=== PATIENT | male | born 1935 | race Caucasian/White ===

== ENCOUNTER 2017-02-02 08:38 | Emergency (ER) | payer OTHER ==
[2017-02-02 08:49] VITALS: BP 155/57; PULSE 85; TEMP 97.7; BMI 31.9
--- NOTE | 2017-02-02 09:10 | PDOC ---
History of Present Illness - General Chief Complaint: Pain, Acute Stated Complaint: RT ARM PAIN, NUMBNESS Time Seen by Provider: 02/02/17 09:08 History Source: Patient - History of Present Illness Initial Comments: 02/02/17 09:56 Mr. Cavazos is an 81 y/o male with a PMH of, presenting to [facility] complaining of R arm pain. He states that the pain began yesterday evening before bed and was mostly in his forearm and elbow. He went to the gym yesterday (02/01/17) and did a light arm work out with repetitive motions involving his biceps. He states that now it hurts to move his arm. He states that the pain is worse when he tries to bend his elbow and when he does, the pain radiates into his bicep. He rates the pain a 10/10. Admits to joint stiffness. Denies numbness or tingling , shoulder pain, trauma, and falling. He tried taking tylenol with minimal relief. Presents today for further evaluation of his arm pain. Past History - Past Medical History Allergies/Adverse Reactions: Allergies Allergy/AdvReac Type Severity Reaction Status Date / Time No Known Allergies Allergy Verified 02/02/17 08:49 Home Medications: Ambulatory Orders Docusate Sodium [Colace -] 100 mg PO TID #30 capsule 12/30/15 Furosemide [Lasix -] 40 mg PO DAILY #30 tablet 12/30/15 Ramipril 5 mg PO DAILY #30 capsule 12/30/15 Spironolactone [Aldactone -] 25 mg PO DAILY #0 12/30/15 Acetaminophen [Tylenol .Regular Strength -] 650 mg PO Q4H PRN #0 tablet Ascorbic Acid [Vitamin C -] 500 mg PO BID tablet 04/07/16 Atorvastatin Ca [Lipitor] 10 mg PO HS tablet 04/07/16 Cyanocobalamin Vit B-12 Inj. [Vitamin B12 Injection -] 1,000 mcg IM Q7D@1000 vial 04/07/16 Ferrous Sulfate [Feosol] 325 mg PO BID ud 04/07/16 Isosorbide Mononitrate [Imdur -] 30 mg PO DAILY tab.sr.24h 04/07/16 Multivitamins [Multivit ([facility] Formulary)] 1 tab PO DAILY tab 04/07/16 Nystatin Powder [Nystop Powder -] 1 applic TP DAILY applic 04/07/16 Oxycodone HCl [Roxicodone -] 10 mg PO Q4H PRN #0 tablet MDD 60 mg 04/07/16 Polyethylene Glycol 3350 [Miralax 119 gm Btl -] 17 gm PO DAILY bottle 04/07/16 Ranitidine [Zantac -] 150 mg PO DAILY tablet 04/07/16 Anemia: No Asthma: No Cancer: Yes (PROSTATE) Cardiac Disorders: Yes (ASHD S/P [place] FOLLOWING HIP SX) CVA: No COPD: No CHF: No Dementia: No Diabetes: No GI Disorders: Yes (COLON POLYPS-) Disorders: No HTN: Yes Hypercholesterolemia: Yes Liver Disease: No Seizures: No Thyroid Disease: No - Surgical History Abdominal Surgery: No Appendectomy: No Cardiac Surgery: No Cholecystectomy: No Lung Surgery: No Neurologic Surgery: No Orthopedic Surgery: Yes (THR) - Immunization History Immunization Up to Date: Yes - Psycho/Social/Smoking Cessation Hx Anxiety: No Suicidal Ideation: No Smoking Status: Yes Smoking History: Never smoked Have you smoked in the past 12 months: No Number of Cigarettes Smoked Daily: 0 If you are a former smoker, when did you quit?: many years Cigars Per Day: 0 Hx Alcohol Use: Yes (GALSS OF WINE DAILY) Drug/Substance Use Hx: No Substance Use Type: Alcohol Hx Substance Use Treatment: No *Physical Exam - Vital Signs Last Vital Signs Temp Pulse Resp BP Pulse Ox 97.7 F 85 18 155/57 99 02/02/17 08:45 02/02/17 08:45 02/02/17 08:45 02/02/17 08:45 02/02/17 08:45 - Physical Exam Comments: 02/02/17 09:43 GENERAL: Well developed, well nourished. Awake and alert. No acute distress. MUSCULOSKELETAL Mild swelling of the R elbow. TTP of R elbow and lateral epicondyle. (+) yergasons test in R arm. Range of motion of r forearm limited; flexion to 90 degrees, full extension. Strength: R: 4/5; L: 5/5 No bony deformities. EXTREMITIES: 2+ radial and brachial pulses b/l. No cyanosis. No clubbing. No edema. SKIN: Warm and dry. Normal capillary refill. No rashes. No jaundice. NEUROLOGICAL: Alert, awake, appropriate. Cranial nerves 2-12 intact. No deficits to light touch and temperature in upper extremities and lower extremities. No motor deficits in the in upper/lower extremities. Normoreflexic in the upper and lower extremities. Insurance Verification Rep strength equal B/L. Normal speech. Toes are down-going bilaterally. Gait is normal without ataxia. 02/02/17 12:12 X-Ray: No fracture, degenerative changes. Swelling, bone projections off of the distal humerous. Medical Decision Making - Medical Decision Making 02/02/17 10:15 Pt. is an 81 y/o male with a PMH of, who presents today complaining of R elbow pain. Given his history and physical exam, potential biceps tendonitis; medial epicondylitis.. DVT of upper extremities unlikely as distal pulses are strong and regular with good peripheral perfusion. Will order x-ray to r/o fracture. Treat for pain and re-evaluate. 02/02/17 10:52 Will discharge home at this time. Sling given for comfort. Recommend rest of elbow, avoiding the gym for at least 2 weeks, ibuprofen, and alternating heat and ice for comfort. Explained this to patient and confers understanding. Instructed pt. to see PCP and Dr. El if symptoms do not resolve in two weeks *DC/Admit/Observation/Transfer Diagnosis at time of Disposition: Biceps tendinitis of right upper extremity - Discharge Dispostion Disposition: HOME Condition at time of disposition: Stable Admit: No - Referrals Referrals: Duane El MD [Staff Physician] - - Patient Instructions Printed Discharge Instructions: DI for Tendinitis Additional Instructions: You were evaluated today for tendonitis. Your x-ray shows no broken bones in your elbow. Take ibuprofen (ex motrin, or advil) for pain relief. Do not exceed 3g of ibuprofen per day. Ice the affected area for 20 minutes at time with a 20 minute period of rest. You were also given a sling for comfort. Wear the sling during the day. Take a break from the sling mid day to stretch your arm. Take the sling off at night time before bed. You may use tiger balm (over the counter pain relef ointment) on the elbow. If you still have pain in 2 weeks, follow up with your PCP and Dr. El.
[2017-02-02] MEDS ORDERED: KETOROLAC TROMETHAMINE 30 MG/1 ML VIAL IM ONE (09:31)
[2017-02-02] MEDS ORDERED: KETOROLAC TROMETHAMINE 30 MG/1 ML VIAL ONE (09:35)
== END 2017-02-02 11:36 | disposition home or self-care (01) ==
LOC: JERFT 08:38
PROC: 3E0233Z Introduction of Anti-inflammatory into Muscle, Percutaneous Approach (ICD-10-PCS; principal; 2017-02-02)
DX: M75.21 Bicipital tendinitis, right shoulder (principal); I10 Essential (primary) hypertension; Z85.46 Personal history of malignant neoplasm of prostate; I25.10 Atherosclerotic heart disease of native coronary artery without angina pectoris; E78.00 Pure hypercholesterolemia, unspecified
CPT/HCPCS: 73070-TC-RT; 96372; 99281-25

== ENCOUNTER 2017-02-24 09:32 | Day surgery (SDC) | payer OTHER ==
[2017-02-24 09:36] VITALS: BMI 32.8
[2017-02-24] MEDS ORDERED: PROPOFOL 20 ML ONE (10:03)
[2017-02-24] MEDS ORDERED: LEVOFLOXACIN 500 MG IVPB 100 ML IVPB ONE (10:32)
[2017-02-24 10:52] VITALS: TEMP 98.1
[2017-02-24 12:06] VITALS: BP 140/57; PULSE 72
[2017-02-24 12:12] LABS: BASOPHIL 0.5 % (0-2.0); EOSINOPHIL 1.3 % (0-4.5); MCH 24.1 pg (25.7-33.7); MCHC 31.3 g/dl (32.0-35.9); MEAN CELL VOLUME 77.2 fl (80-96); MEAN PLT VOLUME 8.1 fl (7.5-11.1); NEUTROPHILS 75.4 % (42.8-82.8); PLATELET COUNT 114 K/MM3 (134-434); RDW 18.5 % (11.9-15.9); WHITE BLOOD COUNT 2.8 K/mm3 (4.0-10.0)
[2017-02-24 12:31] LABS: INR 1.41 (0.82-1.09); PROTHROMBIN TIME (PATIENT) 15.6 SEC (9.98-11.88)
[2017-02-24 12:51] LABS: ALBUMIN 2.5 g/dl (3.4-5.0); ANION GAP 10 (8-16); BILIRUBIN,TOTAL 1.1 mg/dL (0.2-1.0); CALCIUM 8.5 mg/dL (8.5-10.1); CO2 27 mmol/L (21-32); COCKROFT - GAULT 153.46; CREATININE 0.5 mg/dL (0.7-1.3); GLUCOSE,RANDOM 112 mg/dL (74-106); SGOT/AST 46 U/L (15-37); SGPT/ALT 43 U/L (12-78); TOT PROT 6.5 g/dl (6.4-8.2)
[2017-02-24 12:52] LABS: ALK PHOS 172 U/L (45-117)
[2017-02-24 16:09] LABS: FERRITIN 64.935 ng/ml (16.4-293.9)
[2017-02-25 06:06] LABS: SERUM IRON 18 ug/dL (38-169); TOTAL IRON BINDING CAPACITY 267 ug/dL (250-450); UIBC 249 ug/dL (111-343)
[2017-02-26 00:07] LABS: HEP B SURFACE AB Non Reactive (.)
[2017-02-26 10:58] LABS: ALPHA 2 MACROGLOBULINS,QN 212 mg/dL (110-276); BILIRUBIN TOTAL 0.8 mg/dL (0.0-1.2); FIBROSIS SCORE- 0.69 (0.00-0.21); GGT= 142 IU/L (0-65); GLUCOSE SERUM 120 mg/dL (65-99); HAPTOGLOBIN= 210 mg/dL (34-200); HEIGHT. 66 Inches (.); STEATOSIS SCORE- 0.84 (0.00-0.30); TRIGLYCERIDES= 78 mg/dL (0-149); WEIGHT. 203 LBS (.)
== END 2017-02-24 12:44 | disposition home or self-care (01) ==
LOC: JASU-ENDO 09:32
PROVIDERS: ATTEND Internal Medicine Gastroenterology
PROC: 0DJ08ZZ Inspection of Upper Intestinal Tract, Via Natural or Artificial Opening Endoscopic (ICD-10-PCS; principal; 2017-02-24 10:30)
DX: D64.9 Anemia, unspecified (principal); K21.9 Gastro-esophageal reflux disease without esophagitis; K76.6 Portal hypertension; K31.89 Other diseases of stomach and duodenum; I86.4 Gastric varices
CPT/HCPCS: 36415; 80053; 82103; 82105; 82390; 82728; 82941; 82977; 83516; 83540; 83550; 85025; 85610; 86038; 86704; 86706; 86708; 86803; 87340

== ENCOUNTER 2018-01-24 10:12 | Inpatient (IN) | payer OTHER ==
[2018-01-24 10:22] VITALS: BMI 28.7
--- NOTE | 2018-01-24 10:52 | PDOC ---
Attending Attestation - HPI HPI: The patient is an 82 year old male with a significant past medical history of hypertension, hyperlipidemia, PA, and colon polyps who presents to the emergency department complaining of lightheadedness, nausea and vomiting for approximately one week. The patient also reports associated symptom of epigastric discomfort. The patient describes the lightheadedness and nausea and episodes of non-bloody vomiting which prompted his visit to the emergency department. Of note, at last emergency department visit, he was told he has no need for pacemaker. The patient denies chest pain, shortness of breath, headache , and dizziness. Denies fevers, chills, nausea, vomiting, diarrhea, and constipation. Denies dysuria, frequency, urgency, and hematuria. Allergies: NKA Past surgical history: LEFT HIP REPLACEMENT, LEFT KNEE ARTHROSCOPY Social history: No reported cigarette, alcohol, or drug use. GLASS OF WINE DAILY ) PCP: Dr. Luna Daniels Supervisor Adult Education: Dr. Tillman - Physicial Exam PE: Vitals: Triage Vital signs reviewed General Appearance: no acute distress, well nourished well developed, Head: Atraumatic, normocephalic Chest Wall: Nontender Cardiac: +Bradycardic. +Murmur. +Systolic ejection. Lungs: Clear to auscultation bilateral, good air movement bilaterally, Abdomen: Soft, nondistended, normal bowel sounds, nontender to palpation Rectal: Exam deferred Extremities: Full range of motion to all extremities, no cyanosis, clubbing, or edema Skin: Warm and dry, no rashes or lesions, no petechiae Psych: normal mood, normal affect - Medical Decision Making The patient is an 82 year old male with a significant past medical history of hypertension, hyperlipidemia, PA, and colon polyps who presents to the emergency department complaining of lightheadedness, nausea and vomiting. Plan: -Cbc -Cmp -Troponin -Bnp -ECG -Chest plain film Contacted Dr. Tillman at 13:[address] Daniels at 13:50 <Claudia Mckeon - Last Filed: 01/24/18 15:56> - Resident Resident Name: Avel Rodney - ED Attending Attestation I have performed the following: I have examined & evaluated the patient, The case was reviewed & discussed with the resident, I agree w/resident's findings & plan, Exceptions are as noted - Medical Decision Making Symptomatic bradycardia did not respond glucagon likely from beta debbie overdose hemodynamically stable mentating well with good blood pressure We'll admit to telemetry with cardiology consult thing for further evaluation and management. <Ananth Shultz - Last Filed: 01/24/18 16:48> Heart Score/ECG Review - ECG Impressions Comment:: 01/24/18 16:48 Bradycardic at 38 unclear if there are P waves hidden may be fine A. fib with slow ventricular response. No ST elevations normal QRS no T-wave inversions. Interpreted by me. <Ananth Shultz - Last Filed: 01/24/18 16:48> Attestations - Attestations Documentation prepared by Claudia Mckeon, acting as medical device for Ananth Shultz MD. <Claudia Mckeon - Last Filed: 01/24/18 15:56>
--- NOTE | 2018-01-24 11:00 | PDOC ---
History of Present Illness - General Chief Complaint: Vomiting/Diarrhea Stated Complaint: DIZZINESS Time Seen by Provider: 01/24/18 10:37 - History of Present Illness Initial Comments: 01/24/18 11:51 The patient is an 82 year old male with a history of HTN, HLD, AL who presents for evaluation of lightheadedness, nausea, vomiting. The patient reports a 1 week history of worsening lightheadedness with associated nausea and multiple episodes of non-bloody, non-bilious vomiting prompting his presentation to the ED for evaluation. The patient was noted to be bradycardic to 35 in triage. 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 The patient otherwise denies fevers, chills, SOB, chest pain, abdominal pain, or changes with urination. Past History - Past Medical History Allergies/Adverse Reactions: Allergies Allergy/AdvReac Type Severity Reaction Status Date / Time cephalexin Allergy Verified 01/24/18 12:47 CEFALEXIN Allergy Uncoded 01/24/18 10:16 Home Medications: Ambulatory Orders Ascorbic Acid [Vitamin C -] 500 mg PO DAILY 01/24/18 Ferrous Sulfate 325 mg PO DAILY 01/24/18 Furosemide [Lasix] 40 mg PO DAILY 01/24/18 Isosorbide Mononitrate [Imdur -] 30 mg PO DAILY 01/24/18 Pantoprazole Sodium [Protonix -] 40 mg PO DAILY 01/24/18 Ramipril 2.5 mg PO DAILY 01/24/18 Simvastatin 20 mg PO DAILY 01/24/18 Spironolactone 25 mg PO DAILY 01/24/18 Anemia: No Asthma: No Cancer: Yes (PROSTATE) Cardiac Disorders: Yes (ASHD S/P [place] FOLLOWING HIP SX) CVA: No COPD: No CHF: No Dementia: No Diabetes: No GI Disorders: Yes (COLON POLYPS-) Disorders: No HTN: Yes Hypercholesterolemia: Yes Liver Disease: No Seizures: No Thyroid Disease: No - Surgical History Abdominal Surgery: No Appendectomy: No Cardiac Surgery: No Cholecystectomy: No Lung Surgery: No Neurologic Surgery: No Orthopedic Surgery: Yes (LEFT HIP REPLACEMENT, LEFT KNEE ARTHROSCOPY) - Immunization History Immunization Up to Date: Yes - Suicide/Smoking/Psychosocial Hx Smoking Status: Yes Smoking History: Never smoked Have you smoked in the past 12 months: No Number of Cigarettes Smoked Daily: 0 If you are a former smoker, when did you quit?: many years Cigars Per Day: 0 Information on smoking cessation initiated: No Hx Alcohol Use: Yes (GLASS OF WINE DAILY) Drug/Substance Use Hx: No Substance Use Type: Alcohol Hx Substance Use Treatment: No Review of Systems - Review of Systems Comments:: 01/24/18 12:05 Constitutional: Fatigue. No fevers, chills, malaise HEENT: No Rhinorrhea, nasal congestion, visual changes Cardiovascular: Lightheadedness. No chest pain, syncope, palpitations, Respiratory: No Cough, SOB, Hemoptysis, Gastrointestinal: Nausea, Vomiting, Diarrhea. No Abdominal pain, Constipation, Melena Genitourinary: No Dysuria, Frequency, Urgency, Hesitancy, Hematuria, Flank pain Musculoskeletal: No Myalgia, arthralgia Skin: No rashes, itching, bruising, pallor Neurologic: No Headache, Numbness, Weakness, or Tingling Psychiatric: No Hallucinations. No SI or HI *Physical Exam - Vital Signs Last Vital Signs Temp Pulse Resp BP Pulse Ox 97.3 F L 39 L 18 133/56 100 01/24/18 10:18 01/24/18 10:18 01/24/18 10:18 01/24/18 10:18 01/24/18 10:18 - Physical Exam Comments: 01/24/18 12:08 General Appearance: Nourished. No Apparent Distress HEENT: EOMI, JESSIKA. No Pharyngeal Erythema, Tonsillar Exudate, Tonsillar Erythema Neck: No Cervical Lymphadenopathy Respiratory/Chest: Lungs Clear, Normal Breath Sounds. No Crackles, Rales, Rhonchi, Wheezing Cardiovascular: Regular Rhythm, Bradycardic. No Murmur, Gallops, Rubs Gastrointestinal/Abdominal: Normal Bowel Sounds, Soft. No Guarding, Rebound, Tenderness Musculoskeletal: No CVA Tenderness Extremity: Normal Capillary Refill Integumentary: Pallor. Dry, Warm Neurologic: Fully Oriented, Alert, Normal Mood/Affect, Normal Response, Heart Score/ECG Review #1 ECG reviewed & interpreted by me at: 11:49 (Bradycardic to 35. Afib with slow ventricular response) General ECG Interpretation: Normal Intervals, No acute ischemic changes ED Treatment Course - LABORATORY CBC & Chemistry Diagram: 01/24/18 10:55 01/24/18 12:20 - RADIOLOGY Radiology Studies Ordered: Category Date Time Status CHEST X-RAY PORTABLE* [RAD] Stat Radiology 01/24/18 10:45 Ordered Medical Decision Making - Medical Decision Making 01/24/18 12:15 The patient is an 82 year old male with a history of HTN, HLD, AL who presents for evaluation of lightheadedness, nausea, vomiting. Differential includes but is not limited to: Symptomatic Bradycardia, Arrhythmia, ACS, Infections, Metabolic derangement. The patient's BP is stable here in the ED despite his bradycardia. Given his history and physical exam, it is likely his symptoms are due to his bradycardia. We will obtain a cbc, cmp, troponin, bnp, ekg, chest plain film to evaluate further. We will continue to monitor and reassess in the meantime. 01/24/18 12:18 Bedside US performed with Dr. Yu demonstrated normal cardiac contractility , bradycardia, and no pericardiac fluid. 01/24/18 13:52 CBC, cmp, troponin, bnp are unremarkable. The patient continues to remain clinically stable despite ongoing bradycardia. We discussed the case with the patient's rail track maintainer who has been made aware of the case. We gave the patient 2mg of glucagon for potential beta blockade reversal with minimal improvement in the patient's HR. We discussed the case with the admitting team who accepted the patient for admission. *DC/Admit/Observation/Transfer Diagnosis at time of Disposition: Bradycardia - Discharge Dispostion Condition at time of disposition: Guarded Admit: Yes - Referrals - Patient Instructions - Post Discharge Activity
[2018-01-24 11:05] LABS: BASO % 2.7 % (0-2.0); EOS % 5.5 % (0-4.5); HEMATOCRIT 26.3 % (35.4-49); HEMOGLOBIN 8.3 GM/dL (11.7-16.9); LYMPH % 16.3 % (8-40); MCH 26.4 pg (25.7-33.7); MCHC 31.6 g/dl (32.0-35.9); MEAN CELL VOLUME 83.6 fl (80-96); MONO % 14.6 % (3.8-10.2); NEUT % 60.9 % (42.8-82.8); PLATELET COUNT 121 K/MM3 (134-434); RBC 3.15 M/mm3 (4.00-5.60); RDW 22.1 % (11.9-15.9); WHITE BLOOD COUNT 3.9 K/mm3 (4.0-10.0)
[2018-01-24 11:23] LABS: INR 1.15 (0.82-1.09)
[2018-01-24 11:26] LABS: ACTIVATED PTT 32.7 SECONDS (26.9-34.4)
[2018-01-24] MEDS ORDERED: ONDANSETRON 4 MG/2 ML VIAL IVPUSH ONE (12:42)
[2018-01-24] MEDS ORDERED: SODIUM CHLORIDE 1,000 ML IV STA (12:42)
[2018-01-24] MEDS ORDERED: GLUCAGON 1 MG KIT IVPUSH ONE (12:42)
[2018-01-24] MEDS ORDERED: ONDANSETRON 4 MG/2 ML VIAL ONE (12:50)
[2018-01-24] MEDS ORDERED: GlUCAGON HUMAN RECOMBINANT 1 MG/VIAL ONE (12:50)
[2018-01-24 12:52] LABS: ALBUMIN 3.3 g/dl (3.4-5.0); ANION GAP 10 (8-16); BLOOD UREA NITROGEN 59 mg/dL (7-18); CALCIUM 8.4 mg/dL (8.5-10.1); CHLORIDE 105 mmol/L (98-107); CO2 24 mmol/L (21-32); CREATININE 2.1 mg/dL (0.7-1.3); GLUCOSE,RANDOM 119 mg/dL (74-106); POTASSIUM 4.9 mmol/L (3.5-5.1); SGOT/AST 33 U/L (15-37); SGPT/ALT 22 U/L (12-78); SODIUM 139 mmol/L (136-145)
[2018-01-24 12:53] LABS: ALK PHOS 133 U/L (45-117); BILIRUBIN,TOTAL 0.9 mg/dL (0.2-1.0); TOT PROT 7.4 g/dl (6.4-8.2)
--- NOTE | 2018-01-24 16:32 | CON.CARD ---
Cardiology Consult (text) - Consultation Consultation Note: IMP: Symptomatic Bradycardia, possibly due to Nadolol Syncope Prior h/o 2:1 AV block, Wenkebach resolved off beta blockers CAD s/p PCI PAF, not on AC due to low platelets, cirrhosis REC: 1. D/c all AV bar agents. Patient unable to confirm if he is on Nadolol or not , but a med list he provided indicated he was on it. 2. Agree with Glucagon, given in ER 3. Echo 4. Telemetry If bradycardia does not improve, may need PPM.
--- NOTE | 2018-01-24 17:27 | HP ---
Admitting History and Physical - Primary Care Physician PCP: Luna Mera - Admission Chief Complaint: nausea, vomiting and lightheadedness, near syncope History of Present Illness: developed abdominal discomfort, , Bm was "wrong" with rectal itching, then developed nausea, vomiting, lightheadedness and near-syncope for past two-three days of note was in ER while in [place] on 12.27.17 for diarrhea, at that time CT without contrast showed chr. hepatic disease and splenomegaly, no acute bowel disease has been seeing for iv iron infusions-h/o iron def.anemia, low platelet count and leukopenia, bone marrow last year was unremarkable. 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, duodenal inflammation.EGD .: portal HTN, gastric varices, Colonoscopy :3 polyps were removed, small angiodysplastic lesion at cecum, internal hemorrhoids.) Renal/: Yes: Cancer (h/o prostate ca), Other (prostate cancer treated with RT) Heme/Onc: Yes: Cancer (About one year of hormones and RT for prostate ca in past) Musculoskeletal: Yes: Osteoarthritis - Past Surgical History Past Surgical History: Yes: Joint Replacement (L THR 2012) - Smoking History Smoking history: Never smoked Have you smoked in the past 12 months: No Aproximately how many cigarettes per day: 0 If you are a former smoker, when did you quit?: many years - Alcohol/Substance Use Hx Alcohol Use: Yes (GLASS OF WINE DAILY) - Social History ADL: Independent History of Recent Travel: No Home Medications - Allergies Allergies/Adverse Reactions: Allergies Allergy/AdvReac Type Severity Reaction Status Date / Time cephalexin Allergy Verified 01/24/18 12:47 CEFALEXIN Allergy Uncoded 01/24/18 10:16 - Home Medications Home Medications: Ambulatory Orders Ascorbic Acid [Vitamin C -] 500 mg PO DAILY 01/24/18 Ferrous Sulfate 325 mg PO DAILY 01/24/18 Furosemide [Lasix] 40 mg PO DAILY 01/24/18 Isosorbide Mononitrate [Imdur -] 30 mg PO DAILY 01/24/18 Pantoprazole Sodium [Protonix -] 40 mg PO DAILY 01/24/18 Ramipril 2.5 mg PO DAILY 01/24/18 Simvastatin 20 mg PO DAILY 01/24/18 Spironolactone 25 mg PO DAILY 01/24/18 Family Disease History - Family Disease History Family Disease History: Diabetes: Father Review of Systems - Review of Systems Constitutional: reports: Lethargy, Loss of Appetite Gastrointestinal: reports: Diarrhea, Indigestion, Vomiting Physical Examination Vital Signs: Vital Signs Temperature 97.3 F L 01/24/18 10:18 Pulse Rate 42 L 01/24/18 16:15 Respiratory Rate 16 01/24/18 16:15 Blood Pressure 119/56 01/24/18 16:15 O2 Sat by Pulse Oximetry (%) 100 01/24/18 16:15 Constitutional: Yes: Well Nourished, No Distress, Calm Eyes: Yes: Conjunctiva Clear, EOM Intact HENT: Yes: Normocephalic Neck: Yes: Trachea Midline Cardiovascular: Yes: Bradycardia Respiratory: Yes: CTA Bilaterally Gastrointestinal: Yes: Normal Bowel Sounds, Soft Musculoskeletal: Yes: WNL Extremities: Yes: WNL Labs: CBC, BMP 01/24/18 10:55 01/24/18 12:20 Imaging - Results Chest X-ray: Report Reviewed EKG: Image Reviewed Problem List - Problems (1) Anemia, iron deficiency Code(s): D50.9 - IRON DEFICIENCY ANEMIA, UNSPECIFIED Qualifiers: Iron deficiency anemia type: other iron deficiency Qualified Code(s): D50.8 - Other iron deficiency anemias (2) Bradycardia Code(s): R00.1 - BRADYCARDIA, UNSPECIFIED (3) CAD (coronary artery disease) Code(s): I25.10 - ATHSCL HEART DISEASE OF [place] CORONARY ARTERY W/O ANG PCTRS Qualifiers: Coronary Disease-Associated Artery/Lesion type: [place] artery (4) HLD (hyperlipidemia) Code(s): E78.5 - HYPERLIPIDEMIA, UNSPECIFIED Qualifiers: Hyperlipidemia type: pure hypercholesterolemia Qualified Code(s): E78.00 - Pure hypercholesterolemia, unspecified; E78.0 - Pure hypercholesterolemia (5) Hypertension Code(s): I10 - ESSENTIAL (PRIMARY) HYPERTENSION Qualifiers: Hypertension type: essential hypertension Qualified Code(s): I10 - Essential (primary) hypertension (6) Thrombocytopenia Code(s): D69.6 - THROMBOCYTOPENIA, UNSPECIFIED (7) CHERIE (acute kidney injury) Code(s): N17.9 - ACUTE KIDNEY FAILURE, UNSPECIFIED Assessment/Plan symtomatic bradycardia on 20 mg nadolol-confirmed with pharmacy will stop nadolol, moniotor on telemetry renal insuff-baseline creat <1 about 2 months ago, will hold diuretics, received iv fluids in er, will monitor CAD stable for now iron def.anemia, multiple possibilities for GI bleed, recent endoscopies noted, monitor CBC, stool guiac GI eval requested cardiology appreciated cont PPI
--- NOTE | 2018-01-24 18:25 | CONS ---
CARDIOLOGY CONSULTATION DATE OF CONSULTATION: 01/24/2018 CONSULT REQUESTED BY: Dr. Mera REASON FOR CONSULTATION: Consulted is requested for symptomatic bradycardia. HISTORY OF PRESENT ILLNESS: The patient is an 82-year-old male with coronary artery disease status post MN and PCI approximately 4 years ago, atrial fibrillation not on anticoagulation due to cirrhosis and thrombocytopenia, history of 2:1 block Wenckebach which resolved after discontinuation of beta blockers several years ago. He now presents to the ER with 1 week of nausea, intermittent dizziness, and an episode of questionable syncope yesterday. He was found to be markedly bradycardic into the lower 30s with a narrow complex QRS. The underlying rhythm appears to be slow atrial fibrillation. He denies chest pain, PND, orthopnea. He does not recall the events of yesterday but does recall feeling suddenly lightheaded with a warm sensation and then states that he nearly passed out. Medication list includes nadolol; he is unclear who started this medication and cannot confirm whether or not he has been taking it. With physical activity at the bedside his heart rate increases to the high 40s. PAST MEDICAL HISTORY: As above and also includes hyperlipidemia and hypertension. HOME MEDICATIONS: Include ? nadolol, ramipril 2.5 mg daily, simvastatin 20 daily, Lasix 40 mg daily, iron sulfate 325 daily, vitamin C 500 mg daily, Protonix 40 mg daily, Imdur 30 mg daily. ALLERGIES: KEFLEX. FAMILY HISTORY: Noncontributory. SOCIAL HISTORY: There is a significant history of alcohol use. He states he drinks 1 glass of wine daily--there is a strong suspicion of heavier use of alcohol. The patient lives alone. PHYSICAL EXAMINATION: Vital Signs: He is afebrile. Temperature 97.3. Pulse rate is currently in the low 40s. Blood pressure 119/56. Oxygen saturation 100 on room air.Neck: No bruits. Heart: S1, 2 regular. Chest: Clear with no rales or wheezing. Abdomen: Soft, nontender. Extremities: No edema. DIAGNOSTIC STUDIES: His ECG shows a regular narrow complex bradycardia at 35 beats per minute with probable underlying atrial fibrillation, poor R wave progression. Cannot rule out old anterior infarct. Labs: White count 3.9, hematocrit 26.3, platelets 121. INR 1.15. Sodium 139, potassium 4.9. BUN and creatinine are elevated at 59/2.1. First troponin is negative. BNP 1804. Chest x-ray: No acute infiltrates. IMPRESSION: 1. Symptomatic bradycardia, possibly induced by nadolol. 2. Syncope. 3. Prior history of 2:1 atrioventricular block, Wenckebach--resolved when beta blockers discontinued. 4. History of coronary artery disease status post percutaneous coronary intervention (PCI). 5. Paroxysmal atrial fibrillation. RECOMMENDATIONS: 1. Observation with discontinuation of all AV bar agents. The patient is unable to confirm if he is in fact taking nadolol or not; however, it is on his medication list. 2. Agree with glucagon. 3. Echocardiogram for assessment of LV function. 4. Telemetry. If bradycardia does not improve, may need permanent pacemaker. TEAGAN CRISTOBAL M.D. [id number]
--- NOTE | 2018-01-24 23:48 | EKG ---
Test Reason : Blood Pressure : / mmHG Vent. Rate : 035 BPM Atrial Rate : 312 BPM P-R Int : 000 ms QRS Dur : 084 ms QT Int : 530 ms P-R-T Axes : 000 -21 038 degrees QTc Int : 404 ms ATRIAL FIBRILLATION WITH SLOW VENTRICULAR RESPONSE LOW VOLTAGE QRS POSSIBLE INFERIOR INFARCT , AGE UNDETERMINED CANNOT RULE OUT ANTERIOR INFARCT (CITED ON OR BEFORE 04-FEB-2013) ABNORMAL ECG WHEN COMPARED WITH ECG OF 26-MAR-2016 04:46, ATRIAL FIBRILLATION HAS REPLACED SINUS RHYTHM VENT. RATE HAS DECREASED BY 41 BPM Confirmed by ALVARO NUNEZ MD ([id number]) on 01/24/2018 11:47:58 PM Referred By: Confirmed By:ALVARO NUNEZ MD
[2018-01-25] MEDS ORDERED: BENZOCAINE/MENTH/CETYLPYRD CL 1 EACH LOZENGE MM PRN (00:28)
[2018-01-25 08:21] LABS: BASO % 1.1 % (0-2.0); EOS % 3.6 % (0-4.5); HEMOGLOBIN 7.7 GM/dL (11.7-16.9); LYMPH % 17.3 % (8-40); MCH 27.1 pg (25.7-33.7); MCHC 32.2 g/dl (32.0-35.9); MEAN CELL VOLUME 84.1 fl (80-96); MEAN PLT VOLUME 9.1 fl (7.5-11.1); MONO % 14.6 % (3.8-10.2); NEUT % 63.4 % (42.8-82.8); PLATELET COUNT 108 K/MM3 (134-434); RBC 2.86 M/mm3 (4.00-5.60); RDW 21.2 % (11.9-15.9); WHITE BLOOD COUNT 3.4 K/mm3 (4.0-10.0)
[2018-01-25 08:39] LABS: CHLORIDE 107 mmol/L (98-107); POTASSIUM 5.2 mmol/L (3.5-5.1); SODIUM 138 mmol/L (136-145)
--- NOTE | 2018-01-25 08:46 | PN ---
Progress Note, Physician Chief Complaint: Alert, oriented Seen and examined in ER Heart rate remains bradycardic: slightly improved into low 40s, occasional high 40s History of Present Illness: H/H drifting down - Current Medication List Current Medications: Active Medications Atorvastatin Calcium (Lipitor -) 10 mg PO HS MARIAH Benzocaine/Menthol (Cepacol Lozenge -) 1 each MM PRN PRN PRN Reason: SORE THROAT Last Admin: 01/25/18 03:01 Dose: 1 each Isosorbide Mononitrate (Imdur -) 30 mg PO DAILY MARIAH Pantoprazole Sodium (Protonix -) 40 mg PO DAILY MARIAH - Objective Vital Signs: Vital Signs Temperature 97.6 F 01/24/18 18:15 Pulse Rate 44 L 01/25/18 07:07 Respiratory Rate 16 01/25/18 07:07 Blood Pressure 144/72 01/25/18 07:07 O2 Sat by Pulse Oximetry (%) 94 L 01/25/18 07:07 Constitutional: Yes: No Distress, Calm Cardiovascular: Yes: Regular Rate and Rhythm Respiratory: Yes: CTA Bilaterally Gastrointestinal: Yes: Soft (mildly distended) Edema: No Neurological: Yes: Alert, Oriented Labs: CBC, BMP 01/25/18 06:50 01/25/18 06:50 INR, PTT INR 1.15 (0.82-1.09) H 01/24/18 10:55 Laboratory Tests 01/24/18 01/24/18 01/25/18 12:20 12:20 06:50 WBC 3.4 L Hgb 7.7 L Hct 24.0 L Plt Count 108 L Sodium Potassium Chloride Creatinine 2.1 H D Troponin I 0.02 01/25/18 06:50 WBC Hgb Hct Plt Count Sodium 138 Potassium 5.2 H Chloride 107 Creatinine Pending Troponin I - ....Imaging EKG: Image Reviewed Assessment/Plan IMP: Symptomatic Bradycardia, possibly due to Nadolol Syncope Prior h/o 2:1 AV block, Wenkebach resolved off beta blockers CAD s/p PCI PAF, not on AC due to low platelets, cirrhosis REC: 1. D/c all AV bar agents and continue TELE. Repeat ECG. 2. Agree with Glucagon, given in ER 3. Echo today 4. Work up of anemia as per PMD and GI If bradycardia does not resolve, will need PPM prior to discharge.
[2018-01-25 08:56] LABS: ANION GAP 9 (8-16); BLOOD UREA NITROGEN 72 mg/dL (7-18); CALCIUM 8.1 mg/dL (8.5-10.1); CO2 22 mmol/L (21-32); GLUCOSE,RANDOM 113 mg/dL (74-106); MAGNESIUM 2.8 mg/dL (1.8-2.4)
[2018-01-25] MEDS ORDERED: PATIENT'S OWN MEDICATION (NON-FORMULARY) (Simvastatin [Simvastatin] 20 MG) PO SCH (10:00)
[2018-01-25] MEDS ORDERED: PANTOPRAZOLE 40 MG TABLET (FP) PO SCH (10:00)
[2018-01-25] MEDS ORDERED: ISOSORBIDE MONONITRATE 30 MG TAB.SR.24H (FP) PO SCH (10:00)
--- NOTE | 2018-01-25 11:55 | PN ---
Progress Note (short form) - Note Progress Note: still bradycardic c/o abdominal discomfort and pain, did not have breakfast yet CBC, BMP 01/25/18 06:50 01/25/18 06:50 Vital Signs Period Temp Pulse Resp BP Sys/Brothers Pulse Ox Last 24 Hr 97.6 F-97.6 F 21-46 14-20 105-144/45-96 94-100 S1S2 andrea lungs cta abd distended, no rebound, no guarding no edema aaox3 no focal deficit IMP Bradycardia, off of nadolol , still in 30s on monitor likely will need PPM anemia slow chronic GI loss?-portal HTN, gastric varices, colon angiodysplastic cecal lesion type+cross for tomorrow, may need PRBC check CT abd. HTN stable CAD stable serial trop. neg. echo pending results Problem List - Problems (1) Anemia, iron deficiency Code(s): D50.9 - IRON DEFICIENCY ANEMIA, UNSPECIFIED Qualifiers: Iron deficiency anemia type: other iron deficiency Qualified Code(s): D50.8 - Other iron deficiency anemias (2) Bradycardia Code(s): R00.1 - BRADYCARDIA, UNSPECIFIED (3) CAD (coronary artery disease) Code(s): I25.10 - ATHSCL HEART DISEASE OF [place] CORONARY ARTERY W/O ANG PCTRS Qualifiers: Coronary Disease-Associated Artery/Lesion type: [place] artery (4) HLD (hyperlipidemia) Code(s): E78.5 - HYPERLIPIDEMIA, UNSPECIFIED Qualifiers: Hyperlipidemia type: pure hypercholesterolemia Qualified Code(s): E78.00 - Pure hypercholesterolemia, unspecified; E78.0 - Pure hypercholesterolemia (5) Hypertension Code(s): I10 - ESSENTIAL (PRIMARY) HYPERTENSION Qualifiers: Hypertension type: essential hypertension Qualified Code(s): I10 - Essential (primary) hypertension (6) Thrombocytopenia Code(s): D69.6 - THROMBOCYTOPENIA, UNSPECIFIED (7) CHERIE (acute kidney injury) Code(s): N17.9 - ACUTE KIDNEY FAILURE, UNSPECIFIED
--- NOTE | 2018-01-25 13:34 | EKG ---
Test Reason : Blood Pressure : / mmHG Vent. Rate : 042 BPM Atrial Rate : 045 BPM P-R Int : 000 ms QRS Dur : 080 ms QT Int : 504 ms P-R-T Axes : 000 -36 012 degrees QTc Int : 420 ms ATRIAL FIBRILLATION WITH SLOW VENTRICULAR RESPONSE LEFT AXIS DEVIATION LOW VOLTAGE QRS POSSIBLE INFERIOR INFARCT (CITED ON OR BEFORE 07-APR-2004) CANNOT RULE OUT ANTEROSEPTAL INFARCT (CITED ON OR BEFORE 04-FEB-2013) ABNORMAL ECG WHEN COMPARED WITH ECG OF 24-JAN-2018 10:31, NO SIGNIFICANT CHANGE WAS FOUND Confirmed by MD Pollard Daniel ([id number]) on 01/25/2018 1:34:26 PM Referred By: Confirmed By:Avel Pollard MD
--- NOTE | 2018-01-25 20:54 | CON.GI ---
Consult Consult Specialty:: Gastroenterology Referred by:: Dr. Luna Mera Reason for Consultation:: Abdominal pain - History of Present Illness Chief Complaint: Recurring abdominal pain, vomiting and diarrhea History of Present Illness: 82M presents with N/V, diarrhea and dizziness after eating fish on 01/21/18. The diarrhea resolved but h continues to have acid reflux and a queasy stomach. He tells me that he had a similar bout with N/V and diarrhea in [place] several weeks ago which also resolved after a few days. He explains that his bowel movements have been erratic and fluctuate between loose and hard. He has gaseous bloating and bilious reflux when he belches. He denies hematemesis and melena. He reports that he completed several iron infusions with Dr Juarez. Despite this his Hb has fallen to 7.7 with hydration. Haley is known to me from several office visits. He has alcoholic cirrhosis and finally stopped alcohol intake when I told him that his EGD on 02/24/17 revealed antral varices and portal gastropathy. Nonerosive acid reflux was also seen. I started him on Nadolol to protect against a variceal hemorrhage but this had to be stopped in this visit as he has been found to be bradycardic. 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 He had adenomatous polyps removed from the rectum, ascending and transverse colon. 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) , GERD, GI Bleed (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), Other (EGD :mid-esophageal varix, angiodysplastic lesion in entire stomach, duodenal inflammation.EGD 03.03: portal HTN, gastric varices, Colonoscopy :3 polyps were removed, small angiodysplastic lesion at cecum , internal hemorrhoids.) Hepatobiliary: Yes: Cirrhosis (Alcoholic cirrhosis) Renal/: Yes: Cancer (h/o prostate ca treated with RT), Other (prostate cancer treated with RT) Heme/Onc: Yes: Anemia, Thrombocytopenia, Other (pancytopenia) Musculoskeletal: Yes: Osteoarthritis - Past Surgical History Past Surgical History: Yes: 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 (year[place] age 24 History of Recent Travel: No Home Medications - Allergies Allergies/Adverse Reactions: Allergies Allergy/AdvReac Type Severity Reaction Status Date / Time cephalexin Allergy Verified 01/24/18 12:47 CEFALEXIN Allergy Uncoded 01/24/18 10:16 - Home Medications Home Medications: Ambulatory Orders Ascorbic Acid [Vitamin C -] 500 mg PO DAILY 01/24/18 Ferrous Sulfate 325 mg PO DAILY 01/24/18 Furosemide [Lasix] 40 mg PO DAILY 01/24/18 Isosorbide Mononitrate [Imdur -] 30 mg PO DAILY 01/24/18 Pantoprazole Sodium [Protonix -] 40 mg PO DAILY 01/24/18 Ramipril 2.5 mg PO DAILY 01/24/18 Simvastatin 20 mg PO DAILY 01/24/18 Spironolactone 25 mg PO DAILY 01/24/18 Family Disease History - Family Disease History Family Disease History: Diabetes: Mother ( 98 pancreatic cancer), CA: Mother , Brother (colon cancer,prostate cancer, alcoholic cirrhosis), Respiratory: Father ( age 54 pneumonia) Other Family History: Uncle had colon cancer Review of Systems - Review of Systems Constitutional: reports: Weakness Eyes: reports: No Symptoms HENT: reports: No Symptoms Neck: reports: No Symptoms Cardiovascular: reports: No Symptoms Respiratory: reports: No Symptoms Gastrointestinal: reports: Abdominal Pain, Bloating, Constipation, Diarrhea, Indigestion, Nausea, Vomiting Genitourinary: reports: No Symptoms Musculoskeletal: reports: Joint Pain Neurological: reports: No Symptoms Physical Exam-GI Vital Signs: Vital Signs Temperature 97.7 F 01/25/18 14:48 Pulse Rate 40 L 01/25/18 14:48 Respiratory Rate 18 01/25/18 14:48 Blood Pressure 156/66 01/25/18 14:48 O2 Sat by Pulse Oximetry (%) 100 01/25/18 14:48 CBC,CMP WBC 3.4 K/mm3 (4.0-10.0) L 01/25/18 06:50 RBC 2.86 M/mm3 (4.00-5.60) L 01/25/18 06:50 Hgb 7.7 GM/dL (11.7-16.9) L 01/25/18 06:50 Hct 24.0 % (35.4-49) L 01/25/18 06:50 MCV 84.1 fl (80-96) 01/25/18 06:50 MCH 27.1 pg (25.7-33.7) 01/25/18 06:50 MCHC 32.2 g/dl (32.0-35.9) 01/25/18 06:50 RDW 21.2 % (11.9-15.9) H 01/25/18 06:50 Plt Count 108 K/MM3 (134-434) L 01/25/18 06:50 MPV 9.1 fl (7.5-11.1) 01/25/18 06:50 Neutrophils % 63.4 % (42.8-82.8) 01/25/18 06:50 Lymphocytes % 17.3 % (8-40) 01/25/18 06:50 Monocytes % 14.6 % (3.8-10.2) H 01/25/18 06:50 Eosinophils % 3.6 % (0-4.5) 01/25/18 06:50 Basophils % 1.1 % (0-2.0) 01/25/18 06:50 Sodium 138 mmol/L (136-145) 01/25/18 06:50 Potassium 5.2 mmol/L (3.5-5.1) H 01/25/18 06:50 Chloride 107 mmol/L (98-107) 01/25/18 06:50 Carbon Dioxide 22 mmol/L (21-32) 01/25/18 06:50 Anion Gap 9 (8-16) 01/25/18 06:50 BUN 72 mg/dL (7-18) H D 01/25/18 06:50 Creatinine 2.0 mg/dL (0.7-1.3) H 01/25/18 06:50 Creat Clearance w eGFR 30.46 (>60) 01/24/18 12:20 Random Glucose 113 mg/dL (74-106) H 01/25/18 06:50 Calcium 8.1 mg/dL (8.5-10.1) L 01/25/18 06:50 Magnesium 2.8 mg/dL (1.8-2.4) H D 01/25/18 06:50 Total Bilirubin 0.9 mg/dL (0.2-1.0) 01/24/18 12:20 AST 33 U/L (15-37) D 01/24/18 12:20 ALT 22 U/L (12-78) D 01/24/18 12:20 Alkaline Phosphatase 133 U/L (45-117) H D 01/24/18 12:20 Creatine Kinase 78 IU/L (39-308) 01/25/18 09:23 Troponin I 0.03 ng/ml (0.00-0.05) D 01/25/18 09:23 B-Natriuretic Peptide 1804.87 pg/ml (5-450) H 01/24/18 12:20 Total Protein 7.4 g/dl (6.4-8.2) 01/24/18 12:20 Albumin 3.3 g/dl (3.4-5.0) L D 01/24/18 12:20 TSH 4.55 uIU/ml (0.358-3.74) H D 01/25/18 06:50 Current Medications Generic Name Dose Route Start Last Admin Trade Name Freq PRN Reason Stop Dose Admin Atorvastatin Calcium 10 mg 01/25/18 22:00 Lipitor - PO HS MARIAH Benzocaine/Menthol 1 each 01/25/18 00:28 01/25/18 03:01 Cepacol Lozenge - MM 1 each PRN PRN Administration SORE THROAT Pantoprazole Sodium 40 mg 01/25/18 10:00 01/25/18 10:13 Protonix - PO 40 mg DAILY MARIAH Administration Constitutional: Yes: Anxious Eyes: Yes: Conjunctiva Clear HENT: Yes: Normocephalic Neck: Yes: Supple Cardiovascular: Yes: Regular Rate and Rhythm, Murmur (early diastolic murmur) Respiratory: Yes: CTA Bilaterally Gastrointestinal Inspection: Yes: Distention (with prominent venous pattern, nontender) ...Auscultate: Yes: Normoactive Bowel Sounds ...Palpate: Yes: Other (scarred RUQ liver edge) ...Percussion: Yes: Tympanitic ...Rectal Exam: Yes: Guaiac Negative (loose mustard colored stool is guaiac negative), Sphincter Tone Poor Genitourinary: Yes: Other (no hernias, shrunken prostate) Edema: No Peripheral Pulses WNL: Yes Neurological: Yes: Alert, Oriented Labs: CBC, BMP 01/25/18 06:50 01/25/18 06:50 INR, PTT INR 1.15 (0.82-1.09) H 01/24/18 10:55 Imaging - Results Cat Scan: Report Reviewed (Mushtaqcandido Moralesjose luis Name: HALE[facility] COSTELLO DEPARTMENT OF RADIOLOGY Phys: Luna Mera MD : [id number] Age: 82 Sex: M [facility] Acct: [id number] Loc: [address] Exam Date: 01/25/18 Status: [place] [address] Unit Number: [id number] EXAM#: TYPE/EXAM : RESULT: [id number] CT/ABDOMEN PELVIS CT W/O CONTR HISTORY PROVIDED: Anemia and abdominal pain TECHNIQUE: Sequential axial images were obtained from the domes of the diaphragm through the symphysis pubis following the administration of oral contrast material. Evaluation of the lung bases demonstrates bilateral pleural effusions and lower lobe atelectasis. The heart is enlarged. There is a small amount of ascites within the abdomen and pelvis. The liver is somewhat small in size with a lobulated contour suspicious for advanced hepatocellular disease. The spleen is enlarged measuring 14.8 cm, an additional sign of cirrhosis. No mass lesions are identified within the liver or spleen. The pancreas, adrenal glands and kidneys demonstrate no significant abnormalities. There is no evidence of intra -abdominal or retroperitoneal lymphadenopathy or fluid collections. 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 This is a normal anatomic variant. There is no evidence of pneumoperitoneum, bowel obstruction or intraductal abscess. There is no CT evidence of acute appendicitis or diverticulitis. Examination of the pelvis demonstrates no evidence of pelvic masses, fluid collections or lymphadenopathy. There is no evidence of acute bony abnormalities. The patient is S/P total left hip replacement. IMPRESSION: 1. Findings consistent with advanced hepatocellular disease including a small and lobulated liver, primarily and ascites. 2. No acute pathology within the abdomen or pelvis. Please see above discussion. Reported By: Cristian Lucio MD 01/25/18 154 Technologist: Ananth Reeder Transcribed Date/Time: 01/25/181541 Cotton Buyer: Cristian Lucio Printed Date/Time: By: Signed by: Cristian Lucio Signed on: 15:43) Problem List - Problems (1) Anemia Assessment/Plan: Haley's anemia could reflect chroic bleeding form his RT proctitis, cecal; angiodysplasia and portal gastropathy but given his lack of blood in the stool and given his recent iron loading a bone marrow problem needs to be considered. I will order a retic count and haptoglobin and LDH. 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 He had no ulcers in but if his pain persists an EGD will need to be considered as he has been using NSAIDs. 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 Gastric varices are not managed by rubber band ligation and is they bleed he will need a TIPS procedure Code(s): I86.4 - GASTRIC VARICES (5) Colon adenomas Code(s): D12.6 - BENIGN NEOPLASM OF COLON, UNSPECIFIED (6) Angiodysplasia of cecum Code(s): K55.20 - ANGIODYSPLASIA OF COLON WITHOUT HEMORRHAGE (7) Radiation proctitis Code(s): K62.7 - RADIATION PROCTITIS (8) Dyspepsia Code(s): R10.13 - EPIGASTRIC PAIN (9) Vomiting Code(s): R11.10 - VOMITING, UNSPECIFIED Qualifiers: Vomiting type: unspecified (10) CHERIE (acute kidney injury) Assessment/Plan: Suspect this may reflect his NSAID usage but he is at risk for hepatorenal syndrome. I will check urine electrolytes. Would consult nephrology Code(s): N17.9 - ACUTE KIDNEY FAILURE, UNSPECIFIED
[2018-01-25] MEDS: ATORVASTATIN CA 10 MG TABLET (FP) PO SCH (22:25)
[2018-01-25] MEDS: PANTOPRAZOLE 40 MG TABLET (FP) PO SCH (22:26)
--- NOTE | 2018-01-26 08:16 | PN ---
Progress Note, Physician Chief Complaint: alert and oriented GI consult noted: multiple possible sources of anemia, bone marrow bx suggested- - but I believe this was done 1 or 2 years ago History of Present Illness: TELE: AF, chronic. Remains bradycardic in the mid 40s. Slight improvement off Nadolol but still marked with occasional pauses up to 3.1 seconds - Current Medication List Current Medications: Active Medications Atorvastatin Calcium (Lipitor -) 10 mg PO HS [facility] Last Admin: 01/25/18 22:25 Dose: 10 mg Benzocaine/Menthol (Cepacol Lozenge -) 1 each MM PRN PRN PRN Reason: SORE THROAT Last Admin: 01/25/18 03:01 Dose: 1 each Pantoprazole Sodium (Protonix -) 40 mg PO BID [facility] Last Admin: 01/25/18 22:26 Dose: 40 mg - Objective Vital Signs: Vital Signs Temperature 97.4 F L 01/26/18 06:15 Pulse Rate 46 L 01/26/18 06:15 Respiratory Rate 18 01/26/18 06:15 Blood Pressure 166/64 01/26/18 06:15 O2 Sat by Pulse Oximetry (%) 100 01/25/18 14:48 Constitutional: Yes: No Distress, Calm Cardiovascular: Yes: Pulse Irregular Respiratory: Yes: CTA Bilaterally Gastrointestinal: Yes: Soft Edema: No Neurological: Yes: Alert ...Motor Strength: WNL Labs: CBC, BMP 01/25/18 06:50 01/25/18 06:50 INR, PTT INR 1.15 (0.82-1.09) H 01/24/18 10:55 - ....Imaging Cat Scan: Report Reviewed EKG: Image Reviewed (as above) Assessment/Plan IMP: Symptomatic Bradycardia, worsened by Nadolol, but persistent now 48 hours off medication Syncope with normal LV function Prior h/o 2:1 AV block, Wenkebach resolved off beta blockers CAD s/p PCI Moderate AR PAF, not on AC due to low platelets, cirrhosis Chronic anemia: multifactorial Acute renal failure REC: Mr. Cavazos will need a PPM prior to discharge as his marked bradycardia persists off Nadolol. He has pauses up to 3 seconds, has had syncope. Will benefit from Nadolol halfway (Varices) and this will require a PPM. Few medical issues remain: anemia and ARF-- which are being addressed. If he needs a transfusion, we can transfuse prior to PPM. If a repeat marrow bx is needed, it probably can be done as outpatient. Once GFR stabilizes, the remainder of that work up can also be done on an outpatient basis.
--- NOTE | 2018-01-26 08:42 | PN ---
Progress Note (short form) - Note Progress Note: CBC, BMP 01/25/18 06:50 01/25/18 06:50 Vital Signs Period Temp Pulse Resp BP Sys/Brothers Pulse Ox Last 24 Hr 97.4 F-97.7 F 38-46 15-18 117-166/62-75 100-100 S1S2 andrea with afib on monitor lungs cta abd distended, no rebound, no guarding no edema aaox3 no focal deficit feels better, no new complaints soft BM as per pt, no diarrhea IMP Bradycardia, off of nadolol , still in 30-40s on monitor anemia slow chronic GI loss?-portal HTN, gastric varices, colon angiodysplastic cecal lesion bone marrow 2017 unremarkable CHERIE diuretics held, NSAIDs held, no obstruction on CT type+cross CBC, CMP echo, CT abd/pelvis reviewed may need blood transfusion, otherwise no contraindication to PPM placement Problem List - Problems (1) Anemia, iron deficiency Code(s): D50.9 - IRON DEFICIENCY ANEMIA, UNSPECIFIED Qualifiers: Iron deficiency anemia type: other iron deficiency Qualified Code(s): D50.8 - Other iron deficiency anemias (2) Bradycardia Code(s): R00.1 - BRADYCARDIA, UNSPECIFIED (3) CAD (coronary artery disease) Code(s): I25.10 - ATHSCL HEART DISEASE OF [place] CORONARY ARTERY W/O ANG PCTRS Qualifiers: Coronary Disease-Associated Artery/Lesion type: [place] artery (4) HLD (hyperlipidemia) Code(s): E78.5 - HYPERLIPIDEMIA, UNSPECIFIED Qualifiers: Hyperlipidemia type: pure hypercholesterolemia Qualified Code(s): E78.00 - Pure hypercholesterolemia, unspecified; E78.0 - Pure hypercholesterolemia (5) Hypertension Code(s): I10 - ESSENTIAL (PRIMARY) HYPERTENSION Qualifiers: Hypertension type: essential hypertension Qualified Code(s): I10 - Essential (primary) hypertension (6) Thrombocytopenia Code(s): D69.6 - THROMBOCYTOPENIA, UNSPECIFIED (7) HCERIE (acute kidney injury) Code(s): N17.9 - ACUTE KIDNEY FAILURE, UNSPECIFIED
[2018-01-26] MEDS: PANTOPRAZOLE 40 MG TABLET (FP) PO SCH ×2 (09:30→22:13)
[2018-01-26 09:53] LABS: BASO % 0.9 % (0-2.0); HEMOGLOBIN 7.6 GM/dL (11.7-16.9); LYMPH % 14.1 % (8-40); MCH 26.5 pg (25.7-33.7); MCHC 31.7 g/dl (32.0-35.9); MEAN CELL VOLUME 83.6 fl (80-96); MEAN PLT VOLUME 8.7 fl (7.5-11.1); MONO % 19.2 % (3.8-10.2); NEUT % 62.8 % (42.8-82.8); PLATELET COUNT 85 K/MM3 (134-434); RBC 2.87 M/mm3 (4.00-5.60); RDW 20.8 % (11.9-15.9); WHITE BLOOD COUNT 2.6 K/mm3 (4.0-10.0)
[2018-01-26 10:21] LABS: ALK PHOS 114 U/L (45-117); AMYLASE 55 U/L (25-115); ANION GAP 9 (8-16); BILIRUBIN,TOTAL 0.7 mg/dL (0.2-1.0); BLOOD UREA NITROGEN 81 mg/dL (7-18); CHLORIDE 106 mmol/L (98-107); CO2 22 mmol/L (21-32); CREATININE 1.7 mg/dL (0.7-1.3); GLUCOSE,RANDOM 191 mg/dL (74-106); LDH 230 U/L (87-241); POTASSIUM 4.9 mmol/L (3.5-5.1); SGOT/AST 31 U/L (15-37); SGPT/ALT 19 U/L (12-78); SODIUM 137 mmol/L (136-145); TOT PROT 6.7 g/dl (6.4-8.2)
[2018-01-26 10:23] LABS: LIPASE 357 U/L (73-393)
--- NOTE | 2018-01-26 12:32 | PN ---
GI Progress Note Subjective: GI NOte: Sima's main complaint is bloating and feeling constipated. - Objective Vital Signs: Vital Signs Temperature 97.6 F 01/26/18 09:00 Pulse Rate 45 L 01/26/18 09:00 Respiratory Rate 20 01/26/18 09:00 Blood Pressure 115/54 01/26/18 09:00 O2 Sat by Pulse Oximetry (%) 100 01/25/18 14:48 Laboratory Tests 01/24/18 01/24/18 01/25/18 10:55 12:20 06:50 WBC 3.4 L Hgb 8.3 L 7.7 L Plt Count 108 L Retic Count BUN 59 H D Creatinine 2.1 H D Total Bilirubin 0.9 AST 33 D ALT 22 D Alkaline Phosphatase 133 H D Albumin 01/25/18 01/26/18 01/26/18 06:50 09:35 09:35 WBC Hgb 7.6 L Plt Count Retic Count BUN 72 H D 81 H Creatinine 2.0 H 1.7 H Total Bilirubin AST ALT Alkaline Phosphatase Albumin 3.0 L 01/26/18 09:35 WBC Hgb Plt Count Retic Count 2.83 H D BUN Creatinine Total Bilirubin AST ALT Alkaline Phosphatase Albumin Constitutional: Anxious Gastrointestinal Inspection: Yes: Distention ...Auscultate: Yes: Hypoactive Bowel Sounds ...Palpate: Yes: Soft, Other (nontender) Labs: CBC, BMP 01/26/18 09:35 01/26/18 09:35 INR, PTT INR 1.15 (0.82-1.09) H 01/24/18 10:55 Problem List - Problems (1) Anemia Code(s): D64.9 - ANEMIA, UNSPECIFIED Qualifiers: Iron deficiency anemia type: chronic blood loss (2) Diarrhea Code(s): R19.7 - DIARRHEA, UNSPECIFIED Qualifiers: Diarrhea type: presumed infectious Qualified Code(s): R19.7 - Diarrhea, unspecified (3) Cirrhosis, alcoholic Code(s): K70.30 - ALCOHOLIC CIRRHOSIS OF LIVER WITHOUT ASCITES Qualifiers: Ascites presence: with ascites Qualified Code(s): K70.31 - Alcoholic cirrhosis of liver with ascites (4) 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 Will relieve with Miralax TID Code(s): K59.00 - CONSTIPATION, UNSPECIFIED
[2018-01-26] MEDS: POLYETHYLENE GLYCOL 3350 119 GM BTL PO SCH ×2 (14:07→22:13)
--- NOTE | 2018-01-26 22:07 | CONSULT ---
Consult Consult Specialty:: Hematology-Oncology Referred by:: Dr Daniels Reason for Consultation:: anemia - History of Present Illness Chief Complaint: lightheadedness History of Present Illness: 82 y/o male with hx multiple medical problems including early stage prostate cancer ,ETOH liver cirrhosis , hx GI bleeding from multiple sources in past , hx microcytic anemia , followed by Dr Juarez. Pt had bone marrow exam done which did not reveal any dyspoeisis and iron was trace (c/w iron def anemia) ; flow /genetics nl .Pt recently received 3-4 doses Ferlecit since Nov. , Hgb improved from 7 to 9 , but fell again to 7.6 in early January. 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 He was admitted w lightheadedness and Hgb again low , mild leukopenia/thrombocytopenia. 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: No: Alzheimer's, CVA, Dementia, Migraine, Multiple Sclerosis, Peripheral Neuropathy, Parkinson's, Seizure, Syncope, TIA, Vertigo, Other Cardio/Vascular: Yes: AFIB (paroxysmal), Aortic Insufficiency, CAD (STEMI 2012 after THR, s/p card.cath.), HTN, Hyperlipdemia, OR (STEMI 2012), Other (PAFib- not on AC due to thrombocytopenia and anemia) Pulmonary: Yes: Bronchitis Gastrointestinal: Yes: Gastritis (gastric antrum varices and portal gastopathy) , GERD, GI Bleed (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), Other (EGD :mid-esophageal varix, angiodysplastic lesion in entire stomach, duodenal inflammation.EGD 03.03: portal HTN, gastric varices, Colonoscopy :3 polyps were removed, small angiodysplastic lesion at cecum , internal hemorrhoids.) Hepatobiliary: Yes: Cirrhosis (Alcoholic cirrhosis) Renal/: Yes: Cancer (h/o prostate ca treated with RT), Other (prostate cancer treated with RT) Heme/Onc: No: Anemia, B12 Deficiency, Bleeding Disorder, Cancer, Current Chemotherapy, Current Radiation Therapy, Hemochromatosis, Hypercoaguable State, Myeloproliferative Synd, Sickle Cell Disease, Sickle Cell Trait, Thrombocytopenia, Other Infectious Disease: No: AIDS, C-Diff, Herpes Zoster, HIV, MRSA, STD's, Tuberculosis, VREF, Other Psych: No: Addictions, Anxiety, Bipolar, Depression, Panic, Psychosis, Schizophrenia, Other Musculoskeletal: Yes: Osteoarthritis Rheumatology: No: Fibromyalgia, Gout, Lupus, Rheumatoid Arthritis, Sarcoidosis, Vasculitis, Other ENT: No: Allergic Rhinitis, Sinusitis, Other Endocrine: Yes: Diabetes Mellitus - Past Surgical History Past Surgical History: Yes: Amputation (accidental distal left hand 2nd digit), Arthrosocopy (left knee), Colonoscopy, Joint Replacement (L THR 2012 with subsequent removal of hardware), Upper Endoscopy - Alcohol/Substance Use Hx Alcohol Use: Yes (GLASS OF WINE DAILY) Date of Last Use: 02/24/17 - Smoking History Smoking history: Never smoked Have you smoked in the past 12 months: No Aproximately how many cigarettes per day: 0 If you are a former smoker, when did you quit?: many years - Social History Usual Living Arrangement: Alone ADL: Independent 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 History of Recent Travel: No Home Medications - Allergies Allergies/Adverse Reactions: Allergies Allergy/AdvReac Type Severity Reaction Status Date / Time cephalexin Allergy Verified 01/24/18 12:47 CEFALEXIN Allergy Uncoded 01/24/18 10:16 - Home Medications Home Medications: Ambulatory Orders Ascorbic Acid [Vitamin C -] 500 mg PO DAILY 01/24/18 Ferrous Sulfate 325 mg PO DAILY 01/24/18 Furosemide [Lasix] 40 mg PO DAILY 01/24/18 Isosorbide Mononitrate [Imdur -] 30 mg PO DAILY 01/24/18 Pantoprazole Sodium [Protonix -] 40 mg PO DAILY 01/24/18 Ramipril 2.5 mg PO DAILY 01/24/18 Simvastatin 20 mg PO DAILY 01/24/18 Spironolactone 25 mg PO DAILY 01/24/18 Family Disease History - Family Disease History Family Disease History: Diabetes: Mother ( 98 pancreatic cancer), CA: Mother , Brother (colon cancer,prostate cancer, alcoholic cirrhosis), Respiratory: Father ( age 54 pneumonia) Other Family History: Uncle had colon cancer Review of Systems - Review of Systems Constitutional: reports: Weakness. denies: No Symptoms, Chills, Diaphoresis, Fever, Lethargy, Loss of Appetite, Malaise, Night Sweats, Unintentional Wgt. Loss, Other Eyes: denies: No Symptoms, Blind Spots, Blurred Vision, Double Vision, Eye Pain , Floaters, Photophobia, Recent Change in Vision, Other HENT: denies: No Symptoms, Difficult Swallowing, Ear Discharge, Ear Pain, Epistaxis, Gingival Bleeding, Hearing Loss, Mouth Swelling, Nasal Congestion, Ocular Prosthesis, Throat Pain, Toothache, Ringing in Ears, Other Neck: reports: No Symptoms Cardiovascular: reports: Shortness of Breath Respiratory: reports: SOB on Exertion Gastrointestinal: reports: No Symptoms Genitourinary: reports: No Symptoms Breasts: reports: No Symptoms Reported Musculoskeletal: reports: No Symptoms Integumentary: reports: No Symptoms Neurological: reports: No Symptoms Endocrine: reports: No Symptoms Hematology/Lymphatic: reports: No Symptoms Psychiatric: reports: No Symptoms Physical Exam Vital Signs: Vital Signs Temperature 98.7 F 01/26/18 19:25 Pulse Rate 46 L 01/26/18 19:25 Respiratory Rate 17 01/26/18 19:25 Blood Pressure 126/50 01/26/18 19:25 O2 Sat by Pulse Oximetry (%) 96 01/26/18 09:00 Constitutional: Yes: Well Nourished, No Distress, Calm, Pallor Eyes: Yes: WNL, Conjunctiva Clear, EOM Intact HENT: Yes: WNL, Atraumatic, Normocephalic Neck: Yes: WNL, Supple, Trachea Midline Cardiovascular: Yes: WNL, Regular Rate and Rhythm, S1, S2 Respiratory: Yes: WNL, Regular, CTA Bilaterally Gastrointestinal: Yes: WNL, Normal Bowel Sounds, Soft Renal/: Yes: WNL Breast(s): Yes: WNL Musculoskeletal: Yes: WNL Extremities: Yes: Amputation Edema: No Labs: CBC, BMP 01/26/18 09:35 01/26/18 09:35 Problem List - Problems (1) Hypersplenism Code(s): D73.1 - HYPERSPLENISM (2) Chronic hemorrhagic anemia Code(s): D50.0 - IRON DEFICIENCY ANEMIA SECONDARY TO BLOOD LOSS (CHRONIC) Assessment/Plan Pt known to my associate Dr Juarez who recently gave him 3-4 iv iron infusions for chronic anemia , which may be multifactorial but iron def / occ GI bleeding are contributory ,perhaps element of hypersplenism , mild chronic renal insuff . Pt had BM exam 1 yrs ago c/w irod def; will check our records to review those results but I dont bleive pt requires another BM exam now.Suggest continue to Tx as needed , keep Hgb >8 ; bradycardia , possible pacemaker . Check LDH , haptoglobin.Retic relatively low - hypoproliferative normocytic anemia. Pt to get pacemaker and f/u w Dr Juarez in 1-2 weeks to continue iron iv and monitor CBC's.
[2018-01-26] MEDS: ATORVASTATIN CA 10 MG TABLET (FP) PO SCH (22:13)
[2018-01-27] MEDS ORDERED: ACETAMINOPHEN 325 MG TABLET (FP) PO ONE (03:00)
[2018-01-27] MEDS: POLYETHYLENE GLYCOL 3350 119 GM BTL PO SCH ×3 (05:58→13:59)
[2018-01-27 07:30] LABS: HEMATOCRIT 23.9 % (35.4-49); HEMOGLOBIN 7.7 GM/dL (11.7-16.9); MCHC 32.2 g/dl (32.0-35.9); MEAN CELL VOLUME 83.8 fl (80-96); MEAN PLT VOLUME 8.9 fl (7.5-11.1); PLATELET COUNT 77 K/MM3 (134-434); RBC 2.85 M/mm3 (4.00-5.60); RDW 20.4 % (11.9-15.9); WHITE BLOOD COUNT 2.4 K/mm3 (4.0-10.0)
--- NOTE | 2018-01-27 07:38 | PN ---
Progress Note (short form) - Note Progress Note: episode of left shoulder pain last night, resolved with one tylenol received 1 unit PRBC Vital Signs Period Temp Pulse Resp BP Sys/Brothers Pulse Ox Last 24 Hr 97.6 F-98.7 F 45-64 17-20 115-144/46-95 96-97 S1S2 andrea with afib on monitor lungs cta abd distended, no rebound, no guarding no edema aaox3 no focal deficit feels better, no new complaints soft BM as per pt, no diarrhea IMP Bradycardia, off of nadolol , still in 30-40s on monitor anemia slow chronic GI loss?-portal HTN, gastric varices, colon angiodysplastic cecal lesion bone marrow 01.06.2017 unremarkable CHEIRE diuretics held, NSAIDs held, no obstruction on CT, improving type+cross CBC, CMP echo, CT abd/pelvis reviewed last bone marrow 01.06.17 awaiting PPM placement consults greatly appreciated Problem List - Problems (1) Anemia, iron deficiency Code(s): D50.9 - IRON DEFICIENCY ANEMIA, UNSPECIFIED Qualifiers: Iron deficiency anemia type: other iron deficiency Qualified Code(s): D50.8 - Other iron deficiency anemias (2) Bradycardia Code(s): R00.1 - BRADYCARDIA, UNSPECIFIED (3) CAD (coronary artery disease) Code(s): I25.10 - ATHSCL HEART DISEASE OF [place] CORONARY ARTERY W/O ANG PCTRS Qualifiers: Coronary Disease-Associated Artery/Lesion type: [place] artery (4) HLD (hyperlipidemia) Code(s): E78.5 - HYPERLIPIDEMIA, UNSPECIFIED Qualifiers: Hyperlipidemia type: pure hypercholesterolemia Qualified Code(s): E78.00 - Pure hypercholesterolemia, unspecified; E78.0 - Pure hypercholesterolemia (5) Hypertension Code(s): I10 - ESSENTIAL (PRIMARY) HYPERTENSION Qualifiers: Hypertension type: essential hypertension Qualified Code(s): I10 - Essential (primary) hypertension (6) Thrombocytopenia Code(s): D69.6 - THROMBOCYTOPENIA, UNSPECIFIED (7) CHERIE (acute kidney injury) Code(s): N17.9 - ACUTE KIDNEY FAILURE, UNSPECIFIED
[2018-01-27 07:49] LABS: CHLORIDE 107 mmol/L (98-107); POTASSIUM 4.5 mmol/L (3.5-5.1); SODIUM 140 mmol/L (136-145)
[2018-01-27 08:07] LABS: ALBUMIN 3.1 g/dl (3.4-5.0); ALK PHOS 112 U/L (45-117); ANION GAP 11 (8-16); BILIRUBIN,TOTAL 1.5 mg/dL (0.2-1.0); BLOOD UREA NITROGEN 78 mg/dL (7-18); CO2 22 mmol/L (21-32); CREATININE 1.4 mg/dL (0.7-1.3); GLUCOSE,RANDOM 121 mg/dL (74-106); SGOT/AST 32 U/L (15-37); SGPT/ALT 18 U/L (12-78); TOT PROT 6.9 g/dl (6.4-8.2)
--- NOTE | 2018-01-27 08:20 | PN ---
Progress Note, Physician Chief Complaint: TELE: AF slow V response 30s to low 40s with multiple pauses 2-3 seconds - Current Medication List Current Medications: Active Medications Atorvastatin Calcium (Lipitor -) 10 mg PO HS [facility] Last Admin: 01/26/18 22:13 Dose: 10 mg Benzocaine/Menthol (Cepacol Lozenge -) 1 each MM PRN PRN PRN Reason: SORE THROAT Last Admin: 01/25/18 03:01 Dose: 1 each Furosemide (Lasix Injection -) 40 mg IVPUSH ONCE ONE Stop: 01/27/18 08:18 Pantoprazole Sodium (Protonix -) 40 mg PO BID [facility] Last Admin: 01/26/18 22:13 Dose: 40 mg Polyethylene Glycol (Miralax (For Daily Use) -) 17 gm PO TID [facility] Last Admin: 01/27/18 06:09 Dose: 17 gm - Objective Vital Signs: Vital Signs Temperature 97.7 F 01/27/18 06:00 Pulse Rate 45 L 01/27/18 06:00 Respiratory Rate 17 01/27/18 06:00 Blood Pressure 136/58 01/27/18 06:00 O2 Sat by Pulse Oximetry (%) 97 01/26/18 21:00 Constitutional: Yes: No Distress Cardiovascular: Yes: Regular Rate and Rhythm Respiratory: Yes: CTA Bilaterally Gastrointestinal: Yes: Soft Edema: No Labs: CBC, BMP 01/27/18 06:50 INR, PTT INR 1.15 (0.82-1.09) H 01/24/18 10:55 Laboratory Tests 01/27/18 01/27/18 06:50 06:50 WBC 2.4 L Hgb 7.7 L Plt Count 77 L BUN Pending Creatinine Pending - ....Imaging EKG: Image Reviewed Assessment/Plan IMP: Symptomatic Bradycardia, worsened by Nadolol, but persistent now 48 hours off medication Syncope with normal LV function Prior h/o 2:1 AV block, [place] resolved off beta blockers CAD s/p PCI Moderate AR PAF, not on AC due to low platelets, cirrhosis Chronic anemia: multifactorial Acute renal failure, improved REC: Mr. Cavazos will need a PPM prior to discharge as his marked bradycardia persists off Nadolol now several days. He has pauses up to 3 seconds, has had syncope. Will benefit from Nadolol water quality analyst (Varices) and this will require a PPM. Discussed with EP, he is a candidate for a leadless device to minimize the risk of infection which he is prone to with his hx of varices and chronic GI blood loss. Few medical issues remain: anemia and renal insufficiency-- which are chronic and being addressed. Will transfuse another unit PRBCs. If a repeat marrow bx is needed, it can be done as outpatient. Case d/w PMD, EP patient and family including Michelle his daughter, Nitin his brother and his son Emiliano. Patient and family are in agreement for tx to [facility] for EP evaluation and PPM as per EP recommendation: leadless vs traditional device.
[2018-01-27 09:10] VITALS: BP 140/67; PULSE 48; TEMP 97.8
[2018-01-27] MEDS ORDERED: FUROSEMIDE 40 MG/4 ML INJECTABLE VIAL IVPUSH ONE (09:30)
[2018-01-27] MEDS: PANTOPRAZOLE 40 MG TABLET (FP) PO SCH (09:33)
[2018-01-27 10:06] LABS: ANISOCYTOSIS 1+; PLATELET ESTIMATE DECREASED
--- NOTE | 2018-01-29 08:41 | DS ---
Physical Examination Vital Signs: Vital Signs Temperature 97.8 F 01/27/18 09:00 Pulse Rate 48 L 01/27/18 09:00 Respiratory Rate 17 01/27/18 09:00 Blood Pressure 140/67 01/27/18 09:00 O2 Sat by Pulse Oximetry (%) 97 01/27/18 08:30 Constitutional: Yes: No Distress, Calm Eyes: Yes: EOM Intact HENT: Yes: Normocephalic Neck: Yes: Trachea Midline Cardiovascular: Yes: Bradycardia, Pulse Irregular Respiratory: Yes: CTA Bilaterally Gastrointestinal: Yes: Normal Bowel Sounds, Soft Edema: No Peripheral Pulses WNL: Yes Labs: CBC, BMP 01/27/18 06:50 01/27/18 06:50 Discharge Summary Reason For Visit: BRADYCARDIA Hospital Course: admitted for co/o weakness and abd.discomfort, was found to be severely bradycardic,hr remained in 30s-40s despite stopping bblocker. was transferred to tertiary care for PPM placement (of note abd ct was unremarkable other than chr.liver ds. and splenomegaly. chr.iron def.anemia, guiac neg. in hospital, transfused 2 unit PRBC seen by gi and heme, needs to f/up as outpt. please see consults.) Condition: Guarded - Instructions Referrals: Luna Mera MD [Primary Care Provider] - Disposition: TRANSFER ACUTE CARE/OTHER HOSP - Home Medications Comprehensive Discharge Medication List: Ambulatory Orders Ascorbic Acid [Vitamin C -] 500 mg PO DAILY 01/24/18 Ferrous Sulfate 325 mg PO DAILY 01/24/18 Furosemide [Lasix] 40 mg PO DAILY 01/24/18 Isosorbide Mononitrate [Imdur -] 30 mg PO DAILY 01/24/18 Pantoprazole Sodium [Protonix -] 40 mg PO DAILY 01/24/18 Ramipril 2.5 mg PO DAILY 01/24/18 Simvastatin 20 mg PO DAILY 01/24/18 Spironolactone 25 mg PO DAILY 01/24/18
== END 2018-01-27 16:27 | disposition short-term general hospital (02) | DRG 309 ==
LOC: JER 10:12 → JERBED 13:52 → OBSVTOIN 17:19 → J4W 01-26 06:30
PROVIDERS: ADMIT Internal Medicine; ATTEND Internal Medicine
PROC: 30233N1 Transfusion of Nonautologous Red Blood Cells into Peripheral Vein, Percutaneous Approach (ICD-10-PCS; principal; 2018-01-27)
DX: R00.1 Bradycardia, unspecified (principal); N17.9 Acute kidney failure, unspecified; J98.11 Atelectasis; D50.9 Iron deficiency anemia, unspecified; I25.10 Atherosclerotic heart disease of native coronary artery without angina pectoris; E78.5 Hyperlipidemia, unspecified; I10 Essential (primary) hypertension; D69.6 Thrombocytopenia, unspecified; R55 Syncope and collapse; Z98.61 Coronary angioplasty status; I48.0 Paroxysmal atrial fibrillation; I35.1 Nonrheumatic aortic (valve) insufficiency; K70.31 Alcoholic cirrhosis of liver with ascites; K62.89 Other specified diseases of anus and rectum; K55.20 Angiodysplasia of colon without hemorrhage; K31.89 Other diseases of stomach and duodenum; K31.84 Gastroparesis; I86.4 Gastric varices
CPT/HCPCS: 36415; 36430; 71045-TC-FY; 74176-TC; 80048; 80053; 82105; 82150; 82272; 82436; 82550; 83010; 83540; 83615; 83690; 83735; 83880; 84133; 84300; 84443; 84484; 85025; 85044; 85610; 85730; 86618; 86850; 86900; 86901; 86922; 87045; 87046; 87186; 87205; 87324; 87449; 93005; 93010; 93306-TC; 99285-25; G0378; J7030; P9038; P9058

== ENCOUNTER 2018-03-04 15:06 | Inpatient (IN) | payer OTHER ==
[2018-03-04 15:56] VITALS: BMI 34.7
--- NOTE | 2018-03-04 16:45 | CON.CARD ---
Cardiology Consult (text) - Consultation Consultation Note: Cardiology Seen and examined in ER, sent by PCP for worsening b/l edema, scrotal edema, significant weight gain. Refractory to outpatient diuresis. 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 + B/l LE edema + severe scrotal edema No CP/Palps/syncope + worsened abdominal distension, early satiety No LABS or ECG yet. 03/04/18 15:40 Temperature 97.5 F L Pulse Rate 85 Blood Pressure 124/64 Blood Pressure 84 Mean O2 Sat by Pulse 96 Oximetry (%) Weight 215 lb Physical exam: S1, 2. Reg + JVD Chest decreased at bases + distended abdomen, NT + 3+ B/l LE edema Severe scrotal edema IMP: Total body volume overload Multifactorial -cirrhosis/low albumin -AR, diastolic CHF REC: 1. Await labs 2. Trial IV Lasix, 40mg IV daily 3. May need tian 4. Not candidate for full AC, cont ASA 81mg if can tolerate from GI standpoint. Will follow
--- NOTE | 2018-03-04 18:43 | PDOC ---
History of Present Illness - General Chief Complaint: Edema Stated Complaint: EDEMA Time Seen by Provider: 03/04/18 18:23 - History of Present Illness Initial Comments: 03/04/18 21:17 The patient is an 82 year old male with a significant PMH of CAD (s/p PCI) CHB s /p PM 1 month ago at [facility], CHF, FL, HTN, EtOH cirrhosis, anemia, hyperlipidemia, and prostate CA who presents to the emergency department with shortness of breath and intermittent leg and scrotal swelling beginning approximately 1 month ago. The patient reports he developed bilateral leg swelling about 3-4 days after his pacemaker was placed. He also reports scrotal swelling and significant weight gain which he believes is due to fluid buildup. The patient also notes chest congestion and lower abdominal distension recently. The patient states he was sent in by Dr. Mera for evaluation. As per old records, the patient had a duplex on 02/15/18 which was negative for DVT. The patient denies chest pain, shortness of breath, headache and dizziness. Denies fever, chills, nausea, vomit, diarrhea and constipation. Denies dysuria, frequency, urgency and hematuria. Allergies: Cephalexin Past surgical history: PPM, PCI. Left hip surgery. Social history: Former smoker. Former alcohol use. No reported drug use. Cardio: Dr. Tillman Past History - Past Medical History Allergies/Adverse Reactions: Allergies Allergy/AdvReac Type Severity Reaction Status Date / Time cephalexin Allergy Verified 03/04/18 15:58 Home Medications: Ambulatory Orders Furosemide 20 mg PO DAILY 03/04/18 Isosorbide Mononitrate [Isosorbide Mononitrate ER] 30 mg PO DAILY 03/04/18 Nadolol 20 mg PO DAILY 03/04/18 Ramipril 2.5 mg PO DAILY 03/04/18 Simvastatin 20 mg PO DAILY 03/04/18 Spironolactone 25 mg PO DAILY 03/04/18 Anemia: No Asthma: No Cancer: Yes (PROSTATE) Cardiac Disorders: Yes (ASHD S/P FL FOLLOWING HIP SX) CVA: No COPD: No CHF: No Dementia: No Diabetes: No GI Disorders: Yes (COLON POLYPS-) Disorders: No HTN: Yes Hypercholesterolemia: Yes Liver Disease: No Seizures: No Thyroid Disease: No - Surgical History Abdominal Surgery: No Appendectomy: No Cardiac Surgery: No Cholecystectomy: No Lung Surgery: No Neurologic Surgery: No Orthopedic Surgery: Yes (LEFT HIP REPLACEMENT, LEFT KNEE ARTHROSCOPY) - Immunization History Immunization Up to Date: Yes - Suicide/Smoking/Psychosocial Hx Smoking Status: Yes Smoking History: Unknown if ever smoked Have you smoked in the past 12 months: No Number of Cigarettes Smoked Daily: 0 If you are a former smoker, when did you quit?: many years Cigars Per Day: 0 Hx Alcohol Use: Yes (GLASS OF WINE DAILY) Drug/Substance Use Hx: No Substance Use Type: None Hx Substance Use Treatment: No Review of Systems - Review of Systems Comments:: 03/04/18 21:17 GENERAL/CONSTITUTIONAL: No fever or chills. No weakness. HEAD, EYES, EARS, NOSE AND THROAT: No change in vision. No ear pain or discharge. No sore throat. GASTROINTESTINAL: (+) Abdominal distension. No nausea, vomiting, diarrhea or constipation. GENITOURINARY: No dysuria, frequency, or change in urination. CARDIOVASCULAR: (+) Chest congestion. No chest pain. RESPIRATORY: (+) Shortness of breath. No cough, wheezing, or hemoptysis. MUSCULOSKELETAL: (+) Bilateral leg swelling. (+) Scrotal swelling. No joint pain. No neck or back pain. SKIN: No rash NEUROLOGIC: No headache, vertigo, loss of consciousness, or change in strength/ sensation. ENDOCRINE: No increased thirst. No abnormal weight change. HEMATOLOGIC/LYMPHATIC: No anemia, easy bleeding, or history of blood clots. ALLERGIC/IMMUNOLOGIC: No hives or skin allergy. *Physical Exam - Vital Signs Last Vital Signs Temp Pulse Resp BP Pulse Ox 97.5 F L 85 19 124/64 96 03/04/18 15:40 03/04/18 15:40 03/04/18 15:40 03/04/18 15:40 03/04/18 15:40 - Physical Exam Comments: 03/04/18 21:19 GENERAL: Awake, alert, and fully oriented, in no acute distress HEAD: No signs of trauma EYES: PERRLA, EOMI, sclera anicteric, conjunctiva clear ENT: Moist mucosa LUNGS: Breath sounds equal, clear to auscultation bilaterally. No wheezes, and no crackles HEART: Regular rate and rhythm, normal S1 and S2, no murmurs, rubs or gallops ABDOMEN: Soft, nontender, normoactive bowel sounds. No guarding, no rebound. No masses : 2+ pitting scrotal edema and mild ttp. EXTREMITIES: Normal range of motion, No clubbing or cyanosis. No cords, erythema. 3+ pitting edema from feet to lower abdomen consistent with anasarca NEUROLOGICAL: Normal speech, cranial nerves intact, 5/5 strength in all 4 extremities, normal sensation to light touch in all 4 extremities, normal cerebellar exam, SKIN: Warm, Dry, normal turgor, no rashes or lesions noted. Heart Score/ECG Review #1 03/04/18 21:24 My EKG read - V-paced rhythm, rate 82 ED Treatment Course - LABORATORY CBC & Chemistry Diagram: 03/04/18 19:00 03/04/18 19:00 - RADIOLOGY Radiology Studies Ordered: Category Date Time Status CHEST X-RAY PORTABLE* [RAD] Stat Radiology 03/04/18 18:26 Ordered Medical Decision Making - Medical Decision Making 03/04/18 21:25 82yo M with MMP included CAH, CHB s/p PPM, etoh cirrhosis presents with anasara and scrotal edema. Vitals wnl. EKG v-paced. DDx includes progressive liver failure vs CHF vs DVT. Plan: -labs -CXR -likely admit *DC/Admit/Observation/Transfer Diagnosis at time of Disposition: Shortness of breath, Peripheral edema, Scrotal edema, Dyspnea - Referrals - Patient Instructions - Post Discharge Activity
[2018-03-04 18:59] LABS: URINE APPEARANCE SLCLOUDY; URINE BILIRUBIN NEGATIVE (<2.0 mg/dL); URINE COLOR YELLOW; URINE GLUCOSE (UA) NEGATIVE (NEGATIVE); URINE KETONE NEGATIVE (NEGATIVE); URINE LEUK ESTERASE NEGATIVE (NEGATIVE); URINE NITRITE NEGATIVE (NEGATIVE); URINE UROBILINOGEN NEGATIVE mg/dL (0.2-1.0)
[2018-03-04 19:07] LABS: BASO % 1.1 % (0-2.0); EOS % 5.6 % (0-4.5); HEMATOCRIT 26.6 % (35.4-49); HEMOGLOBIN 8.6 GM/dL (11.7-16.9); LYMPH % 17.5 % (8-40); MCH 28.5 pg (25.7-33.7); MCHC 32.3 g/dl (32.0-35.9); MEAN CELL VOLUME 88.2 fl (80-96); MEAN PLT VOLUME 9.2 fl (7.5-11.1); MONO % 14.1 % (3.8-10.2); NEUT % 61.7 % (42.8-82.8); PLATELET COUNT 60 K/MM3 (134-434); RBC 3.02 M/mm3 (4.00-5.60); RDW 18.6 % (11.9-15.9); WHITE BLOOD COUNT 2.3 K/mm3 (4.0-10.0)
[2018-03-04 19:08] LABS: URINE PROTEIN 1+ (NEGATIVE)
[2018-03-04 19:30] LABS: ALBUMIN 3.2 g/dl (3.4-5.0); ANION GAP 3 (8-16); BLOOD UREA NITROGEN 39 mg/dL (7-18); CALCIUM 8.1 mg/dL (8.5-10.1); CHLORIDE 108 mmol/L (98-107); CO2 30 mmol/L (21-32); GLUCOSE,RANDOM 95 mg/dL (74-106); POTASSIUM 4.4 mmol/L (3.5-5.1); SGOT/AST 38 U/L (15-37); SGPT/ALT 24 U/L (12-78); SODIUM 141 mmol/L (136-145)
[2018-03-04 19:32] LABS: EPI CELLS RARE /HPF (FEW); URINE BACTERIA RARE /hpf (NONE SEEN); URINE HYALINE CAST 4 /lpf; URINE MUCUS RARE
[2018-03-04 19:45] LABS: ALK PHOS 115 U/L (45-117); BILIRUBIN,TOTAL 1.1 mg/dL (0.2-1.0); TOT PROT 7.2 g/dl (6.4-8.2)
--- NOTE | 2018-03-04 20:15 | PDOC ---
*Physical Exam - Vital Signs Last Vital Signs Temp Pulse Resp BP Pulse Ox 97.5 F L 85 19 124/64 96 03/04/18 15:40 03/04/18 15:40 03/04/18 15:40 03/04/18 15:40 03/04/18 15:40 ED Treatment Course - LABORATORY CBC & Chemistry Diagram: 03/04/18 19:00 03/04/18 19:00 - ADDITIONAL ORDERS Additional order review: Laboratory Results 03/04/18 03/04/18 03/04/18 19:00 19:00 18:25 Sodium 141 Potassium 4.4 Chloride 108 H Carbon Dioxide 30 D Anion Gap 3 L BUN 39 H D Creatinine 1.0 D Creat Clearance w eGFR > 60 Random Glucose 95 D Calcium 8.1 L Total Bilirubin 1.1 H D AST 38 H ALT 24 D Alkaline Phosphatase 115 Troponin I < 0.02 B-Natriuretic Peptide 1880.21 H Total Protein 7.2 Albumin 3.2 L Urine Color Yellow Urine Appearance Slcloudy Urine pH 5.0 Ur Specific [place] 1.017 Urine Protein 1+ H Urine Glucose (UA) Negative Urine Ketones Negative Urine Blood Negative Urine Nitrite Negative Urine Bilirubin Negative Urine Urobilinogen Negative Ur Leukocyte Esterase Negative Urine WBC (Auto) 1 Urine RBC (Auto) None Ur Epithelial Cells Rare Urine Bacteria Rare Hyaline Casts 4 Urine Mucus Rare 03/04/18 19:00 RBC 3.02 L MCV 88.2 MCHC 32.3 RDW 18.6 H MPV 9.2 Neutrophils % 61.7 Lymphocytes % 17.5 D Monocytes % 14.1 H Eosinophils % 5.6 H D Basophils % 1.1 Medical Decision Making - Medical Decision Making 03/04/18 20:13 I received patient on signout; pt was sent here wor refractory edema of lower extremities and scrotum. His albumin is low, and he is chronically anemic. Hb is stable at 8. Pt will be admitted to his PMD Dr. Mera 03/04/18 20:14 03/04/18 20:15 *DC/Admit/Observation/Transfer Diagnosis at time of Disposition: Shortness of breath, Peripheral edema, Scrotal edema, Dyspnea - Discharge Dispostion Condition at time of disposition: Guarded Decision to Admit order: Yes - Referrals - Patient Instructions - Post Discharge Activity
--- NOTE | 2018-03-04 21:23 | HP ---
Admitting History and Physical - Primary Care Physician PCP: Luna Mera - Admission Chief Complaint: edema History of Present Illness: patient came to see me in office for progressively worsening edema, carrillo had generalized fluid overload with diffuse edema, ems was called to transport pt to hospital for evaluation and iv diuresis. approx 1 month ago recieved PPM, since then he has gained over 20 pounds. 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) , GERD, GI Bleed (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), Other (EGD :mid-esophageal varix, angiodysplastic lesion in entire stomach, duodenal inflammation.EGD 03.03: portal HTN, gastric varices, Colonoscopy :3 polyps were removed, small angiodysplastic lesion at cecum , internal hemorrhoids.) Hepatobiliary: Yes: Cirrhosis (Alcoholic cirrhosis) Renal/: Yes: Cancer (h/o prostate ca treated with RT), Other (prostate cancer treated with RT) Heme/Onc: No: Anemia, B12 Deficiency, Bleeding Disorder, Cancer, Current Chemotherapy, Current Radiation Therapy, Hemochromatosis, Hypercoaguable State, Myeloproliferative Synd, Sickle Cell Disease, Sickle Cell Trait, Thrombocytopenia, Other Musculoskeletal: Yes: Osteoarthritis Endocrine: Yes: Diabetes Mellitus - Past Surgical History Past Surgical History: Yes: Amputation (accidental distal left hand 2nd digit), Arthrosocopy (left knee), Colonoscopy, Joint Replacement (L THR 2012 with subsequent removal of hardware), Permanent Pacemaker (leadless placed in ) , Upper Endoscopy - Smoking History Smoking history: Unknown if ever smoked Have you smoked in the past 12 months: No Aproximately how many cigarettes per day: 0 If you are a former smoker, when did you quit?: many years - Alcohol/Substance Use Hx Alcohol Use: Yes (GLASS OF WINE DAILY) Date of Last Use: 02/24/17 - Social History Usual Living Arrangement: Yes: Alone ADL: Independent 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 History of Recent Travel: No Home Medications - Allergies Allergies/Adverse Reactions: Allergies Allergy/AdvReac Type Severity Reaction Status Date / Time cephalexin Allergy Verified 03/04/18 15:58 - Home Medications Home Medications: Ambulatory Orders Furosemide 20 mg PO DAILY 03/04/18 Isosorbide Mononitrate [Isosorbide Mononitrate ER] 30 mg PO DAILY 03/04/18 Nadolol 20 mg PO DAILY 03/04/18 Ramipril 2.5 mg PO DAILY 03/04/18 Simvastatin 20 mg PO DAILY 03/04/18 Spironolactone 25 mg PO DAILY 03/04/18 Family Disease History - Family Disease History Family Disease History: Diabetes: Mother ( 98 pancreatic cancer), CA: Mother , Brother (colon cancer,prostate cancer, alcoholic cirrhosis), Respiratory: Father ( age 54 pneumonia) Review of Systems - Review of Systems Constitutional: reports: No Symptoms Eyes: reports: No Symptoms HENT: reports: No Symptoms Neck: reports: No Symptoms Cardiovascular: reports: No Symptoms Respiratory: reports: SOB (on mild exertion and upon eating) Gastrointestinal: reports: Bloating, Other (distended abdomen) Genitourinary: reports: Other (feels like he has decreased urine output in past days) Musculoskeletal: reports: Joint Pain, Joint Swelling Integumentary: reports: No Symptoms Neurological: reports: No Symptoms Endocrine: reports: No Symptoms Physical Examination Vital Signs: Vital Signs Temperature 97.5 F L 03/04/18 15:40 Pulse Rate 85 03/04/18 15:40 Respiratory Rate 19 03/04/18 15:40 Blood Pressure 124/64 03/04/18 15:40 O2 Sat by Pulse Oximetry (%) 96 03/04/18 15:40 Constitutional: Yes: Calm Eyes: Yes: EOM Intact HENT: Yes: Normocephalic Neck: Yes: Trachea Midline Cardiovascular: Yes: Pulse Irregular, JVD, Murmur Respiratory: Yes: CTA Bilaterally Gastrointestinal: Yes: Normal Bowel Sounds, Ascites. No: Tenderness (bulging umbilical hernia) Renal/: Yes: Other (significant penile and scrotal edema) Musculoskeletal: Yes: Joint Stiffness, Joint Swelling (bilateral knee, chronic) Edema: Yes Edema: LLE: 2+, RLE: 2+ Peripheral Pulses WNL: Yes Integumentary: Yes: WNL Neurological: Yes: WNL ...Motor Strength: WNL Psychiatric: Yes: WNL Labs: CBC, BMP 03/04/18 19:00 03/04/18 19:00 Imaging - Results Chest X-ray: Report Reviewed Problem List - Problems (1) Anasarca Code(s): R60.1 - GENERALIZED EDEMA (2) Shortness of breath Code(s): R06.02 - SHORTNESS OF BREATH (3) CAD (coronary artery disease) Code(s): I25.10 - ATHSCL HEART DISEASE OF [place] CORONARY ARTERY W/O ANG PCTRS Qualifiers: Coronary Disease-Associated Artery/Lesion type: [place] artery (4) Thrombocytopenia Code(s): D69.6 - THROMBOCYTOPENIA, UNSPECIFIED (5) Pancytopenia Code(s): D61.818 - OTHER PANCYTOPENIA (6) Anemia, iron deficiency Code(s): D50.9 - IRON DEFICIENCY ANEMIA, UNSPECIFIED Qualifiers: Iron deficiency anemia type: other iron deficiency Qualified Code(s): D50.8 - Other iron deficiency anemias (7) Cirrhosis, alcoholic Code(s): K70.30 - ALCOHOLIC CIRRHOSIS OF LIVER WITHOUT ASCITES Qualifiers: Ascites presence: with ascites Qualified Code(s): K70.31 - Alcoholic cirrhosis of liver with ascites (8) 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 Assessment/Plan admit to regular floor for iv diuresis cont other cardiac medications monitor electrolytes daily weight obtain abd us (may need paracentesis)
[2018-03-04] MEDS: ATORVASTATIN CA 10 MG TABLET (FP) PO SCH (23:30)
[2018-03-05] MEDS: FUROSEMIDE 40 MG/4 ML INJECTABLE VIAL IVPUSH SCH ×2 (06:44→13:02)
[2018-03-05 08:36] LABS: CHLORIDE 108 mmol/L (98-107); POTASSIUM 4.4 mmol/L (3.5-5.1); SODIUM 140 mmol/L (136-145)
[2018-03-05 09:03] LABS: ALBUMIN 3.2 g/dl (3.4-5.0); ALK PHOS 106 U/L (45-117); ANION GAP 5 (8-16); BILIRUBIN,TOTAL 0.9 mg/dL (0.2-1.0); BLOOD UREA NITROGEN 41 mg/dL (7-18); CALCIUM 8.3 mg/dL (8.5-10.1); CO2 27 mmol/L (21-32); GLUCOSE,RANDOM 95 mg/dL (74-106); SGOT/AST 38 U/L (15-37); SGPT/ALT 22 U/L (12-78)
[2018-03-05] MEDS ORDERED: PT OWN MED DRAWER 7, Y5N ONE (09:30)
[2018-03-05] MEDS: ISOSORBIDE MONONITRATE 30 MG TAB.SR.24H (FP) PO SCH (09:31)
[2018-03-05] MEDS: SPIRONOLACTONE 25 MG TABLET (FP) PO SCH (09:31)
[2018-03-05] MEDS: RAMIPRIL 2.5 MG CAPSULE (FP) PO SCH (09:31)
[2018-03-05 09:49] LABS: BASO % 1.1 % (0-2.0); EOS % 6.8 % (0-4.5); HEMATOCRIT 25.4 % (35.4-49); HEMOGLOBIN 8.4 GM/dL (11.7-16.9); LYMPH % 19.6 % (8-40); MCHC 33.1 g/dl (32.0-35.9); MEAN CELL VOLUME 87.6 fl (80-96); MEAN PLT VOLUME 9.4 fl (7.5-11.1); MONO % 14.4 % (3.8-10.2); NEUT % 58.1 % (42.8-82.8); PLATELET COUNT 58 K/MM3 (134-434); RDW 18.7 % (11.9-15.9); WHITE BLOOD COUNT 2.5 K/mm3 (4.0-10.0)
[2018-03-05] MEDS: NADOLOL 20 MG TABLET (FP) PO SCH (10:22)
--- NOTE | 2018-03-05 17:46 | PN ---
Progress Note, Physician Chief Complaint: Pt alert; c/o scrotal swelling; denies chest pain; +abdominal discomfort, with shortness of breath when changes position or eats. History of Present Illness: The patient is an 82 year old white male with a significant PMH of CAD (s/p PCI ) CHB s/p PM 1 month ago at [facility], diastolic CHF, [place], HTN, EtOH cirrhosis, anemia, hyperlipidemia, and prostate CA who presents to the emergency department with shortness of breath and intermittent leg and scrotal swelling beginning approximately 1 month ago. The patient reports he developed bilateral leg swelling about 3-4 days after his pacemaker was placed. He also reports scrotal swelling and significant weight gain which he believes is due to fluid buildup. The patient also notes chest congestion and lower abdominal distension recently. The patient states he was sent in by Dr. Mera for evaluation. As per old records, the patient had a duplex on 02/15/18 which was negative for DVT. - Current Medication List Current Medications: Active Medications Atorvastatin Calcium (Lipitor -) 10 mg PO HS [facility] Last Admin: 03/04/18 23:30 Dose: 10 mg Furosemide (Lasix Injection -) 40 mg IVPUSH BIDLASIX [facility] Last Admin: 03/05/18 13:02 Dose: 40 mg Isosorbide Mononitrate (Imdur -) 30 mg PO DAILY [facility] Last Admin: 03/05/18 09:31 Dose: 30 mg Nadolol (Corgard -) 20 mg PO DAILY [facility] Last Admin: 03/05/18 10:22 Dose: 20 mg Ramipril (Altace -) 2.5 mg PO DAILY [facility] Last Admin: 03/05/18 09:31 Dose: 2.5 mg Spironolactone (Aldactone -) 25 mg PO DAILY [facility] Last Admin: 03/05/18 09:31 Dose: 25 mg - Objective Vital Signs: Vital Signs Temperature 98.0 F 03/05/18 14:00 Pulse Rate 53 L 03/05/18 14:00 Respiratory Rate 17 03/05/18 14:00 Blood Pressure 133/59 03/05/18 14:00 O2 Sat by Pulse Oximetry (%) 97 03/05/18 09:00 Constitutional: Yes: Anxious Eyes: Yes: WNL HENT: Yes: WNL Neck: Yes: WNL Cardiovascular: Yes: Pulse Irregular, S1 (varies in intensity), S2 Respiratory: Yes: Diminished Gastrointestinal: Yes: Soft, Distention ...Rectal Exam: Yes: Deferred Genitourinary: Yes: Anuria Musculoskeletal: Yes: Muscle Weakness Extremities: Yes: Cool Edema: Yes Edema: LLE: 1+, RLE: 1+ Peripheral Pulses WNL: Yes Integumentary: Yes: Venous Stasis Changes Neurological: Yes: Alert, Oriented, Weakness Psychiatric: Yes: Alert, Oriented Labs: CBC, BMP 03/05/18 09:25 03/05/18 07:00 Problem List - Problems (1) Anasarca Code(s): R60.1 - GENERALIZED EDEMA (2) Scrotal edema Assessment/Plan: improving; on diuretics. Code(s): N50.89 - OTHER SPECIFIED DISORDERS OF THE MALE GENITAL ORGANS (3) Shortness of breath Code(s): R06.02 - SHORTNESS OF BREATH (4) CAD (coronary artery disease) Assessment/Plan: s/p PCI ?2015 Code(s): I25.10 - ATHSCL HEART DISEASE OF [place] CORONARY ARTERY W/O ANG PCTRS Qualifiers: Coronary Disease-Associated Artery/Lesion type: [place] artery (5) Cirrhosis, alcoholic Code(s): K70.30 - ALCOHOLIC CIRRHOSIS OF LIVER WITHOUT ASCITES Qualifiers: Ascites presence: with ascites Qualified Code(s): K70.31 - Alcoholic cirrhosis of liver with ascites (6) HLD (hyperlipidemia) Assessment/Plan: on statin Code(s): E78.5 - HYPERLIPIDEMIA, UNSPECIFIED Qualifiers: Hyperlipidemia type: pure hypercholesterolemia Qualified Code(s): E78.00 - Pure hypercholesterolemia, unspecified; E78.0 - Pure hypercholesterolemia (7) Hypertension Assessment/Plan: on nadolol, ACEI, furosemide, sprionolactone. Code(s): I10 - ESSENTIAL (PRIMARY) HYPERTENSION Qualifiers: Hypertension type: essential hypertension Qualified Code(s): I10 - Essential (primary) hypertension (8) Pancytopenia Assessment/Plan: f/u with hematology Code(s): D61.818 - OTHER PANCYTOPENIA (9) Acute on chronic diastolic (congestive) heart failure Code(s): I50.33 - ACUTE ON CHRONIC DIASTOLIC (CONGESTIVE) HEART FAILURE
--- NOTE | 2018-03-05 21:50 | PN ---
Progress Note, Physician Chief Complaint: c/o acid reflux - Current Medication List Current Medications: Active Medications Atorvastatin Calcium (Lipitor -) 10 mg PO HS [facility] Last Admin: 03/04/18 23:30 Dose: 10 mg Furosemide (Lasix Injection -) 40 mg IVPUSH BIDLASIX [facility] Last Admin: 03/05/18 13:02 Dose: 40 mg Isosorbide Mononitrate (Imdur -) 30 mg PO DAILY [facility] Last Admin: 03/05/18 09:31 Dose: 30 mg Nadolol (Corgard -) 20 mg PO DAILY [facility] Last Admin: 03/05/18 10:22 Dose: 20 mg Ramipril (Altace -) 2.5 mg PO DAILY [facility] Last Admin: 03/05/18 09:31 Dose: 2.5 mg Spironolactone (Aldactone -) 25 mg PO DAILY [facility] Last Admin: 03/05/18 09:31 Dose: 25 mg - Objective Vital Signs: Vital Signs Temperature 98.0 F 03/05/18 14:00 Pulse Rate 53 L 03/05/18 14:00 Respiratory Rate 17 03/05/18 14:00 Blood Pressure 133/59 03/05/18 14:00 O2 Sat by Pulse Oximetry (%) 97 03/05/18 09:00 Constitutional: Yes: No Distress Neck: Yes: Supple Cardiovascular: Yes: Regular Rate and Rhythm, S1, S2 Respiratory: Yes: CTA Bilaterally Gastrointestinal: Yes: Normal Bowel Sounds, Soft. No: Tenderness Edema: Yes Neurological: Yes: Alert, Oriented. No: Loss of Sensation ...Motor Strength: WNL Labs: CBC, BMP 03/05/18 09:25 03/05/18 07:00 Problem List - Problems (1) Anasarca Assessment/Plan: Diuresis Code(s): R60.1 - GENERALIZED EDEMA (2) GERD (gastroesophageal reflux disease) Assessment/Plan: Protonix added Code(s): K21.9 - GASTRO-ESOPHAGEAL REFLUX DISEASE WITHOUT ESOPHAGITIS
[2018-03-05] MEDS: ATORVASTATIN CA 10 MG TABLET (FP) PO SCH (22:25)
[2018-03-05] MEDS: PANTOPRAZOLE 40 MG TABLET (FP) PO SCH (22:25)
[2018-03-06] MEDS: FUROSEMIDE 40 MG/4 ML INJECTABLE VIAL IVPUSH SCH ×2 (05:39→15:05)
[2018-03-06] MEDS ORDERED: PT OWN MED DRAWER 7, Y5N ONE (08:59)
[2018-03-06] MEDS: ISOSORBIDE MONONITRATE 30 MG TAB.SR.24H (FP) PO SCH (09:29)
[2018-03-06] MEDS: PANTOPRAZOLE 40 MG TABLET (FP) PO SCH (09:29)
[2018-03-06] MEDS: RAMIPRIL 2.5 MG CAPSULE (FP) PO SCH (09:29)
[2018-03-06] MEDS: NADOLOL 20 MG TABLET (FP) PO SCH (09:29)
[2018-03-06] MEDS: SPIRONOLACTONE 25 MG TABLET (FP) PO SCH (09:29)
--- NOTE | 2018-03-06 19:38 | PN ---
Progress Note, Physician History of Present Illness: No new complaints - Current Medication List Current Medications: Active Medications Atorvastatin Calcium (Lipitor -) 10 mg PO HS [facility] Last Admin: 03/05/18 22:25 Dose: 10 mg Furosemide (Lasix Injection -) 40 mg IVPUSH BIDLASIX [facility] Last Admin: 03/06/18 15:05 Dose: 40 mg Isosorbide Mononitrate (Imdur -) 30 mg PO DAILY [facility] Last Admin: 03/06/18 09:29 Dose: 30 mg Nadolol (Corgard -) 20 mg PO DAILY [facility] Last Admin: 03/06/18 09:29 Dose: 20 mg Pantoprazole Sodium (Protonix -) 40 mg PO DAILY [facility] Last Admin: 03/06/18 09:29 Dose: 40 mg Ramipril (Altace -) 2.5 mg PO DAILY [facility] Last Admin: 03/06/18 09:29 Dose: 2.5 mg Spironolactone (Aldactone -) 25 mg PO DAILY [facility] Last Admin: 03/06/18 09:29 Dose: 25 mg - Objective Vital Signs: Vital Signs Temperature 98.5 F 03/06/18 14:00 Pulse Rate 50 L 03/06/18 14:00 Respiratory Rate 17 03/06/18 14:00 Blood Pressure 118/62 03/06/18 14:00 O2 Sat by Pulse Oximetry (%) 96 03/06/18 09:27 Constitutional: Yes: No Distress Neck: Yes: Supple Cardiovascular: Yes: Regular Rate and Rhythm, S1, S2 Respiratory: Yes: CTA Bilaterally Gastrointestinal: Yes: Normal Bowel Sounds, Soft Edema: Yes Neurological: Yes: Alert, Oriented ...Motor Strength: WNL Labs: CBC, BMP 03/05/18 09:25 03/05/18 07:00 Problem List - Problems (1) Anasarca Assessment/Plan: Diuresis Code(s): R60.1 - GENERALIZED EDEMA (2) GERD (gastroesophageal reflux disease) Assessment/Plan: Protonix added Code(s): K21.9 - GASTRO-ESOPHAGEAL REFLUX DISEASE WITHOUT ESOPHAGITIS
[2018-03-06] MEDS: ATORVASTATIN CA 10 MG TABLET (FP) PO SCH (21:28)
[2018-03-07] MEDS: FUROSEMIDE 40 MG/4 ML INJECTABLE VIAL IVPUSH SCH ×2 (05:43→15:02)
--- NOTE | 2018-03-07 07:22 | PN ---
Progress Note, Physician Chief Complaint: Pt, with daughter at bedside, still has dyspnea on mild exertion; no chest pain. History of Present Illness: The patient is an 82 year old white male with a significant PMH of CAD (s/p PCI ) CHB s/p PM 1 month ago at [facility], diastolic CHF, [place], HTN, EtOH cirrhosis, anemia, hyperlipidemia, and prostate CA who presents to the emergency department with shortness of breath and intermittent leg and scrotal swelling beginning approximately 1 month ago. The patient reports he developed bilateral leg swelling about 3-4 days after his pacemaker was placed. He also reports scrotal swelling and significant weight gain which he believes is due to fluid buildup. The patient also notes chest congestion and lower abdominal distension recently. The patient states he was sent in by Dr. Mera for evaluation. As per old records, the patient had a duplex on 02/15/18 which was negative for DVT. - Current Medication List Current Medications: Active Medications Atorvastatin Calcium (Lipitor -) 10 mg PO HS [facility] Last Admin: 03/06/18 21:28 Dose: 10 mg Furosemide (Lasix Injection -) 40 mg IVPUSH BIDLASIX [facility] Last Admin: 03/07/18 05:43 Dose: 40 mg Isosorbide Mononitrate (Imdur -) 30 mg PO DAILY [facility] Last Admin: 03/06/18 09:29 Dose: 30 mg Nadolol (Corgard -) 20 mg PO DAILY [facility] Last Admin: 03/06/18 09:29 Dose: 20 mg Pantoprazole Sodium (Protonix -) 40 mg PO DAILY [facility] Last Admin: 03/06/18 09:29 Dose: 40 mg Ramipril (Altace -) 2.5 mg PO DAILY [facility] Last Admin: 03/06/18 09:29 Dose: 2.5 mg Spironolactone (Aldactone -) 25 mg PO DAILY [facility] Last Admin: 03/06/18 09:29 Dose: 25 mg - Objective Vital Signs: Vital Signs Temperature 98.7 F 03/07/18 06:00 Pulse Rate 54 L 03/07/18 06:00 Respiratory Rate 20 03/07/18 06:00 Blood Pressure 135/66 03/07/18 06:00 O2 Sat by Pulse Oximetry (%) 96 03/06/18 20:52 Constitutional: Yes: Anxious Eyes: Yes: WNL HENT: Yes: WNL Neck: Yes: WNL Cardiovascular: Yes: Pulse Irregular, S1, S2 Respiratory: Yes: Regular, Diminished, Other (clear to auscultation) Gastrointestinal: Yes: Ascites, Distention ...Rectal Exam: Yes: Deferred Genitourinary: Yes: Anuria Musculoskeletal: Yes: Muscle Weakness Extremities: Yes: Cool Edema: Yes Neurological: Yes: Alert, Weakness Psychiatric: Yes: Alert Labs: CBC, BMP 03/05/18 09:25 03/05/18 07:00 Problem List - Problems (1) Anasarca Code(s): R60.1 - GENERALIZED EDEMA (2) Scrotal edema Assessment/Plan: islowly improving; on diuretics. Code(s): N50.89 - OTHER SPECIFIED DISORDERS OF THE MALE GENITAL ORGANS (3) Shortness of breath Code(s): R06.02 - SHORTNESS OF BREATH (4) CAD (coronary artery disease) Assessment/Plan: s/p PCI ?2015 Code(s): I25.10 - ATHSCL HEART DISEASE OF [place] CORONARY ARTERY W/O ANG PCTRS Qualifiers: Coronary Disease-Associated Artery/Lesion type: [place] artery (5) Cirrhosis, alcoholic Code(s): K70.30 - ALCOHOLIC CIRRHOSIS OF LIVER WITHOUT ASCITES Qualifiers: Ascites presence: with ascites Qualified Code(s): K70.31 - Alcoholic cirrhosis of liver with ascites (6) HLD (hyperlipidemia) Assessment/Plan: on statin Code(s): E78.5 - HYPERLIPIDEMIA, UNSPECIFIED Qualifiers: Hyperlipidemia type: pure hypercholesterolemia Qualified Code(s): E78.00 - Pure hypercholesterolemia, unspecified; E78.0 - Pure hypercholesterolemia (7) Hypertension Assessment/Plan: on nadolol, ACEI, furosemide, sprionolactone. Code(s): I10 - ESSENTIAL (PRIMARY) HYPERTENSION Qualifiers: Hypertension type: essential hypertension Qualified Code(s): I10 - Essential (primary) hypertension (8) Pancytopenia Assessment/Plan: f/u with hematology Code(s): D61.818 - OTHER PANCYTOPENIA (9) Acute on chronic diastolic (congestive) heart failure Code(s): I50.33 - ACUTE ON CHRONIC DIASTOLIC (CONGESTIVE) HEART FAILURE (10) Atrial fibrillation Assessment/Plan: on nadalol for cirrhosis, HR control. anticoagulation precluded by pancytopenia. Code(s): I48.91 - UNSPECIFIED ATRIAL FIBRILLATION
--- NOTE | 2018-03-07 08:07 | PN ---
Progress Note (short form) - Note Progress Note: feeling little better lost 7 pounds so far Vital Signs Period Temp Pulse Resp BP Sys/Brothers Pulse Ox Last 24 Hr 98.1 F-98.7 F 50-97 17-20 118-144/62-88 96-96 S1S2 RRR lungs cta +JVD abd soft, +BS, non tender, pitting lower abd wall edema scrotal/penile edema resolved voiding light clear urine +++pedal edema IMP Anasarca Chr.Afib CAD HTN recent PPM placement alcoholic cirrhosis pancytopenia iron def. anemia Plan check lytes today daily weights cont iv diuresis low O2sat on ra-prn O2, will reevaluate prior to dc PT eval Problem List - Problems (1) Anasarca Code(s): R60.1 - GENERALIZED EDEMA (2) Shortness of breath Code(s): R06.02 - SHORTNESS OF BREATH (3) CAD (coronary artery disease) Code(s): I25.10 - ATHSCL HEART DISEASE OF [place] CORONARY ARTERY W/O ANG PCTRS Qualifiers: Coronary Disease-Associated Artery/Lesion type: [place] artery (4) Thrombocytopenia Code(s): D69.6 - THROMBOCYTOPENIA, UNSPECIFIED (5) Pancytopenia Code(s): D61.818 - OTHER PANCYTOPENIA (6) Anemia, iron deficiency Code(s): D50.9 - IRON DEFICIENCY ANEMIA, UNSPECIFIED Qualifiers: Iron deficiency anemia type: other iron deficiency Qualified Code(s): D50.8 - Other iron deficiency anemias (7) Cirrhosis, alcoholic Code(s): K70.30 - ALCOHOLIC CIRRHOSIS OF LIVER WITHOUT ASCITES Qualifiers: Ascites presence: with ascites Qualified Code(s): K70.31 - Alcoholic cirrhosis of liver with ascites (8) 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
[2018-03-07 09:21] LABS: EOS % 5.6 % (0-4.5); HEMATOCRIT 28.1 % (35.4-49); HEMOGLOBIN 9.1 GM/dL (11.7-16.9); LYMPH % 16.5 % (8-40); MCH 28.3 pg (25.7-33.7); MCHC 32.2 g/dl (32.0-35.9); MEAN CELL VOLUME 87.9 fl (80-96); MEAN PLT VOLUME 9.2 fl (7.5-11.1); MONO % 14.5 % (3.8-10.2); NEUT % 62.4 % (42.8-82.8); PLATELET COUNT 64 K/MM3 (134-434); RDW 18.6 % (11.9-15.9); WHITE BLOOD COUNT 2.9 K/mm3 (4.0-10.0)
[2018-03-07 09:43] LABS: ALBUMIN 3.5 g/dl (3.4-5.0); ANION GAP 4 (8-16); BILIRUBIN,TOTAL 1.3 mg/dL (0.2-1.0); BLOOD UREA NITROGEN 43 mg/dL (7-18); CALCIUM 8.5 mg/dL (8.5-10.1); CHLORIDE 105 mmol/L (98-107); CO2 29 mmol/L (21-32); CREATININE 1.4 mg/dL (0.7-1.3); GLUCOSE,RANDOM 120 mg/dL (74-106); POTASSIUM 4.1 mmol/L (3.5-5.1); SGOT/AST 38 U/L (15-37); SGPT/ALT 23 U/L (12-78); SODIUM 138 mmol/L (136-145); TOT PROT 7.6 g/dl (6.4-8.2)
[2018-03-07 09:44] LABS: ALK PHOS 112 U/L (45-117)
[2018-03-07] MEDS ORDERED: PT OWN MED DRAWER 7, Y5N ONE ×2 (10:10→21:17)
[2018-03-07] MEDS: SPIRONOLACTONE 25 MG TABLET (FP) PO SCH (10:17)
[2018-03-07] MEDS: PANTOPRAZOLE 40 MG TABLET (FP) PO SCH (10:17)
[2018-03-07] MEDS: ISOSORBIDE MONONITRATE 30 MG TAB.SR.24H (FP) PO SCH (10:17)
[2018-03-07] MEDS: NADOLOL 20 MG TABLET (FP) PO SCH (10:17)
[2018-03-07] MEDS: RAMIPRIL 2.5 MG CAPSULE (FP) PO SCH (10:17)
[2018-03-07] MEDS: ATORVASTATIN CA 10 MG TABLET (FP) PO SCH (21:21)
--- NOTE | 2018-03-08 00:40 | EKG ---
Test Reason : Blood Pressure : / mmHG Vent. Rate : 082 BPM Atrial Rate : 082 BPM P-R Int : 000 ms QRS Dur : 172 ms QT Int : 446 ms P-R-T Axes : 000 -79 088 degrees QTc Int : 521 ms Ventricular-paced rhythm ABNORMAL ECG WHEN COMPARED WITH ECG OF 25-JAN-2018 09:02, ELECTRONIC VENTRICULAR PACEMAKER HAS REPLACED ATRIAL FIBRILLATION VENT. RATE HAS INCREASED BY 40 BPM Confirmed by ALVARO NUNEZ MD ([id number]) on 03/08/2018 12:40:02 AM Referred By: Confirmed By:ALVARO NUNEZ MD
[2018-03-08] MEDS: FUROSEMIDE 40 MG/4 ML INJECTABLE VIAL IVPUSH SCH ×2 (05:24→14:09)
--- NOTE | 2018-03-08 08:18 | PN ---
Progress Note (short form) - Note Progress Note: CBC, BMP 03/07/18 08:50 03/07/18 08:50 Vital Signs Period Temp Pulse Resp BP Sys/Brothers Pulse Ox Last 24 Hr 97.7 F-98.2 F 50-80 18-21 129-143/56-68 98 S1S2 RRR lungs cta +JVD abd soft, +BS, non tender, pitting lower abd wall edema scrotal/penile edema resolved voiding light clear urine +++pedal edema IMP Anasarca Chr.Afib CAD HTN recent PPM placement alcoholic cirrhosis pancytopenia iron def. anemia Plan check lytes tomorrow daily weights cont iv diuresis low O2sat on ra-prn O2, will reevaluate prior to dc PT eval Problem List - Problems (1) Anasarca Code(s): R60.1 - GENERALIZED EDEMA (2) Shortness of breath Code(s): R06.02 - SHORTNESS OF BREATH (3) CAD (coronary artery disease) Code(s): I25.10 - ATHSCL HEART DISEASE OF [place] CORONARY ARTERY W/O ANG PCTRS Qualifiers: Coronary Disease-Associated Artery/Lesion type: [place] artery (4) Thrombocytopenia Code(s): D69.6 - THROMBOCYTOPENIA, UNSPECIFIED (5) Pancytopenia Code(s): D61.818 - OTHER PANCYTOPENIA (6) Anemia, iron deficiency Code(s): D50.9 - IRON DEFICIENCY ANEMIA, UNSPECIFIED Qualifiers: Iron deficiency anemia type: other iron deficiency Qualified Code(s): D50.8 - Other iron deficiency anemias (7) Cirrhosis, alcoholic Code(s): K70.30 - ALCOHOLIC CIRRHOSIS OF LIVER WITHOUT ASCITES Qualifiers: Ascites presence: with ascites Qualified Code(s): K70.31 - Alcoholic cirrhosis of liver with ascites (8) 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
--- NOTE | 2018-03-08 09:04 | PN ---
Progress Note, Physician Chief Complaint: Feels better - Current Medication List Current Medications: Active Medications Atorvastatin Calcium (Lipitor -) 10 mg PO HS [facility] Last Admin: 03/07/18 21:21 Dose: 10 mg Furosemide (Lasix Injection -) 40 mg IVPUSH BIDLASIX [facility] Last Admin: 03/08/18 05:24 Dose: 40 mg Isosorbide Mononitrate (Imdur -) 30 mg PO DAILY [facility] Last Admin: 03/07/18 10:17 Dose: 30 mg Nadolol (Corgard -) 20 mg PO DAILY [facility] Last Admin: 03/07/18 10:17 Dose: 20 mg Pantoprazole Sodium (Protonix -) 40 mg PO DAILY [facility] Last Admin: 03/07/18 10:17 Dose: 40 mg Ramipril (Altace -) 2.5 mg PO DAILY [facility] Last Admin: 03/07/18 10:17 Dose: 2.5 mg Spironolactone (Aldactone -) 25 mg PO DAILY [facility] Last Admin: 03/07/18 10:17 Dose: 25 mg - Objective Vital Signs: Vital Signs Temperature 98.2 F 03/08/18 06:00 Pulse Rate 52 L 03/08/18 06:00 Respiratory Rate 18 03/08/18 06:00 Blood Pressure 129/62 03/08/18 06:00 O2 Sat by Pulse Oximetry (%) 98 03/07/18 21:00 Constitutional: Yes: No Distress Cardiovascular: Yes: Regular Rate and Rhythm Respiratory: Yes: CTA Bilaterally Gastrointestinal: Yes: Other (mildly distended) Edema: Yes Edema: LLE: 1+, RLE: 1+ Neurological: Yes: Alert, Oriented Labs: CBC, BMP 03/07/18 08:50 03/07/18 08:50 Laboratory Tests 03/07/18 03/07/18 08:50 08:50 WBC 2.9 L Hgb 9.1 L Plt Count 64 L Sodium 138 Potassium 4.1 BUN 43 H Creatinine 1.4 H D - ....Imaging Ultrasound: Report Reviewed Assessment/Plan IMP: Cirrhosis Moderate AR AF s/p PPM (leadless) Acute on chronic diastolic/valvular CHF REC: Continue IV Lasix one more day, then decrease to daily. PO . Slight bump in BUN/creat, will follow. We may need to tolerate some elevation in creatinine to achieve euvolemic state.
[2018-03-08] MEDS: SPIRONOLACTONE 25 MG TABLET (FP) PO SCH (11:16)
[2018-03-08] MEDS: ISOSORBIDE MONONITRATE 30 MG TAB.SR.24H (FP) PO SCH (11:16)
[2018-03-08] MEDS: NADOLOL 20 MG TABLET (FP) PO SCH (11:16)
[2018-03-08] MEDS: RAMIPRIL 2.5 MG CAPSULE (FP) PO SCH (11:16)
[2018-03-08] MEDS: PANTOPRAZOLE 40 MG TABLET (FP) PO SCH (11:16)
[2018-03-08 11:25] LABS: URINE APPEARANCE CLEAR; URINE BILIRUBIN NEGATIVE (<2.0 mg/dL); URINE COLOR STRAW; URINE GLUCOSE (UA) NEGATIVE (NEGATIVE); URINE KETONE NEGATIVE (NEGATIVE); URINE LEUK ESTERASE NEGATIVE (NEGATIVE); URINE NITRITE NEGATIVE (NEGATIVE); URINE PROTEIN NEGATIVE (NEGATIVE); URINE UROBILINOGEN NEGATIVE mg/dL (0.2-1.0)
[2018-03-08 11:32] LABS: EPI CELLS RARE /HPF (FEW); URINE HYALINE CAST 1 /lpf; URINE MUCUS RARE
[2018-03-08 12:26] LABS: URINE CREATININE 19.7 mg/dL (20-370)
[2018-03-08] MEDS: BACITRACIN 15 GM TUBE TOPICAL OINTMENT TP SCH ×3 (17:50→21:27)
[2018-03-08] MEDS: ATORVASTATIN CA 10 MG TABLET (FP) PO SCH (21:25)
[2018-03-08] MEDS ORDERED: ACETAMINOPHEN 325 MG TABLET (FP) PO PRN (22:08)
[2018-03-09] MEDS: FUROSEMIDE 40 MG/4 ML INJECTABLE VIAL IVPUSH SCH ×2 (06:37→14:02)
[2018-03-09 07:57] LABS: BASO % 1.1 % (0-2.0); EOS % 5.5 % (0-4.5); HEMATOCRIT 25.8 % (35.4-49); HEMOGLOBIN 8.3 GM/dL (11.7-16.9); LYMPH % 20.8 % (8-40); MCH 27.9 pg (25.7-33.7); MCHC 32.1 g/dl (32.0-35.9); MEAN PLT VOLUME 9.8 fl (7.5-11.1); MONO % 19.6 % (3.8-10.2); PLATELET COUNT 74 K/MM3 (134-434); RBC 2.97 M/mm3 (4.00-5.60); RDW 17.9 % (11.9-15.9); WHITE BLOOD COUNT 2.3 K/mm3 (4.0-10.0)
[2018-03-09 08:21] LABS: CHLORIDE 105 mmol/L (98-107); POTASSIUM 3.7 mmol/L (3.5-5.1); SODIUM 141 mmol/L (136-145)
[2018-03-09 08:49] LABS: ALK PHOS 103 U/L (45-117); ANION GAP 8 (8-16); BLOOD UREA NITROGEN 38 mg/dL (7-18); CO2 28 mmol/L (21-32); CREATININE 1.1 mg/dL (0.7-1.3); GLUCOSE,RANDOM 127 mg/dL (74-106); SGOT/AST 30 U/L (15-37); SGPT/ALT 19 U/L (12-78); TOT PROT 6.9 g/dl (6.4-8.2)
[2018-03-09] MEDS: NADOLOL 20 MG TABLET (FP) PO SCH (09:13)
[2018-03-09] MEDS: ISOSORBIDE MONONITRATE 30 MG TAB.SR.24H (FP) PO SCH (09:13)
[2018-03-09] MEDS: RAMIPRIL 2.5 MG CAPSULE (FP) PO SCH (09:13)
[2018-03-09] MEDS: SPIRONOLACTONE 25 MG TABLET (FP) PO SCH (09:13)
[2018-03-09] MEDS: BACITRACIN 15 GM TUBE TOPICAL OINTMENT TP SCH ×2 (09:13→21:07)
[2018-03-09] MEDS: PANTOPRAZOLE 40 MG TABLET (FP) PO SCH (09:13)
--- NOTE | 2018-03-09 10:59 | PN ---
Progress Note (short form) - Note Progress Note: CBC, BMP 03/09/18 07:25 03/09/18 07:25 Vital Signs Period Temp Pulse Resp BP Sys/Brothers Pulse Ox Last 24 Hr 98.3 F-98.7 F 51-63 20-20 121-128/52-65 96 S1S2 RRR lungs cta less JVD abd soft, +BS, non tender, pitting lower abd wall edema scrotal/penile edema resolved voiding light clear urine +++pedal edema IMP Anasarca Chr.Afib CAD HTN recent PPM placement alcoholic cirrhosis pancytopenia iron def. anemia Plan lost 15 pounds already daily weights cont iv diuresis PT eval Problem List - Problems (1) Anasarca Code(s): R60.1 - GENERALIZED EDEMA (2) Shortness of breath Code(s): R06.02 - SHORTNESS OF BREATH (3) CAD (coronary artery disease) Code(s): I25.10 - ATHSCL HEART DISEASE OF [place] CORONARY ARTERY W/O ANG PCTRS Qualifiers: Coronary Disease-Associated Artery/Lesion type: [place] artery (4) Thrombocytopenia Code(s): D69.6 - THROMBOCYTOPENIA, UNSPECIFIED (5) Pancytopenia Code(s): D61.818 - OTHER PANCYTOPENIA (6) Anemia, iron deficiency Code(s): D50.9 - IRON DEFICIENCY ANEMIA, UNSPECIFIED Qualifiers: Iron deficiency anemia type: other iron deficiency Qualified Code(s): D50.8 - Other iron deficiency anemias (7) Cirrhosis, alcoholic Code(s): K70.30 - ALCOHOLIC CIRRHOSIS OF LIVER WITHOUT ASCITES Qualifiers: Ascites presence: with ascites Qualified Code(s): K70.31 - Alcoholic cirrhosis of liver with ascites (8) 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
[2018-03-09] MEDS: ATORVASTATIN CA 10 MG TABLET (FP) PO SCH (21:07)
[2018-03-10] MEDS: FUROSEMIDE 40 MG/4 ML INJECTABLE VIAL IVPUSH SCH (05:48)
--- NOTE | 2018-03-10 08:43 | PN ---
Progress Note (short form) - Note Progress Note: CBC, BMP 03/09/18 07:25 03/09/18 07:25 Vital Signs Period Temp Pulse Resp BP Sys/Brothers Pulse Ox Last 24 Hr 98 F-98.6 F 51-58 18-20 126-136/60-67 95-96 200lbs plateaued S1S2 RRR lungs cta less JVD abd soft, +BS, non tender, pitting lower abd wall edema scrotal/penile edema resolved voiding light clear urine +++pedal edema IMP Anasarca Chr.Afib CAD HTN recent PPM placement alcoholic cirrhosis pancytopenia iron def. anemia Plan lost 15 pounds stable to switch to oral diuretics and f/up as outpt in office Problem List - Problems (1) Anasarca Code(s): R60.1 - GENERALIZED EDEMA (2) Shortness of breath Code(s): R06.02 - SHORTNESS OF BREATH (3) CAD (coronary artery disease) Code(s): I25.10 - ATHSCL HEART DISEASE OF [place] CORONARY ARTERY W/O ANG PCTRS Qualifiers: Coronary Disease-Associated Artery/Lesion type: [place] artery (4) Thrombocytopenia Code(s): D69.6 - THROMBOCYTOPENIA, UNSPECIFIED (5) Pancytopenia Code(s): D61.818 - OTHER PANCYTOPENIA (6) Anemia, iron deficiency Code(s): D50.9 - IRON DEFICIENCY ANEMIA, UNSPECIFIED Qualifiers: Iron deficiency anemia type: other iron deficiency Qualified Code(s): D50.8 - Other iron deficiency anemias (7) Cirrhosis, alcoholic Code(s): K70.30 - ALCOHOLIC CIRRHOSIS OF LIVER WITHOUT ASCITES Qualifiers: Ascites presence: with ascites Qualified Code(s): K70.31 - Alcoholic cirrhosis of liver with ascites (8) 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
--- NOTE | 2018-03-10 09:32 | PN ---
Progress Note, Physician Chief Complaint: wants to go home - Current Medication List Current Medications: Active Medications Acetaminophen (Tylenol -) 650 mg PO Q6H PRN PRN Reason: PAIN LEVEL 5-10 Last Admin: 03/09/18 04:00 Dose: 650 mg Atorvastatin Calcium (Lipitor -) 10 mg PO HS [facility] Last Admin: 03/09/18 21:07 Dose: 10 mg Bacitracin (Bacitracin -) 1 applic TP BID [facility] Last Admin: 03/09/18 21:07 Dose: 1 applic Furosemide (Lasix Injection -) 40 mg IVPUSH BIDLASIX [facility] Last Admin: 03/10/18 05:48 Dose: 40 mg Isosorbide Mononitrate (Imdur -) 30 mg PO DAILY [facility] Last Admin: 03/09/18 09:13 Dose: 30 mg Nadolol (Corgard -) 20 mg PO DAILY [facility] Last Admin: 03/09/18 09:13 Dose: 20 mg Pantoprazole Sodium (Protonix -) 40 mg PO DAILY [facility] Last Admin: 03/09/18 09:13 Dose: 40 mg Ramipril (Altace -) 2.5 mg PO DAILY [facility] Last Admin: 03/09/18 09:13 Dose: 2.5 mg Spironolactone (Aldactone -) 25 mg PO DAILY [facility] Last Admin: 03/09/18 09:13 Dose: 25 mg - Objective Vital Signs: Vital Signs Temperature 98.4 F 03/10/18 06:00 Pulse Rate 52 L 03/10/18 06:00 Respiratory Rate 20 03/10/18 06:00 Blood Pressure 128/61 03/10/18 06:00 O2 Sat by Pulse Oximetry (%) 96 03/09/18 21:00 Constitutional: Yes: No Distress Cardiovascular: Yes: Regular Rate and Rhythm Respiratory: Yes: CTA Bilaterally Gastrointestinal: Yes: Soft, Abdomen, Obese Edema: Yes Edema: LLE: 2+, RLE: 2+ Labs: CBC, BMP 03/09/18 07:25 03/09/18 07:25 Assessment/Plan IMP: Cirrhosis Moderate AR AF s/p PPM (leadless) 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 Outpatient f/u in 1 week.
[2018-03-10] MEDS ORDERED: PT OWN MED DRAWER 7, Y5N ONE (10:49)
[2018-03-10] MEDS: NADOLOL 20 MG TABLET (FP) PO SCH (10:51)
[2018-03-10] MEDS: SPIRONOLACTONE 25 MG TABLET (FP) PO SCH (10:51)
[2018-03-10] MEDS: RAMIPRIL 2.5 MG CAPSULE (FP) PO SCH (10:52)
[2018-03-10] MEDS: ISOSORBIDE MONONITRATE 30 MG TAB.SR.24H (FP) PO SCH (10:52)
[2018-03-10] MEDS: PANTOPRAZOLE 40 MG TABLET (FP) PO SCH (10:52)
[2018-03-10 12:02] VITALS: BP 147/54; PULSE 56; TEMP 99.1
--- NOTE | 2018-03-11 08:19 | DS ---
Physical Examination Vital Signs: Vital Signs Temperature 99.1 F 03/10/18 09:00 Pulse Rate 56 L 03/10/18 09:00 Respiratory Rate 20 03/10/18 09:00 Blood Pressure 147/54 03/10/18 09:00 O2 Sat by Pulse Oximetry (%) 96 03/09/18 21:00 Constitutional: Yes: No Distress, Calm Eyes: Yes: EOM Intact Neck: Yes: Trachea Midline Cardiovascular: Yes: Regular Rate and Rhythm Respiratory: Yes: CTA Bilaterally Gastrointestinal: Yes: Normal Bowel Sounds, Soft Musculoskeletal: Yes: WNL Extremities: Yes: WNL Edema: Yes Edema: LLE: 2+, RLE: 2+ Labs: CBC, BMP 03/09/18 07:25 03/09/18 07:25 Discharge Summary Reason For Visit: SHORTNES OF BREATH,SCROTAL EDEMA,PERIPHERAL EDEMA Hospital Course: admitted for anasarca and fluid overload. lost 215 pounds with iv diuresis in hospital with improvement in his edema. bnp was unremarkable and ab us did not show large ascites. medially stable to ar home on oral diuretics and close outpt follow up. Condition: Fair - Instructions Diet, Activity, Other Instructions: low salt diet f/up on wednesday at 1pm Disposition: VNS/HOME HEALTH CARE - Home Medications Comprehensive Discharge Medication List: Ambulatory Orders Isosorbide Mononitrate [Isosorbide Mononitrate ER] 30 mg PO DAILY 03/04/18 Nadolol 20 mg PO DAILY 03/04/18 Ramipril 2.5 mg PO DAILY 03/04/18 Simvastatin 20 mg PO DAILY 03/04/18 Spironolactone 25 mg PO DAILY 03/04/18 Bacitracin - [Bacitracin Topical Ointment -] 1 applic TP BID #30 grams 03/10/18 Furosemide [Lasix] 40 mg PO DAILY #30 tablet 03/10/18
== END 2018-03-10 13:53 | disposition home health service (06) | DRG 292 ==
LOC: JER 15:06 → JERBED 21:04 → J6S 03-05 00:38
PROVIDERS: ADMIT Internal Medicine; ATTEND Internal Medicine
DX: I11.0 Hypertensive heart disease with heart failure (principal); D61.818 Other pancytopenia; I50.33 Acute on chronic diastolic (congestive) heart failure; I86.4 Gastric varices; K70.31 Alcoholic cirrhosis of liver with ascites; I25.10 Atherosclerotic heart disease of native coronary artery without angina pectoris; D50.9 Iron deficiency anemia, unspecified; I25.2 Old myocardial infarction; I35.1 Nonrheumatic aortic (valve) insufficiency; D69.6 Thrombocytopenia, unspecified; I48.0 Paroxysmal atrial fibrillation; E78.5 Hyperlipidemia, unspecified; Z85.46 Personal history of malignant neoplasm of prostate; Z95.0 Presence of cardiac pacemaker; Z87.891 Personal history of nicotine dependence; Z96.642 Presence of left artificial hip joint; E66.9 Obesity, unspecified; Z68.32 Body mass index [BMI] 32.0-32.9, adult; E87.70 Fluid overload, unspecified
CPT/HCPCS: 36415; 71045-TC-FY; 76700-TC; 80053; 81003; 81015; 82570; 83880; 84156; 84484; 85025; 87086; 87186; 93005; 93010; 93970-TC; 97116-GP; 97161-GP; 99285-25

== ENCOUNTER 2018-04-20 21:42 | Observation (INO) | payer OTHER ==
--- NOTE | 2018-04-20 21:52 | PDOC ---
History of Present Illness - General Chief Complaint: Pain Stated Complaint: Leg/Foot swelling/pain History Source: Patient - History of Present Illness Initial Comments: 04/20/18 23:49 82 year old male with Complaining of left hip pain and left knee pain for the past several days. Patient reports occasional shortness of breath and epigastric "dryness" for 2 days. Patient reports that the hip and knee pain has been more severe over the last day.Denies chest pain, diaphoresis, nausea, vomiting, abdominal pain, urinary symptoms Orthopedic Dr. El PMD Dr. castaneda Past History - Past Medical History Allergies/Adverse Reactions: Allergies Allergy/AdvReac Type Severity Reaction Status Date / Time cephalexin Allergy Verified 04/20/18 21:53 Home Medications: Ambulatory Orders Isosorbide Mononitrate [Isosorbide Mononitrate ER] 30 mg PO DAILY 03/04/18 Nadolol 20 mg PO DAILY 03/04/18 Ramipril 2.5 mg PO DAILY 03/04/18 Simvastatin 20 mg PO DAILY 03/04/18 Spironolactone 25 mg PO DAILY 03/04/18 Bacitracin - [Bacitracin Topical Ointment -] 1 applic TP BID #30 grams 03/10/18 Furosemide [Lasix] 40 mg PO DAILY #30 tablet 03/10/18 Anemia: No Asthma: No Cancer: Yes (PROSTATE) Cardiac Disorders: Yes (ASHD S/P [place] FOLLOWING HIP SX) CVA: No COPD: No CHF: No Dementia: No Diabetes: No GI Disorders: Yes (COLON POLYPS-) Disorders: No HTN: Yes Hypercholesterolemia: Yes Liver Disease: No Seizures: No Thyroid Disease: No - Surgical History Abdominal Surgery: No Appendectomy: No Cardiac Surgery: No Cholecystectomy: No Lung Surgery: No Neurologic Surgery: No Orthopedic Surgery: Yes (LEFT HIP REPLACEMENT, LEFT KNEE ARTHROSCOPY) - Immunization History Immunization Up to Date: Yes - Suicide/Smoking/Psychosocial Hx Smoking Status: Yes Smoking History: Unknown if ever smoked Have you smoked in the past 12 months: No Number of Cigarettes Smoked Daily: 0 If you are a former smoker, when did you quit?: many years Cigars Per Day: 0 Hx Alcohol Use: Yes (GLASS OF WINE DAILY) Drug/Substance Use Hx: No Substance Use Type: None Hx Substance Use Treatment: No Review of Systems - Review of Systems Able to Perform ROS?: Yes Is the patient limited Hungarian proficient: No Endocrine: Yes: Unexplained Weight Gain Heart Score/ECG Review - History History: Slightly suspicious - Electrocardiogram EKG: Normal (juan you) - Age Age: >/= 65 - Risk Factors Risk Factors Heart Score: Yes Hx Hypercholesterolemia, Yes Hx Hypertension, Yes Hx Obesity Based on the list above the patient has:: 1-2 risk factors - Troponin Troponin: 1-3x normal limit (.) - Score Heart Score - Total: 4 - ECG Intrepretation Rhythm: Regular Rhythm Comment:: 04/20/18 23:51 Vent rate : 61 bpm ventricular - paced rhythm ED Treatment Course - LABORATORY CBC & Chemistry Diagram: 04/20/18 22:30 04/20/18 22:30 Medical Decision Making - Medical Decision Making 04/20/18 23:55 A: peripheral edema; hip pain P: cbc cmp bnp US: negative for DVT + bakers cyst Hip Xray 04/20/18 23:57 Patient signed out to Dr. Minaya. Patient to be admitted *DC/Admit/Observation/Transfer Diagnosis at time of Disposition: CHERIE (acute kidney injury), Acute on chronic diastolic (congestive) heart failure, Hip pain, left Dyspnea Qualifiers: Dyspnea type: dyspnea on exertion Qualified Code(s): R06.09 - Other forms of dyspnea - Discharge Dispostion Condition at time of disposition: Fair Decision to Admit order: Yes - Referrals Referrals: Luna Mera MD [Primary Care Provider] - - Patient Instructions - Post Discharge Activity
[2018-04-20 21:56] VITALS: BMI 32.1
[2018-04-20] MEDS ORDERED: ACETAMINOPHEN 325 MG TABLET (FP) PO ONE (22:22)
[2018-04-20] MEDS ORDERED: KETOROLAC TROMETHAMINE 15 MG/ML VIAL IM ONE (22:22)
[2018-04-20] MEDS ORDERED: KETOROLAC TROMETHAMINE 15 MG/ML VIAL ONE (22:28)
[2018-04-20] MEDS ORDERED: ACETAMINOPHEN 325 MG TABLET (FP) ONE (22:28)
[2018-04-20 22:45] LABS: BASO % 0.1 % (0-2.0); HEMATOCRIT 25.5 % (35.4-49); HEMOGLOBIN 8.1 GM/dL (11.7-16.9); LYMPH % 3.1 % (8-40); MCH 27.4 pg (25.7-33.7); MCHC 31.9 g/dl (32.0-35.9); MEAN PLT VOLUME 8.9 fl (7.5-11.1); MONO % 9.1 % (3.8-10.2); NEUT % 87.7 % (42.8-82.8); PLATELET COUNT 89 K/MM3 (134-434); RBC 2.97 M/mm3 (4.00-5.60); RDW 17.4 % (11.9-15.9); WHITE BLOOD COUNT 8.5 K/mm3 (4.0-10.0)
[2018-04-20 22:57] LABS: INR 1.49 (0.82-1.09); PROTHROMBIN TIME (PATIENT) 16.8 SEC (9.7-13.0)
[2018-04-20 23:01] LABS: ALBUMIN 2.9 g/dl (3.4-5.0); ANION GAP 9 (8-16); BILIRUBIN,TOTAL 0.8 mg/dL (0.2-1.0); BLOOD UREA NITROGEN 77 mg/dL (7-18); CALCIUM 8.2 mg/dL (8.5-10.1); CHLORIDE 110 mmol/L (98-107); CO2 22 mmol/L (21-32); CREATININE 2.3 mg/dL (0.7-1.3); GLUCOSE,RANDOM 157 mg/dL (74-106); MAGNESIUM 2.9 mg/dL (1.8-2.4); SGOT/AST 35 U/L (15-37); SGPT/ALT 34 U/L (12-78); SODIUM 141 mmol/L (136-145); TOT PROT 6.6 g/dl (6.4-8.2)
[2018-04-20 23:03] LABS: ALK PHOS 130 U/L (45-117)
[2018-04-20] MEDS ORDERED: FUROSEMIDE 40 MG/4 ML INJECTABLE VIAL IVPUSH ONE (23:41)
[2018-04-21] MEDS ORDERED: FUROSEMIDE 40 MG/4 ML INJECTABLE VIAL ONE (03:23)
[2018-04-21] MEDS: FUROSEMIDE 40 MG/4 ML INJECTABLE VIAL IVPUSH SCH ×2 (06:34→13:31)
[2018-04-21 07:06] LABS: EOS % 0.2 % (0-4.5); HEMATOCRIT 24.9 % (35.4-49); HEMOGLOBIN 8.1 GM/dL (11.7-16.9); LYMPH % 2.2 % (8-40); MCH 27.8 pg (25.7-33.7); MCHC 32.4 g/dl (32.0-35.9); MEAN CELL VOLUME 85.8 fl (80-96); MEAN PLT VOLUME 8.9 fl (7.5-11.1); MONO % 8.8 % (3.8-10.2); NEUT % 88.8 % (42.8-82.8); PLATELET COUNT 75 K/MM3 (134-434); RDW 16.8 % (11.9-15.9); WHITE BLOOD COUNT 8.3 K/mm3 (4.0-10.0)
[2018-04-21 07:41] LABS: ALBUMIN 2.8 g/dl (3.4-5.0); ANION GAP 9 (8-16); BILIRUBIN,TOTAL 0.9 mg/dL (0.2-1.0); BLOOD UREA NITROGEN 80 mg/dL (7-18); CALCIUM 8.3 mg/dL (8.5-10.1); CHLORIDE 108 mmol/L (98-107); CO2 23 mmol/L (21-32); CREATININE 2.2 mg/dL (0.7-1.3); GLUCOSE,RANDOM 128 mg/dL (74-106); POTASSIUM 4.8 mmol/L (3.5-5.1); SGOT/AST 33 U/L (15-37); SGPT/ALT 35 U/L (12-78); SODIUM 140 mmol/L (136-145); TOT PROT 6.7 g/dl (6.4-8.2)
[2018-04-21 07:44] LABS: ALK PHOS 114 U/L (45-117)
--- NOTE | 2018-04-21 07:59 | HP ---
Admitting History and Physical - Primary Care Physician PCP: Luna Mera - Admission Chief Complaint: left hip pain, edema History of Present Illness: came to er due top severe left hip and knee pains, saw ortho for joint pains 4 days ago, received steroid injection to knee and supposed to f/up next week also was treated as outpt for edema, mild chf, renal function has been fluctuating form 1.5 to 2.6 as outpt depending on diuretic dose-most recently has been on spironolactone 25 qd and torsemide 10 mg qd. has been getting iv iron as outpt for chr iron def.anemia. 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), Other (EGD :mid-esophageal varix, angiodysplastic lesion in entire stomach, duodenal inflammation.EGD 03.03: portal HTN, gastric varices, Colonoscopy :3 polyps were removed, small angiodysplastic lesion at cecum , internal hemorrhoids.) Hepatobiliary: Yes: Cirrhosis (Alcoholic cirrhosis) Renal/: Yes: Cancer (h/o prostate ca treated with RT), Other (prostate cancer treated with RT) Heme/Onc: No: Anemia, B12 Deficiency, Bleeding Disorder, Cancer, Current Chemotherapy, Current Radiation Therapy, Hemochromatosis, Hypercoaguable State, Myeloproliferative Synd, Sickle Cell Disease, Sickle Cell Trait, Thrombocytopenia, Other Musculoskeletal: Yes: Osteoarthritis Endocrine: Yes: Diabetes Mellitus - Past Surgical History Past Surgical History: Yes: Amputation (accidental distal left hand 2nd digit), Arthrosocopy (left knee), Colonoscopy, Joint Replacement (L THR 2012 with subsequent removal of hardware), Permanent Pacemaker (leadless placed in ) , Upper Endoscopy - Smoking History Smoking history: Never smoked Have you smoked in the past 12 months: No Aproximately how many cigarettes per day: 0 If you are a former smoker, when did you quit?: many years - Alcohol/Substance Use Hx Alcohol Use: No Date of Last Use: 02/24/17 - Social History Usual Living Arrangement: Yes: Alone ADL: Independent 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 History of Recent Travel: No Home Medications - Allergies Allergies/Adverse Reactions: Allergies Allergy/AdvReac Type Severity Reaction Status Date / Time cephalexin Allergy Verified 04/20/18 21:53 - Home Medications Home Medications: Ambulatory Orders Isosorbide Mononitrate [Isosorbide Mononitrate ER] 30 mg PO DAILY 03/04/18 Nadolol 20 mg PO DAILY 03/04/18 Simvastatin 20 mg PO DAILY 03/04/18 Spironolactone 25 mg PO DAILY 03/04/18 Torsemide [Demadex] 20 mg PO BID 04/21/18 Family Disease History - Family Disease History Family Disease History: Diabetes: Mother ( 98 pancreatic cancer), CA: Mother , Brother (colon cancer,prostate cancer, alcoholic cirrhosis), Respiratory: Father ( age 54 pneumonia) Review of Systems - Review of Systems Constitutional: reports: Weakness Eyes: reports: No Symptoms HENT: reports: No Symptoms Respiratory: reports: Exercise Intolerance, SOB on Exertion. denies: Cough, Hemoptysis, Snoring, Wheezing Gastrointestinal: reports: Bloating, Constipation. denies: Melena, Nausea, Rectal Bleeding Musculoskeletal: reports: Joint Pain, Joint Swelling Neurological: reports: No Symptoms Physical Examination Vital Signs: Vital Signs Temperature 97.3 F L 04/21/18 06:00 Pulse Rate 50 L 04/21/18 06:00 Respiratory Rate 18 04/21/18 06:00 Blood Pressure 117/49 04/21/18 06:00 O2 Sat by Pulse Oximetry (%) 98 04/21/18 03:50 Constitutional: Yes: No Distress, Calm Eyes: Yes: Other (pale conjuntivae) Neck: Yes: Supple, Trachea Midline Cardiovascular: Yes: Regular Rate and Rhythm (paced), JVD, Murmur Gastrointestinal: Yes: Normal Bowel Sounds, Soft, Abdomen, Obese. No: Tenderness Musculoskeletal: Yes: Joint Swelling (bilateral knees) Edema: Yes Edema: LLE: 1+ (pedal and ankle up to midshins), RLE: 1+ (pedal and ankle up to midshins) Peripheral Pulses WNL: Yes Integumentary: Yes: WNL Neurological: Yes: WNL Labs: CBC, BMP 04/21/18 06:30 Abnormal Lab Results 04/20/18 04/20/18 04/20/18 22:30 22:30 22:30 RBC 2.97 L Hgb 8.1 L Hct 25.5 L MCHC 31.9 L RDW 17.4 H Plt Count 89 L D Neutrophils % 87.7 H D Lymphocytes % 3.1 L D PT with INR 16.80 H INR 1.49 H Chloride 110 H BUN 77 H Creatinine 2.3 H Random Glucose 157 H D Calcium 8.2 L Magnesium 2.9 H Alkaline Phosphatase 130 H Troponin I 0.12 H D B-Natriuretic Peptide Albumin 2.9 L 04/20/18 04/21/18 04/21/18 22:30 06:30 06:30 RBC 2.90 L Hgb 8.1 L Hct 24.9 L MCHC RDW 16.8 H Plt Count 75 L Neutrophils % 88.8 H Lymphocytes % 2.2 L D PT with INR INR Chloride 108 H BUN 80 H Creatinine 2.2 H Random Glucose 128 H Calcium 8.3 L Magnesium Alkaline Phosphatase Troponin I 0.08 H D B-Natriuretic Peptide 79726.53 H Albumin 2.8 L Imaging - Results X-ray: Pending (hip and knees) Ultrasound: Report Reviewed (no dvt in lower extr.) Problem List - Problems (1) CHERIE (acute kidney injury) Code(s): N17.9 - ACUTE KIDNEY FAILURE, UNSPECIFIED (2) Acute on chronic diastolic (congestive) heart failure Code(s): I50.33 - ACUTE ON CHRONIC DIASTOLIC (CONGESTIVE) HEART FAILURE (3) Hip pain, left Code(s): M25.552 - PAIN IN LEFT HIP (4) Anemia Code(s): D64.9 - ANEMIA, UNSPECIFIED Qualifiers: Iron deficiency anemia type: chronic blood loss (5) Anemia, iron deficiency Code(s): D50.9 - IRON DEFICIENCY ANEMIA, UNSPECIFIED Qualifiers: Iron deficiency anemia type: other iron deficiency Qualified Code(s): D50.8 - Other iron deficiency anemias (6) Atrial fibrillation Code(s): I48.91 - UNSPECIFIED ATRIAL FIBRILLATION Qualifiers: Atrial fibrillation type: chronic Qualified Code(s): I48.2 - Chronic atrial fibrillation (7) CAD (coronary artery disease) Code(s): I25.10 - ATHSCL HEART DISEASE OF [place] CORONARY ARTERY W/O ANG PCTRS Qualifiers: Coronary Disease-Associated Artery/Lesion type: [place] artery (8) Cirrhosis, alcoholic Code(s): K70.30 - ALCOHOLIC CIRRHOSIS OF LIVER WITHOUT ASCITES Qualifiers: Ascites presence: without ascites Qualified Code(s): K70.30 - Alcoholic cirrhosis of liver without ascites (9) 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
--- NOTE | 2018-04-21 08:16 | PN ---
Progress Note, Physician Chief Complaint: Well known to me from office and prior admissions. Recently admitted for CHF, underwent recent PPM placement. Now readmitted with hip pain, chronic. Mild volume overload and acute on chronic CKD. Denies CP, SOB, PND. No syncope. No fever or chills. + Left hip pain, recently saw ortho and had steroid injection. States pain continues. LE edema is chronic, has been better on Torsemide but waxes and wanes. Creatinine has also fluctuated recently with change of diuretic dose. - Current Medication List Current Medications: Active Medications Aspirin (Ecotrin -) 81 mg PO DAILY [facility] Atorvastatin Calcium (Lipitor -) 10 mg PO HS [facility] Furosemide (Lasix Injection -) 40 mg IVPUSH BID@0600,1400 [facility] Last Admin: 04/21/18 06:34 Dose: 40 mg Isosorbide Mononitrate (Imdur -) 30 mg PO DAILY [facility] Nadolol (Corgard -) 20 mg PO DAILY [facility] Ranitidine HCl (Zantac -) 150 mg PO DAILY [facility] Spironolactone (Aldactone -) 25 mg PO DAILY [facility] - Objective Vital Signs: Vital Signs Temperature 97.3 F L 04/21/18 06:00 Pulse Rate 50 L 04/21/18 06:00 Respiratory Rate 18 04/21/18 06:00 Blood Pressure 117/49 04/21/18 06:00 O2 Sat by Pulse Oximetry (%) 98 04/21/18 03:50 Constitutional: Yes: No Distress Eyes: Yes: Conjunctiva Clear Cardiovascular: Yes: Regular Rate and Rhythm (PACED rhythm) Respiratory: Yes: CTA Bilaterally (no rales, no wheezing) Gastrointestinal: Yes: Soft Edema: Yes Edema: LLE: 2+ (to ankle), RLE: 2+ (to ankle) Neurological: Yes: Alert Labs: CBC, BMP 04/21/18 06:30 04/21/18 06:30 INR, PTT INR 1.49 (0.82-1.09) H 04/20/18 22:30 - ....Imaging X-ray: Report Reviewed EKG: Image Reviewed (Paced rhythm, no sig arrhythmias) Assessment/Plan IMP: Cirrhosis Moderate AR AF s/p PPM (leadless) Acute on chronic diastolic/valvular CHF--mild decompensation Left hip pain, chronic. REC: Agree with IV Lasix for 1-2 days depending on clinical response. Continue tele x 24 hours while on IV diuretics. Expect relatively rapid improvement. Further Rx chronic hip pain as per PMD. Will follow.
[2018-04-21] MEDS: ASPIRIN COATED 81 MG TABLET.EC PO SCH (10:00)
[2018-04-21] MEDS: LIDOCAINE 5% TOPICAL PATCH TP SCH (10:00)
[2018-04-21] MEDS: RANITIDINE HCL 150 MG TABLET (FP) PO SCH (10:00)
[2018-04-21] MEDS: ISOSORBIDE MONONITRATE 30 MG TAB.SR.24H (FP) PO SCH (10:00)
[2018-04-21] MEDS: NADOLOL 20 MG TABLET (FP) PO SCH (10:00)
[2018-04-21] MEDS: SPIRONOLACTONE 25 MG TABLET (FP) PO SCH (10:00)
--- NOTE | 2018-04-21 11:26 | EKG ---
Test Reason : Blood Pressure : / mmHG Vent. Rate : 060 BPM Atrial Rate : 058 BPM P-R Int : 000 ms QRS Dur : 174 ms QT Int : 504 ms P-R-T Axes : 000 264 078 degrees QTc Int : 504 ms Ventricular-paced rhythm ABNORMAL ECG WHEN COMPARED WITH ECG OF 04-MAR-2018 19:04, VENT. RATE HAS DECREASED BY 22 BPM Confirmed by CHRISTIAN WYNN MD ([id number]) on 04/21/2018 11:25:54 AM Referred By: Confirmed By:CHRISTIAN WYNN MD
[2018-04-21] MEDS ORDERED: methylPREDNISolone ACET (DEPO) 80 MG/1 ML VIAL IAR ONE (17:15)
--- NOTE | 2018-04-21 17:17 | PN ---
Progress Note (short form) - Note Progress Note: Pt seen and examined. He c/o pain in the posterolateral aspect of the left hip. No pain in the LS spine area, or thigh. PE Xrays Show right hip OA, left hip s/p long stem revision THR with greater trochanter cage. Prosthesis looks to be in good position, no signs of loosening. Pelvis on left otherwise looks nl, no evidence of fracture. PE Able to ambulate, FWB. He walks with a waddling gait, favoring the left hip. LLE is NVI, good ROM. ITB nontender LS paraspinal muscles not tender to palpation, no evidence of muscle spasm. He is very tender directly over the left hip greater trochanter, reproducing the pain he has typically. Imp Left hip greater trochanteric bursitis. Rec Cortisone injection, medication ordered to floor Ice Activities as tolerated
[2018-04-21] MEDS ORDERED: ATORVASTATIN CA 10 MG TABLET (FP) PO SCH (22:00)
[2018-04-21] MEDS ORDERED: LIDOCAINE PATCH REMOVAL MC SCH (22:00)
[2018-04-22] MEDS: FUROSEMIDE 40 MG/4 ML INJECTABLE VIAL IVPUSH SCH (05:51)
[2018-04-22 06:53] LABS: BASO % 0.1 % (0-2.0); EOS % 0.5 % (0-4.5); HEMATOCRIT 25.7 % (35.4-49); HEMOGLOBIN 8.3 GM/dL (11.7-16.9); LYMPH % 4.2 % (8-40); MCH 27.6 pg (25.7-33.7); MCHC 32.3 g/dl (32.0-35.9); MEAN CELL VOLUME 85.4 fl (80-96); MEAN PLT VOLUME 9.2 fl (7.5-11.1); MONO % 9.3 % (3.8-10.2); NEUT % 85.9 % (42.8-82.8); PLATELET COUNT 82 K/MM3 (134-434); RBC 3.01 M/mm3 (4.00-5.60); RDW 17.2 % (11.9-15.9)
[2018-04-22 07:20] LABS: CHLORIDE 104 mmol/L (98-107); POTASSIUM 4.9 mmol/L (3.5-5.1); SODIUM 137 mmol/L (136-145)
[2018-04-22 07:30] LABS: ALK PHOS 123 U/L (45-117); ANION GAP 11 (8-16); BILIRUBIN,TOTAL 1.1 mg/dL (0.2-1.0); BLOOD UREA NITROGEN 88 mg/dL (7-18); CALCIUM 8.4 mg/dL (8.5-10.1); CO2 22 mmol/L (21-32); CREATININE 2.1 mg/dL (0.7-1.3); GLUCOSE,RANDOM 127 mg/dL (74-106); SGOT/AST 29 U/L (15-37); SGPT/ALT 34 U/L (12-78)
--- NOTE | 2018-04-22 08:20 | DS ---
Physical Examination Vital Signs: Vital Signs Temperature 98.3 F 04/22/18 02:00 Pulse Rate 51 L 04/22/18 05:50 Respiratory Rate 20 04/22/18 05:50 Blood Pressure 133/62 04/22/18 05:50 O2 Sat by Pulse Oximetry (%) 97 04/21/18 21:42 Constitutional: Yes: No Distress, Calm Eyes: Yes: EOM Intact HENT: Yes: Normocephalic Neck: Yes: Trachea Midline Cardiovascular: Yes: Regular Rate and Rhythm, Murmur Respiratory: Yes: CTA Bilaterally Gastrointestinal: Yes: Normal Bowel Sounds, Soft Edema: LLE: 2+ (ankle), RLE: 2+ (ankle) Peripheral Pulses WNL: Yes Psychiatric: Yes: WNL Labs: CBC, BMP 04/22/18 05:30 04/22/18 05:30 Discharge Summary Reason For Visit: ACUTE KIDNEY INJURY,SHORTNESS OF BREATH,ACUTE ON Current Active Problems CHERIE (acute kidney injury) (Acute) Acute on chronic diastolic (congestive) heart failure (Acute) Dyspnea (Acute) Hip pain, left (Acute) Presence of permanent cardiac pacemaker (Acute) Hospital Course: admitted for mild chf, renal insuff on diuretics, severe hip pain renal fnct, weight stable, cardiopulmonary status stable. will receive steroid injection to left hip prior to discharge ambulates independently with walker. stable to dc home with oupt f/up Condition: Fair - Instructions Referrals: Luna Mera MD [Primary Care Provider] - Disposition: VNS/HOME HEALTH CARE - Home Medications Comprehensive Discharge Medication List: Ambulatory Orders Isosorbide Mononitrate [Isosorbide Mononitrate ER] 30 mg PO DAILY 03/04/18 Nadolol 20 mg PO DAILY 03/04/18 Simvastatin 20 mg PO DAILY 03/04/18 Spironolactone 25 mg PO DAILY 03/04/18 Torsemide [Demadex -] 10 mg PO DAILY #30 tablet 04/22/18 Tramadol HCl 50 mg PO TID PRN 5 Days #15 tablet MDD 3 04/22/18
--- NOTE | 2018-04-22 08:32 | PN ---
Progress Note, Physician Chief Complaint: no acute distress TELE: paced. - Current Medication List Current Medications: Active Medications Aspirin (Ecotrin -) 81 mg PO DAILY [facility] Last Admin: 04/21/18 10:00 Dose: 81 mg Atorvastatin Calcium (Lipitor -) 10 mg PO HS [facility] Last Admin: 04/21/18 21:14 Dose: 10 mg Isosorbide Mononitrate (Imdur -) 30 mg PO DAILY [facility] Last Admin: 04/21/18 10:00 Dose: 30 mg Lidocaine (Lidoderm Patch -) 1 patch TP DAILY [facility] Last Admin: 04/21/18 10:00 Dose: 1 patch Miscellaneous (Lidoderm Patch Removal) 1 each MC DAILY@2200 [facility] Last Admin: 04/21/18 21:14 Dose: Not Given Nadolol (Corgard -) 20 mg PO DAILY [facility] Last Admin: 04/21/18 10:00 Dose: 20 mg Ranitidine HCl (Zantac -) 150 mg PO DAILY [facility] Last Admin: 04/21/18 10:00 Dose: 150 mg Spironolactone (Aldactone -) 25 mg PO DAILY [facility] Last Admin: 04/21/18 10:00 Dose: 25 mg - Objective Vital Signs: Vital Signs Temperature 98.3 F 04/22/18 02:00 Pulse Rate 51 L 04/22/18 05:50 Respiratory Rate 20 04/22/18 05:50 Blood Pressure 133/62 04/22/18 05:50 O2 Sat by Pulse Oximetry (%) 97 04/21/18 21:42 Constitutional: Yes: No Distress, Calm Cardiovascular: Yes: Regular Rate and Rhythm Respiratory: Yes: CTA Bilaterally Gastrointestinal: Yes: Soft Edema: Yes Edema: LLE: 2+ (ankle level), RLE: 2+ (ankled level) ...Motor Strength: WNL Labs: CBC, BMP 04/22/18 05:30 04/22/18 05:30 INR, PTT INR 1.49 (0.82-1.09) H 04/20/18 22:30 Laboratory Tests 04/20/18 04/20/18 04/21/18 22:30 22:30 06:30 WBC 8.3 Hgb 8.1 L Plt Count 75 L Sodium Potassium BUN Creatinine Creatine Kinase 51 Troponin I 0.12 H D B-Natriuretic Peptide 81479.53 H 04/21/18 04/22/18 04/22/18 06:30 05:30 05:30 WBC 8.0 Hgb 8.3 L Plt Count 82 L Sodium 140 137 Potassium 4.8 4.9 BUN 80 H 88 H Creatinine 2.2 H 2.1 H Creatine Kinase 45 Troponin I 0.08 H D B-Natriuretic Peptide - ....Imaging Ultrasound: Report Reviewed EKG: Image Reviewed Assessment/Plan IMP: Cirrhosis Moderate AR AF s/p PPM (leadless) Acute on chronic diastolic/valvular CHF--mild decompensation Left hip pain, chronic REC: Can d/c tele. Ok for discharge on home dose Torsemide; leg elevation; consider compression stockings. Outpt f/u of renal fxn. F/u w/ me in 1-2 weeks to assess volume status.
[2018-04-22] MEDS: RANITIDINE HCL 150 MG TABLET (FP) PO SCH (11:36)
[2018-04-22] MEDS: SPIRONOLACTONE 25 MG TABLET (FP) PO SCH (11:36)
[2018-04-22] MEDS: NADOLOL 20 MG TABLET (FP) PO SCH (11:36)
[2018-04-22] MEDS: ISOSORBIDE MONONITRATE 30 MG TAB.SR.24H (FP) PO SCH (11:36)
[2018-04-22] MEDS: LIDOCAINE 5% TOPICAL PATCH TP SCH (11:37)
[2018-04-22] MEDS: ASPIRIN COATED 81 MG TABLET.EC PO SCH (11:37)
[2018-04-22 14:39] VITALS: BP 133/60; PULSE 51; TEMP 97.5
[2018-04-22] MEDS ORDERED: LIDOCAINE HCL 1%, 10 MG/ML (20ML VIAL) ONE (14:45)
--- NOTE | 2018-04-22 14:56 | PN ---
Progress Note (short form) - Note Progress Note: UNDER STERILE CONDITIONS i GAVE HIM A LEFT GREATER TROCHANTERIC BURSAL INJECTION OF CORTISONE AND DEPOMEDROL. HE CAN BE DCed AND F/U IN THE OFFICE X 10 DAYS
== END 2018-04-22 16:05 | disposition home health service (06) ==
LOC: JER 21:42 → SUPCPDRO 21:42 → JERBED 04-21 00:02 → UNDOADMOB 04-21 00:02 → INTOOBSV 04-21 00:02 → J4W 04-21 03:49 → JERBED 04-21 03:49 → J4W 04-21 06:01
PROVIDERS: ADMIT Internal Medicine; ATTEND Internal Medicine
PROC: 3E0U3BZ Introduction of Anesthetic Agent into Joints, Percutaneous Approach (ICD-10-PCS; principal; 2018-04-21)
PROC: 3E0333Z Introduction of Anti-inflammatory into Peripheral Vein, Percutaneous Approach (ICD-10-PCS; 2018-04-21)
DX: N17.9 Acute kidney failure, unspecified (principal); R06.09 Other forms of dyspnea; I50.33 Acute on chronic diastolic (congestive) heart failure; D50.9 Iron deficiency anemia, unspecified; I48.91 Unspecified atrial fibrillation; I25.10 Atherosclerotic heart disease of native coronary artery without angina pectoris; I86.4 Gastric varices; K70.30 Alcoholic cirrhosis of liver without ascites; R60.9 Edema, unspecified; R06.02 Shortness of breath; M71.552 Other bursitis, not elsewhere classified, left hip; Z95.0 Presence of cardiac pacemaker; Z88.1 Allergy status to other antibiotic agents; Z85.46 Personal history of malignant neoplasm of prostate
CPT/HCPCS: 36415; 73523-TC-FY; 73562-TC-LT-FY; 80053; 82550; 83735; 83880; 84484; 85025; 85610; 93005; 93010; 93970-TC; 96374; 96376; 97116-GP; 97161-GP; 99284-25; G0378

== ENCOUNTER 2018-06-09 14:15 | Inpatient (IN) | payer OTHER ==
--- NOTE | 2018-06-09 14:39 | PDOC ---
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 Patient and family at bedside state that he has had worsening bilateral lower extremity pitting edema, increased abdominal protuberance, and worsening SOB for the past few weeks. He feels that it is tough to take in a complete breath because of his abdominal fullness. He has also had a wound in his left hip that has been constantly draining sero-sanguineous fluid. Dr. Vasquez has been managing his issues and sent him to a wound care clinic today who examined the wound. After relaying their results to tia Vasquez, she felt that he needed to be brought into the hospital for IV dieresis and possibly an albumin challenge. Patient denies fevers, chills, nausea, vomiting, diarrhea, constipation, headache, or other symptoms. Past History - Past Medical History Allergies/Adverse Reactions: Allergies Allergy/AdvReac Type Severity Reaction Status Date / Time cephalexin Allergy Verified 06/09/18 14:22 Home Medications: Ambulatory Orders Isosorbide Mononitrate [Isosorbide Mononitrate ER] 30 mg PO DAILY 03/04/18 Nadolol 20 mg PO DAILY 03/04/18 Simvastatin 20 mg PO DAILY 03/04/18 Spironolactone 25 mg PO DAILY 03/04/18 Acetaminophen [Tylenol .Regular Strength -] 650 mg PO Q6H PRN tablet 05/09/18 Amoxicillin - [Amoxicillin 875mg Tablet -] 875 mg PO BID #60 tab 05/09/18 Pantoprazole Sodium [Protonix -] 40 mg PO DAILY tablet.ec 05/09/18 Torsemide [Demadex -] 10 mg PO DAILY tablet 05/09/18 Zolpidem Tartrate [Ambien] 5 mg PO HS 06/09/18 Anemia: No Asthma: Yes Cancer: Yes (PROSTATE) Cardiac Disorders: Yes (ASHD S/P DC FOLLOWING HIP SX) CVA: No COPD: No CHF: Yes DVT: No Dementia: No Diabetes: No GI Disorders: Yes (COLON POLYPS-) Disorders: Yes HTN: Yes Hypercholesterolemia: Yes Liver Disease: No Seizures: No Thyroid Disease: No - Surgical History Abdominal Surgery: No Appendectomy: No Cardiac Surgery: Yes (pacemaker) Cholecystectomy: No Lung Surgery: No Neurologic Surgery: No Orthopedic Surgery: Yes (LEFT HIP REPLACEMENT, LEFT KNEE ARTHROSCOPY) - Immunization History Immunization Up to Date: Yes - Suicide/Smoking/Psychosocial Hx Smoking Status: Yes Smoking History: Former smoker Have you smoked in the past 12 months: No Number of Cigarettes Smoked Daily: 0 If you are a former smoker, when did you quit?: many years Cigars Per Day: 0 Information on smoking cessation initiated: No Hx Alcohol Use: No Drug/Substance Use Hx: No Substance Use Type: None Hx Substance Use Treatment: No Review of Systems - Review of Systems Constitutional: No: Chills, Diaphoresis, Fever HEENTM: No: Blurred Vision, Tearing Respiratory: Yes: Shortness of Breath, SOB with Exertion. No: Cough, Orthopnea Cardiac (ROS): No: Chest Pain, Irregular Heart Rate, Chest Tightness ABD/GI: No: Diarrhea, Nausea, Vomiting : No: Burning, Dysuria, Discharge Musculoskeletal: Yes: Joint Pain Integumentary: Yes: Lesions. No: Bruising, Erythema, Flushing Neurological: No: Headache, Numbness, Paresthesia Psychiatric: No: Anxiety, Depression Endocrine: No: Intolerance to Heat, Increased Hunger Hematologic/Lymphatic: No: Anemia, Blood Clots, Easy Bleeding *Physical Exam - Vital Signs Last Vital Signs Temp Pulse Resp BP Pulse Ox 98.2 F 61 18 139/49 100 06/09/18 14:23 06/09/18 14:23 06/09/18 14:23 06/09/18 14:23 06/09/18 14:23 - Physical Exam General Appearance: Yes: Nourished, Appropriately Dressed. No: Apparent Distress HEENT: positive: EOMI, JESSIKA, Normal ENT Inspection, Normal Voice Neck: positive: Trachea midline, Normal Thyroid, Supple. negative: Tender, Rigid Respiratory/Chest: positive: Lungs Clear, Normal Breath Sounds. negative: Chest Tender, Respiratory Distress, Accessory Muscle Use Cardiovascular: positive: Regular Rhythm, Regular Rate Gastrointestinal/Abdominal: positive: Normal Bowel Sounds, Soft, Protuberent, Distended. negative: Tender, Flat Lymphatic: negative: Adenopathy, Tenderness Musculoskeletal: positive: Other (Lef thip has 5mm well cirbuscribed lesion that is actively draining serous fluid. No sign of obvious infection. ). negative: Normal Inspection (3+ pitting edema bilaterally in LEs up to hips), CVA Tenderness Extremity: positive: Normal Capillary Refill, Normal Range of Motion, Pedal Edema, Swelling. negative: Normal Inspection, Tender Integumentary: positive: Normal Color, Dry, Warm Neurologic: positive: Fully Oriented, Alert, Normal Mood/Affect, Normal Response , Motor Strength 02/19 ED Treatment Course - LABORATORY CBC & Chemistry Diagram: 06/10/18 10:05 06/10/18 06:15 Medical Decision Making - Medical Decision Making 83 year old sent in by Dr. Vasquez for admission with possible need for albumin challenge given high levels of fluid retention and drainage from hip wound. Patient appear stable overall but is clearly very volume overloaded. Discussed with Nesha and admitted. *DC/Admit/Observation/Transfer Diagnosis at time of Disposition: Shortness of breath, Anasarca, Peripheral edema Cirrhosis, alcoholic Qualifiers: Ascites presence: with ascites Qualified Code(s): K70.31 - Alcoholic cirrhosis of liver with ascites - Discharge Dispostion Condition at time of disposition: Stable Decision to Admit order: Yes - Referrals - Patient Instructions - Post Discharge Activity
--- NOTE | 2018-06-09 15:19 | PDOC ---
Attending Attestation - Resident Resident Name: YosiLibradodiontemanny - ED Attending Attestation I have performed the following: I have examined & evaluated the patient, The case was reviewed & discussed with the resident, I agree w/resident's findings & plan, Exceptions are as noted - HPI HPI: 06/09/18 16:57 The patient is an 83 year old male with PMHx of alcohol cirrhosis, afib, obesity , prostate ca, colon polyps, hypertension, hypercholesterolemia, left hip replacement, left knee arthroscopy, CAD,CHF, CHB, FL, and anemia , who presents with left hip wound w/ drainage, worsening LE edema, and sob. Patient has chief complaint of left hip wound w/ drainage over the past 4-[address] Luna Stern sent her here because of fluid overload to be admitted. Allergies: Cephalexin Social History: Former EtOH and cigarette use. No drug use. Surgical History: Left hip replacement. Left knee arthroscopy. Pacemaker. PCP: Dr. Gay - Physicial Exam PE: 06/09/18 18:54 abd: distended abdomen, no focal tenderness, periumbilical hernia that is reducible and nontender ext: L hip: .5cm wound no active discharge, no erythema, no induration, bl pitting edma in the lower extremities - Medical Decision Making 06/09/18 16:13 will admit pt for further managemnt of wound per dr. alexandre Heart Score/ECG Review - ECG Impressions Comment:: 06/09/18 18:51 Twelve-lead EKG was performed and reviewed by me. ventricular paced rhthm rate of 66
[2018-06-09 15:58] LABS: BASO % 1.2 % (0-2.0); EOS % 4.9 % (0-4.5); HEMATOCRIT 26.2 % (35.4-49); HEMOGLOBIN 8.4 GM/dL (11.7-16.9); LYMPH % 16.9 % (8-40); MCH 27.9 pg (25.7-33.7); MCHC 32.2 g/dl (32.0-35.9); MEAN CELL VOLUME 86.8 fl (80-96); MEAN PLT VOLUME 8.4 fl (7.5-11.1); MONO % 14.6 % (3.8-10.2); NEUT % 62.4 % (42.8-82.8); PLATELET COUNT 112 K/MM3 (134-434); RBC 3.01 M/mm3 (4.00-5.60); RDW 18.6 % (11.9-15.9); WHITE BLOOD COUNT 2.7 K/mm3 (4.0-10.0)
[2018-06-09 16:01] LABS: URINE APPEARANCE CLEAR; URINE BILIRUBIN NEGATIVE (<2.0 mg/dL); URINE COLOR LTYELLOW; URINE GLUCOSE (UA) NEGATIVE (NEGATIVE); URINE KETONE NEGATIVE (NEGATIVE); URINE LEUK ESTERASE NEGATIVE (NEGATIVE); URINE NITRITE NEGATIVE (NEGATIVE); URINE PROTEIN NEGATIVE (NEGATIVE); URINE UROBILINOGEN NEGATIVE mg/dL (0.2-1.0)
[2018-06-09 16:18] LABS: ALBUMIN 2.3 g/dl (3.4-5.0); ALK PHOS 138 U/L (45-117); ANION GAP 5 MMOL/L (8-16); BILIRUBIN,TOTAL 0.6 mg/dL (0.2-1.0); BLOOD UREA NITROGEN 25 mg/dL (7-18); CALCIUM 7.9 mg/dL (8.5-10.1); CHLORIDE 105 mmol/L (98-107); CO2 32 mmol/L (21-32); GLUCOSE,RANDOM 149 mg/dL (74-106); POTASSIUM 3.8 mmol/L (3.5-5.1); SGOT/AST 36 U/L (15-37); SGPT/ALT 25 U/L (12-78); SODIUM 142 mmol/L (136-145); TOT PROT 6.1 g/dl (6.4-8.2)
[2018-06-09 16:26] LABS: INR 1.18 (0.83-1.09); PROTHROMBIN TIME (PATIENT) 13.3 SEC (9.7-13.0)
[2018-06-09] MEDS ORDERED: FUROSEMIDE 40 MG/4 ML INJECTABLE VIAL IVPUSH ONE (17:12)
[2018-06-09] MEDS ORDERED: FUROSEMIDE 40 MG/4 ML INJECTABLE VIAL ONE (17:59)
--- NOTE | 2018-06-09 18:25 | HP ---
Admitting History and Physical - Primary Care Physician PCP: Luna Mera - Admission Chief Complaint: weakness, anasarca, hip fistula with copious amount of serosanguinous discharge History of Present Illness: finished iv abx for presumed septic arthritis of left hip on 06.04.18,he has had persistent serosanguinous discharge from left hip fistula, however discharge has increased in last two days, more blood, drenching clothes through dressing several times daily. he feals weaker, with occasional dizzyness. lives home alone, VNS saw pt this am, was concerned about the amount of blood hat was in the dressing and around pt he was seen at wound care later today,likely persistent anasarca and low albumin level is contributing to his large amount of persistent hip drainage after lengthy discussion pt was sent back to er for iv diuresis and icv albumin infusion to try to decrease his ansarca and consequently his hip drainage History Source: Patient Limitations to Obtaining History: No Limitations - Past Medical History Cardiovascular: Yes: AFIB (paroxysmal), Aortic Insufficiency, CAD (STEMI 2012 after THR, s/p card.cath.), HTN, Hyperlipdemia, CT (STEMI 2012), Other (PAFib- not on AC due to thrombocytopenia and anemia) Pulmonary: Yes: Bronchitis Gastrointestinal: Yes: Gastritis (gastric antrum varices and portal gastopathy) , GERD, GI Bleed (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), Other (EGD :mid-esophageal varix, angiodysplastic lesion in entire stomach, duodenal inflammation.EGD 03.03: portal HTN, gastric varices, Colonoscopy :3 polyps were removed, small angiodysplastic lesion at cecum , internal hemorrhoids.) Hepatobiliary: Yes: Cirrhosis (Alcoholic cirrhosis) Renal/: Yes: Cancer (h/o prostate ca treated with RT), Other (prostate cancer treated with RT) Heme/Onc: No: Anemia, B12 Deficiency, Bleeding Disorder, Cancer, Current Chemotherapy, Current Radiation Therapy, Hemochromatosis, Hypercoaguable State, Myeloproliferative Synd, Sickle Cell Disease, Sickle Cell Trait, Thrombocytopenia, Other Infectious Disease: Yes: Other (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) Musculoskeletal: Yes: Osteoarthritis Endocrine: Yes: Diabetes Mellitus - Past Surgical History Past Surgical History: Yes: Amputation (accidental distal left hand 2nd digit), Arthrosocopy (left knee), Colonoscopy, Joint Replacement (L THR 2012 with subsequent removal of hardware), Permanent Pacemaker (leadless placed in ) , Upper Endoscopy - Smoking History Smoking history: Former smoker Have you smoked in the past 12 months: No Aproximately how many cigarettes per day: 0 If you are a former smoker, when did you quit?: many years - Alcohol/Substance Use Hx Alcohol Use: No Date of Last Use: 02/24/17 - Social History ADL: Independent 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 History of Recent Travel: No Home Medications - Allergies Allergies/Adverse Reactions: Allergies Allergy/AdvReac Type Severity Reaction Status Date / Time cephalexin Allergy Verified 06/09/18 14:22 - Home Medications Home Medications: Ambulatory Orders Isosorbide Mononitrate [Isosorbide Mononitrate ER] 30 mg PO DAILY 03/04/18 Nadolol 20 mg PO DAILY 03/04/18 Simvastatin 20 mg PO DAILY 03/04/18 Spironolactone 25 mg PO DAILY 03/04/18 Acetaminophen [Tylenol .Regular Strength -] 650 mg PO Q6H PRN tablet 05/09/18 Amoxicillin - [Amoxicillin 875mg Tablet -] 875 mg PO BID #60 tab 05/09/18 Pantoprazole Sodium [Protonix -] 40 mg PO DAILY tablet.ec 05/09/18 Torsemide [Demadex -] 10 mg PO DAILY tablet 05/09/18 Zolpidem Tartrate [Ambien] 5 mg PO HS 06/09/18 Family Disease History - Family Disease History Family Disease History: Diabetes: Mother ( 98 pancreatic cancer), CA: Mother , Brother (colon cancer,prostate cancer, alcoholic cirrhosis), Respiratory: Father ( age 54 pneumonia) Review of Systems - Review of Systems Constitutional: reports: Lethargy, Loss of Appetite, Weakness Eyes: reports: No Symptoms HENT: reports: No Symptoms Neck: reports: No Symptoms Cardiovascular: reports: No Symptoms Respiratory: reports: No Symptoms Gastrointestinal: reports: Bloating, Constipation, Indigestion Musculoskeletal: reports: Joint Pain (left hip pain has improved since april) Integumentary: reports: Other (left hip fistula with large amount of constant discharge) Endocrine: reports: No Symptoms Physical Examination Vital Signs: Vital Signs Temperature 98.2 F 06/09/18 14:23 Pulse Rate 61 06/09/18 18:06 Respiratory Rate 22 06/09/18 18:06 Blood Pressure 128/54 06/09/18 18:06 O2 Sat by Pulse Oximetry (%) 98 06/09/18 18:06 Constitutional: Yes: Calm, Pallor, Thin Eyes: Yes: Conjunctiva Clear, EOM Intact HENT: Yes: Atraumatic, Normocephalic Neck: Yes: Supple, Trachea Midline Cardiovascular: Yes: Regular Rate and Rhythm Respiratory: Yes: Regular, CTA Bilaterally Gastrointestinal: Yes: Normal Bowel Sounds, Abdomen, Obese, Distention Edema: Yes Edema: LLE: 4+, RLE: 4+ Peripheral Pulses WNL: Yes Integumentary: Yes: Other (3-4 mm opening over left hip draining copious amount of serosanquinous discharge) Neurological: Yes: WNL, Alert, Oriented Psychiatric: Yes: WNL Labs: CBC, BMP 06/09/18 15:15 06/09/18 15:21 Problem List - Problems (1) Fistula of left hip Code(s): M25.152 - FISTULA, LEFT HIP (2) Acute on chronic diastolic (congestive) heart failure Code(s): I50.33 - ACUTE ON CHRONIC DIASTOLIC (CONGESTIVE) HEART FAILURE (3) Anasarca Code(s): R60.1 - GENERALIZED EDEMA (4) Anemia Code(s): D64.9 - ANEMIA, UNSPECIFIED Qualifiers: Anemia type: iron deficiency Iron deficiency anemia type: other iron deficiency Qualified Code(s): D50.8 - Other iron deficiency anemias (5) Atrial fibrillation Code(s): I48.91 - UNSPECIFIED ATRIAL FIBRILLATION Qualifiers: Atrial fibrillation type: chronic Qualified Code(s): I48.2 - Chronic atrial fibrillation (6) CAD (coronary artery disease) Code(s): I25.10 - ATHSCL HEART DISEASE OF [place] CORONARY ARTERY W/O ANG PCTRS Qualifiers: Coronary Disease-Associated Artery/Lesion type: [place] artery [place] vs. transplanted heart: [place] heart Associated angina: without angina Qualified Code(s): I25.10 - Atherosclerotic heart disease of [place] coronary artery without angina pectoris (7) Cirrhosis, alcoholic Code(s): K70.30 - ALCOHOLIC CIRRHOSIS OF LIVER WITHOUT ASCITES Qualifiers: Ascites presence: with ascites Qualified Code(s): K70.31 - Alcoholic cirrhosis of liver with ascites (8) 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 (9) Hypersplenism Code(s): D73.1 - HYPERSPLENISM (10) Hypertension Code(s): I10 - ESSENTIAL (PRIMARY) HYPERTENSION Qualifiers: Hypertension type: essential hypertension Qualified Code(s): I10 - Essential (primary) hypertension (11) Pancytopenia Code(s): D61.818 - OTHER PANCYTOPENIA (12) Presence of permanent cardiac pacemaker Code(s): Z95.0 - PRESENCE OF CARDIAC PACEMAKER (13) Septic arthritis Code(s): M00.9 - PYOGENIC ARTHRITIS, UNSPECIFIED Qualifiers: Septic arthritis location: hip Laterality: left Assessment/Plan will admit hip for iv diuresis with iv albumin to alleviate his third spacing and reduce hip discharge. discharge may never cease completely, however at this point given frailty, multiple medical problems including CAD, pancytopenia and cirrhosis at this level is unacceptable and detrimental. [facility] monitor weight and lytes closely.
[2018-06-09] MEDS: ALBUMIN HUMAN 25% 12.5 GM/50 ML VIAL IVPB SCH (18:55)
[2018-06-09] MEDS ORDERED: AMOXICILLIN PO SCH (22:00)
[2018-06-09] MEDS ORDERED: FUROSEMIDE 40 MG/4 ML INJECTABLE VIAL IVPUSH SCH (22:00)
[2018-06-09] MEDS: ZOLPIDEM TARTRATE 5 MG TABLET PO PRN (22:05)
[2018-06-09] MEDS: ACETAMINOPHEN 325 MG TABLET (FP) PO PRN (22:05)
[2018-06-09] MEDS: AMOXICILLIN 500 MG CAPSULE (FP) PO SCH (22:06)
--- NOTE | 2018-06-09 22:39 | CON.GI ---
Consult Consult Specialty:: Gastroenterology Referred by:: Dr Caren eMra Reason for Consultation:: Cirrhosis,Ascites, Anasarca - History of Present Illness Chief Complaint: left hip drainage History of Present Illness: 83M is admitted for management of a persistently draining left hip fistula from presumed septic arthritis. He had a Left THR in 2012 many years ago which apparently had to be revised vs hardware removed but which had been stable for years. He has alcoholic cirrhosis with a 05/04 CT revealing increased ascites since an earlier study this year. He stopped drinking alcohol in 03/03. EGD revealed gastric and duodenal varices and portal gastropathy. His last colonoscopy on 10/25/15 led to candy removal of distal transverse colon adenoma and revealed cecal and rectal angiodysplasias. The rectal ectasia reflect RT proctitis. He has been moving his bowels normally and denies bleeding. He denies abdominal pain. 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), Other (EGD 03/03 gastric and duodenal varices, portal gastropathy, Colonoscopy 2016: rignt an tx colon adenomas were removed, small angiodysplastic lesion at cecum, internal hemorrhoids.) Hepatobiliary: Yes: Cirrhosis (Alcoholic cirrhosis) Renal/: Yes: Cancer (h/o prostate ca treated with RT), Other (prostate cancer treated with RT) Heme/Onc: Yes: Anemia (pancytopenia) Infectious Disease: Yes: Other (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) Musculoskeletal: Yes: Osteoarthritis Endocrine: Yes: Diabetes Mellitus - Past Surgical History Past Surgical History: Yes: Amputation (accidental distal left hand 2nd digit), Arthrosocopy (left knee), Colonoscopy, Joint Replacement (L THR 2012 with subsequent removal of hardware), Permanent Pacemaker (leadless placed in ) , Upper Endoscopy - Alcohol/Substance Use Hx Alcohol Use: Yes (quit 03/03) History of Substance Use: reports: None Date of Last Use: 02/24/17 - Smoking History Smoking history: Former smoker Have you smoked in the past 12 months: No Aproximately how many cigarettes per day: 0 If you are a former smoker, when did you quit?: many years - Social History Usual Living Arrangement: Alone ADL: Independent 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 (year): age 24 History of Recent Travel: No Home Medications - Allergies Allergies/Adverse Reactions: Allergies Allergy/AdvReac Type Severity Reaction Status Date / Time cephalexin Allergy Verified 06/09/18 14:22 - Home Medications Home Medications: Ambulatory Orders Isosorbide Mononitrate [Isosorbide Mononitrate ER] 30 mg PO DAILY 03/04/18 Nadolol 20 mg PO DAILY 03/04/18 Simvastatin 20 mg PO DAILY 03/04/18 Spironolactone 25 mg PO DAILY 03/04/18 Acetaminophen [Tylenol .Regular Strength -] 650 mg PO Q6H PRN tablet 05/09/18 Amoxicillin - [Amoxicillin 875mg Tablet -] 875 mg PO BID #60 tab 05/09/18 Pantoprazole Sodium [Protonix -] 40 mg PO DAILY tablet.ec 05/09/18 Torsemide [Demadex -] 10 mg PO DAILY tablet 05/09/18 Zolpidem Tartrate [Ambien] 5 mg PO HS 06/09/18 Family Disease History - Family Disease History Family Disease History: Diabetes: Mother ( 98 pancreatic cancer), CA: Mother , Brother (colon cancer,prostate cancer, alcoholic cirrhosis), Respiratory: Father ( age 54 pneumonia) Review of Systems - Review of Systems Constitutional: reports: Chills, Fever, Weakness Eyes: reports: No Symptoms HENT: reports: No Symptoms Neck: reports: No Symptoms Cardiovascular: reports: No Symptoms Respiratory: reports: Exercise Intolerance Gastrointestinal: reports: No Symptoms Integumentary: reports: Wound (constant left hip drainage) Physical Exam-GI Vital Signs: Vital Signs Temperature 98.2 F 06/09/18 14:23 Pulse Rate 61 06/09/18 18:06 Respiratory Rate 22 06/09/18 18:06 Blood Pressure 128/54 06/09/18 18:06 O2 Sat by Pulse Oximetry (%) 98 06/09/18 18:06 CBC,CMP WBC 2.7 K/mm3 (4.0-10.0) L 06/09/18 15:15 RBC 3.01 M/mm3 (4.00-5.60) L 06/09/18 15:15 Hgb 8.4 GM/dL (11.7-16.9) L 06/09/18 15:15 Hct 26.2 % (35.4-49) L 06/09/18 15:15 MCV 86.8 fl (80-96) 06/09/18 15:15 MCH 27.9 pg (25.7-33.7) 06/09/18 15:15 MCHC 32.2 g/dl (32.0-35.9) 06/09/18 15:15 RDW 18.6 % (11.9-15.9) H 06/09/18 15:15 Plt Count 112 K/MM3 (134-434) L 06/09/18 15:15 MPV 8.4 fl (7.5-11.1) 06/09/18 15:15 Absolute Neuts (auto) 1.7 K/mm3 (1.5-8.0) 06/09/18 15:15 Neutrophils % 62.4 % (42.8-82.8) 06/09/18 15:15 Lymphocytes % 16.9 % (8-40) 06/09/18 15:15 Monocytes % 14.6 % (3.8-10.2) H 06/09/18 15:15 Eosinophils % 4.9 % (0-4.5) H 06/09/18 15:15 Basophils % 1.2 % (0-2.0) 06/09/18 15:15 Nucleated RBC % 0 % (0-0) 06/09/18 15:15 Sodium 142 mmol/L (136-145) 06/09/18 15:21 Potassium 3.8 mmol/L (3.5-5.1) 06/09/18 15:21 Chloride 105 mmol/L (98-107) 06/09/18 15:21 Carbon Dioxide 32 mmol/L (21-32) 06/09/18 15:21 Anion Gap 5 MMOL/L (8-16) L 06/09/18 15:21 BUN 25 mg/dL (7-18) H 06/09/18 15:21 Creatinine 1.0 mg/dL (0.7-1.3) 06/09/18 15:21 Creat Clearance w eGFR > 60 (>60) 06/09/18 15:21 Random Glucose 149 mg/dL (74-106) H 06/09/18 15:21 Calcium 7.9 mg/dL (8.5-10.1) L 06/09/18 15:21 Total Bilirubin 0.6 mg/dL (0.2-1.0) 06/09/18 15:21 AST 36 U/L (15-37) 06/09/18 15:21 ALT 25 U/L (12-78) 06/09/18 15:21 Alkaline Phosphatase 138 U/L (45-117) H D 06/09/18 15:21 Total Protein 6.1 g/dl (6.4-8.2) L 06/09/18 15:21 Albumin 2.3 g/dl (3.4-5.0) L 06/09/18 15:21 Current Medications Generic Name Dose Route Start Last Admin Trade Name Freq PRN Reason Stop Dose Admin Acetaminophen 650 mg 06/09/18 18:06 06/09/18 22:05 Tylenol - PO 650 mg Q6H PRN Administration FEVER Albumin Human 12.5 gm 06/09/18 18:30 06/09/18 18:55 Albumin Human 25% IVPB 06/11/18 06:31 12.5 gm Q12H MARIAH Administration Amoxicillin 500 mg 06/09/18 22:00 06/09/18 22:06 Amoxicillin - PO 500 mg TID MARIAH Administration Atorvastatin Calcium 10 mg 06/10/18 22:00 Lipitor - PO HS MARIAH Furosemide 40 mg 06/10/18 02:00 Lasix Injection - IVPUSH Q8H-IV MARIAH Isosorbide Mononitrate 30 mg 06/10/18 10:00 Imdur - PO DAILY MARIAH Nadolol 20 mg 06/10/18 10:00 Corgard - PO DAILY MARIAH Pantoprazole Sodium 40 mg 06/10/18 10:00 Protonix - PO DAILY MARIAH Spironolactone 25 mg 06/10/18 10:00 Aldactone - PO DAILY MARIAH Zolpidem Tartrate 5 mg 06/09/18 18:06 06/09/18 22:05 Ambien - PO 5 mg HS PRN Administration INSOMNIA Constitutional: Yes: Calm Eyes: Yes: Conjunctiva Clear HENT: Yes: Atraumatic Neck: Yes: Supple Cardiovascular: Yes: Regular Rate and Rhythm Respiratory: Yes: CTA Bilaterally Gastrointestinal Inspection: Yes: Hernia (nontender umbilical hernia) ...Auscultate: Yes: Normoactive Bowel Sounds ...Palpate: Yes: Soft, Other (nontender) ...Rectal Exam: Yes: Guaiac Negative, Hemorrhoids/External (no masses, shrunken prostate), Sphincter Tone Normal Edema: LUE: 4+, RUE: 4+ Neurological: Yes: Alert, Oriented Labs: CBC, BMP 06/09/18 15:15 06/09/18 15:21 INR, PTT INR 1.18 (0.83-1.09) H 06/09/18 15:15 Problem List - Problems (1) Alcoholic cirrhosis of liver with ascites Assessment/Plan: Will obtain sonogram to gauge amount of ascites. There is no clinical evidence of SBP, hepatic encephalopathy or GI bleeding fortunately. Trial of salt poor albumin and diuretics has already been started. He does have major lower extremity edema likely reflecting a component of cor pulmonale and his tricuspid insufficiency. Code(s): K70.31 - ALCOHOLIC CIRRHOSIS OF LIVER WITH ASCITES (2) 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 (3) Left hip postoperative wound infection Code(s): T81.4XXA - INFECTION FOLLOWING A PROCEDURE, INITIAL ENCOUNTER; B99.9 - UNSPECIFIED INFECTIOUS DISEASE Qualifiers: Encounter type: sequela Qualified Code(s): T81.4XXS - Infection following a procedure, sequela; B99.9 - Unspecified infectious disease (4) Peripheral edema Code(s): R60.9 - EDEMA, UNSPECIFIED (5) Radiation proctitis Code(s): K62.7 - RADIATION PROCTITIS (6) Systolic and diastolic CHF w/reduced LV function, NYHA class 4 Code(s): I50.40 - UNSP COMBINED SYSTOLIC AND DIASTOLIC (CONGESTIVE) HRT FAIL (7) Family history of malignant neoplasm of colon in first degree relative diagnosed when younger than 60 years of age Code(s): Z80.0 - FAMILY HISTORY OF MALIGNANT NEOPLASM OF DIGESTIVE ORGANS (8) Colon adenomas Code(s): D12.6 - BENIGN NEOPLASM OF COLON, UNSPECIFIED
[2018-06-10 01:27] VITALS: BMI 31.0
[2018-06-10] MEDS: FUROSEMIDE 40 MG/4 ML INJECTABLE VIAL IVPUSH SCH ×3 (02:25→17:35)
[2018-06-10] MEDS: ACETAMINOPHEN 325 MG TABLET (FP) PO PRN ×2 (04:01→21:42)
[2018-06-10] MEDS: AMOXICILLIN 500 MG CAPSULE (FP) PO SCH ×3 (06:06→21:42)
[2018-06-10] MEDS: ALBUMIN HUMAN 25% 12.5 GM/50 ML VIAL IVPB SCH ×2 (06:08→17:44)
[2018-06-10 07:23] LABS: BASO % 1.1 % (0-2.0); EOS % 7.1 % (0-4.5); HEMATOCRIT 22.3 % (35.4-49); HEMOGLOBIN 7.1 GM/dL (11.7-16.9); MCH 27.5 pg (25.7-33.7); MCHC 31.8 g/dl (32.0-35.9); MEAN CELL VOLUME 86.4 fl (80-96); MEAN PLT VOLUME 8.2 fl (7.5-11.1); NEUT % 50.8 % (42.8-82.8); PLATELET COUNT 79 K/MM3 (134-434); RBC 2.58 M/mm3 (4.00-5.60); RDW 18.4 % (11.9-15.9)
[2018-06-10 07:48] LABS: WHITE BLOOD COUNT 1.8 K/mm3 (4.0-10.0)
[2018-06-10 08:05] LABS: ALBUMIN 2.4 g/dl (3.4-5.0); ALK PHOS 103 U/L (45-117); ANION GAP 5 MMOL/L (8-16); BILIRUBIN,TOTAL 0.8 mg/dL (0.2-1.0); BLOOD UREA NITROGEN 23 mg/dL (7-18); CALCIUM 7.7 mg/dL (8.5-10.1); CHLORIDE 104 mmol/L (98-107); CO2 32 mmol/L (21-32); CREATININE 0.9 mg/dL (0.7-1.3); GLUCOSE,RANDOM 111 mg/dL (74-106); POTASSIUM 3.7 mmol/L (3.5-5.1); SGOT/AST 29 U/L (15-37); SGPT/ALT 21 U/L (12-78); SODIUM 141 mmol/L (136-145); TOT PROT 5.7 g/dl (6.4-8.2)
--- NOTE | 2018-06-10 08:30 | PN ---
Progress Note (short form) - Note Progress Note: admitted for increased serosanguinous hip drainage and lightheadedness, concern of blood loss severe edema/anasarca lower ext. contributing to third spacing and drainage too started albumin, iv lasix drainage has decreased overnight however this am labs show worsening pancytopenia CBC, BMP 06/10/18 06:15 06/10/18 06:15 Vital Signs Period Temp Pulse Resp BP Sys/Brothers Pulse Ox Last 24 Hr 97.7 F-98.2 F 59-94 18-22 109-143/49-73 98-100 s1s2 rrr lungs cta abd soft +bs +++lower ext edema aaox3 hip drainage edema, peripheral with cirrhosis aortic insuff cad/chr syst chf afib persistent iron def. anemia pancytopenia cont albumin cont iv diuresis double check cbc type and cross for 2 u prbc consults appreciated will also request heme f/up BM was done last year with dr lawrence Problem List - Problems (1) Fistula of left hip Code(s): M25.152 - FISTULA, LEFT HIP (2) Acute on chronic diastolic (congestive) heart failure Code(s): I50.33 - ACUTE ON CHRONIC DIASTOLIC (CONGESTIVE) HEART FAILURE (3) Anasarca Code(s): R60.1 - GENERALIZED EDEMA (4) Anemia Code(s): D64.9 - ANEMIA, UNSPECIFIED Qualifiers: Anemia type: iron deficiency Iron deficiency anemia type: other iron deficiency Qualified Code(s): D50.8 - Other iron deficiency anemias (5) Atrial fibrillation Code(s): I48.91 - UNSPECIFIED ATRIAL FIBRILLATION Qualifiers: Atrial fibrillation type: chronic Qualified Code(s): I48.2 - Chronic atrial fibrillation (6) CAD (coronary artery disease) Code(s): I25.10 - ATHSCL HEART DISEASE OF [place] CORONARY ARTERY W/O ANG PCTRS Qualifiers: Coronary Disease-Associated Artery/Lesion type: [place] artery [place] vs. transplanted heart: [place] heart Associated angina: without angina Qualified Code(s): I25.10 - Atherosclerotic heart disease of [place] coronary artery without angina pectoris (7) Cirrhosis, alcoholic Code(s): K70.30 - ALCOHOLIC CIRRHOSIS OF LIVER WITHOUT ASCITES Qualifiers: Ascites presence: with ascites Qualified Code(s): K70.31 - Alcoholic cirrhosis of liver with ascites (8) 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 (9) Hypersplenism Code(s): D73.1 - HYPERSPLENISM (10) Hypertension Code(s): I10 - ESSENTIAL (PRIMARY) HYPERTENSION Qualifiers: Hypertension type: essential hypertension Qualified Code(s): I10 - Essential (primary) hypertension (11) Pancytopenia Code(s): D61.818 - OTHER PANCYTOPENIA (12) Presence of permanent cardiac pacemaker Code(s): Z95.0 - PRESENCE OF CARDIAC PACEMAKER (13) Septic arthritis Code(s): M00.9 - PYOGENIC ARTHRITIS, UNSPECIFIED Qualifiers: Septic arthritis location: hip Laterality: left
[2018-06-10] MEDS ORDERED: PT OWN MED DRAWER 7, Y5N ONE ×3 (09:45→20:24)
[2018-06-10] MEDS: PANTOPRAZOLE 40 MG TABLET (FP) PO SCH (10:01)
[2018-06-10] MEDS: SPIRONOLACTONE 25 MG TABLET (FP) PO SCH (10:01)
[2018-06-10] MEDS: ISOSORBIDE MONONITRATE 30 MG TAB.SR.24H (FP) PO SCH (10:01)
[2018-06-10 10:32] LABS: BASO % 1.1 % (0-2.0); EOS % 5.7 % (0-4.5); HEMATOCRIT 25.3 % (35.4-49); LYMPH % 18.3 % (8-40); MCH 27.4 pg (25.7-33.7); MCHC 31.4 g/dl (32.0-35.9); MEAN PLT VOLUME 8.2 fl (7.5-11.1); MONO % 14.9 % (3.8-10.2); PLATELET COUNT 81 K/MM3 (134-434); RBC 2.91 M/mm3 (4.00-5.60); RDW 18.9 % (11.9-15.9); WHITE BLOOD COUNT 2.1 K/mm3 (4.0-10.0)
[2018-06-10] MEDS: NADOLOL 20 MG TABLET (FP) PO SCH (10:45)
[2018-06-10 11:07] LABS: ANISOCYTOSIS 1+; MACROCYTOSIS 1+; PLATELET ESTIMATE DECREASED
--- NOTE | 2018-06-10 11:45 | CON.CARD ---
Consult Consult Specialty:: Cardiology for Dr. Tillman Referred by:: Dr. Yao Reason for Consultation:: Anasarca - History of Present Illness Chief Complaint: Increased wound drainage, anasarca History of Present Illness: 82 year old male with a significant PMH of etoh cirrhosis, afib, obesity, prostate ca, colon polyps, hypertension, hypercholesterolemia, left hip replacement, left knee arthroscopy, CAD,CHF, CHB s/p PPM, MT, and anemia referred by VNS for increased serosanguinous discharge from left hip fistula post abx course for presumed septic arthritis of left hip, he feals weaker, with occasional dizzyness, reports persistent anasarca and low albumin level is contributing to his large amount of persistent hip drainage. pt was referred to er for iv diuresis and icv albumin infusion to try to decrease his ansarca and consequently his hip drainage. He reports dyspnea, orthopnea, abd distension and LE edema, denies chest pain, palpitations, near or true syncope. - Past Medical History Cardio/Vascular: Yes: AFIB (paroxysmal), Aortic Insufficiency, CAD (STEMI 2012 after THR, s/p card.cath.), HTN, Hyperlipdemia, MT (STEMI 2012), Other (PPM, PAFib-not on AC due to thrombocytopenia and anemia) Pulmonary: Yes: Bronchitis Gastrointestinal: Yes: Gastritis (gastric antrum varices and portal gastopathy) , GERD, GI Bleed (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), Other (EGD 03/03 gastric and duodenal varices, portal gastropathy, Colonoscopy 2016: rignt an tx colon adenomas were removed, small angiodysplastic lesion at cecum, internal hemorrhoids.) Hepatobiliary: Yes: Cirrhosis (Alcoholic cirrhosis) Renal/: Yes: Cancer (h/o prostate ca treated with RT), Other (prostate cancer treated with RT) Infectious Disease: Yes: Other (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) Musculoskeletal: Yes: Osteoarthritis Endocrine: Yes: Diabetes Mellitus - Past Surgical History Past Surgical History: Yes: Amputation (accidental distal left hand 2nd digit), Arthrosocopy (left knee), Colonoscopy, Joint Replacement (L THR 2012 with subsequent removal of hardware), Permanent Pacemaker (leadless placed in ) , Upper Endoscopy - Alcohol/Substance Use Hx Alcohol Use: Yes (quit 03/03) History of Substance Use: reports: None Date of Last Use: 02/24/17 - Smoking History Smoking history: Former smoker Have you smoked in the past 12 months: No Aproximately how many cigarettes per day: 0 If you are a former smoker, when did you quit?: many years - Social History Usual Living Arrangement: Alone ADL: Independent 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 History of Recent Travel: No Home Medications - Allergies Allergies/Adverse Reactions: Allergies Allergy/AdvReac Type Severity Reaction Status Date / Time cephalexin Allergy Verified 06/09/18 14:22 - Home Medications Home Medications: Ambulatory Orders Isosorbide Mononitrate [Isosorbide Mononitrate ER] 30 mg PO DAILY 03/04/18 Nadolol 20 mg PO DAILY 03/04/18 Simvastatin 20 mg PO DAILY 03/04/18 Spironolactone 25 mg PO DAILY 03/04/18 Acetaminophen [Tylenol .Regular Strength -] 650 mg PO Q6H PRN tablet 05/09/18 Amoxicillin - [Amoxicillin 875mg Tablet -] 875 mg PO BID #60 tab 05/09/18 Pantoprazole Sodium [Protonix -] 40 mg PO DAILY tablet.ec 05/09/18 Torsemide [Demadex -] 10 mg PO DAILY tablet 05/09/18 Zolpidem Tartrate [Ambien] 5 mg PO HS 06/09/18 Family Disease History - Family Disease History Family Disease History: Diabetes: Mother ( 98 pancreatic cancer), CA: Mother , Brother (colon cancer,prostate cancer, alcoholic cirrhosis), Respiratory: Father ( age 54 pneumonia) Review of Systems - Review of Systems Cardiovascular: reports: Edema Vital Signs: Vital Signs Temperature 97.9 F 06/10/18 07:55 Pulse Rate 59 L 06/10/18 07:55 Respiratory Rate 20 06/10/18 07:55 Blood Pressure 114/53 06/10/18 07:55 O2 Sat by Pulse Oximetry (%) 99 06/09/18 21:00 Constitutional: Yes: No Distress, Calm Neck: Yes: Supple Respiratory: Yes: Regular, Diminished Gastrointestinal: Yes: Normal Bowel Sounds, Ascites, Distention Cardiovascular: Yes: Regular Rate and Rhythm JVD: No Carotid Bruit: No Heart Sounds: Yes: S1, S2 Murmur: Yes: Systolic Murmur, Grade 2 Edema: Yes Edema: LLE: 2+, RLE: 2+ - Other Data Labs, Other Data: CBC, BMP 06/10/18 10:05 06/10/18 06:15 INR, PTT INR 1.18 (0.83-1.09) H 06/09/18 15:15 Afib v-paced @ 66 Imaging - Results Chest X-ray: Report Reviewed (NAD) Problem List - Problems (1) Alcoholic cirrhosis of liver with ascites Code(s): K70.31 - ALCOHOLIC CIRRHOSIS OF LIVER WITH ASCITES (2) Anasarca Code(s): R60.1 - GENERALIZED EDEMA (3) Atrial fibrillation Code(s): I48.91 - UNSPECIFIED ATRIAL FIBRILLATION Qualifiers: Atrial fibrillation type: chronic Qualified Code(s): I48.2 - Chronic atrial fibrillation (4) CAD (coronary artery disease) Code(s): I25.10 - ATHSCL HEART DISEASE OF [place] CORONARY ARTERY W/O ANG PCTRS Qualifiers: Coronary Disease-Associated Artery/Lesion type: [place] artery [place] vs. 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 (6) HLD (hyperlipidemia) Code(s): E78.5 - HYPERLIPIDEMIA, UNSPECIFIED Qualifiers: Hyperlipidemia type: pure hypercholesterolemia Qualified Code(s): E78.00 - Pure hypercholesterolemia, unspecified; E78.0 - Pure hypercholesterolemia (7) Hypertension Code(s): I10 - ESSENTIAL (PRIMARY) HYPERTENSION Qualifiers: Hypertension type: essential hypertension Qualified Code(s): I10 - Essential (primary) hypertension (8) Left hip postoperative wound infection Code(s): T81.4XXA - INFECTION FOLLOWING A PROCEDURE, INITIAL ENCOUNTER; B99.9 - UNSPECIFIED INFECTIOUS DISEASE Qualifiers: Encounter type: sequela Qualified Code(s): T81.4XXS - Infection following a procedure, sequela; B99.9 - Unspecified infectious disease (9) Peripheral edema Code(s): R60.9 - EDEMA, UNSPECIFIED (10) Presence of permanent cardiac pacemaker Code(s): Z95.0 - PRESENCE OF CARDIAC PACEMAKER (11) Systolic and diastolic CHF w/reduced LV function, NYHA class 4 Code(s): I50.40 - UNSP COMBINED SYSTOLIC AND DIASTOLIC (CONGESTIVE) HRT FAIL Assessment/Plan 04/22/2018 Echo: Mildly decreased LV fxn with moderate apical and septal HK, mild-mod anterior HK, mod MR, TR, mildly decreased RV fxn 1. Acute on chronic combined systolic and diastolic CHF with new wall motion abnormalities 2. CAD s/p PCI 3. Persistent afib s/p PPM 4. Cirrhosis with ascites 5. CKD REC: 1. IV diuresis and Aldactone with albumin, compression therapy 2. Monitor Hgb post transfusion 3. Continue Imdur 30 qd, Nadolol 20 qd, Lipitor 10 qd, empiric abx course 4. Not on a/c due to chronic liver disease and varices 5. Thank you for consultative opportunity
--- NOTE | 2018-06-10 12:03 | EKG ---
Test Reason : Blood Pressure : / mmHG Vent. Rate : 066 BPM Atrial Rate : 062 BPM P-R Int : 000 ms QRS Dur : 168 ms QT Int : 480 ms P-R-T Axes : 000 -64 097 degrees QTc Int : 503 ms Ventricular-paced rhythm ABNORMAL ECG WHEN COMPARED WITH ECG OF 06-JUN-2018 19:41, VENT. RATE HAS INCREASED BY 9 BPM Confirmed by CATHERINE FORDE MD ([id number]) on 06/10/2018 12:03:27 PM Referred By: Confirmed By:CATEHRINE FORDE MD
[2018-06-10] MEDS: ATORVASTATIN CA 10 MG TABLET (FP) PO SCH (21:42)
[2018-06-10] MEDS: ZOLPIDEM TARTRATE 5 MG TABLET PO PRN (21:43)
[2018-06-11] MEDS: FUROSEMIDE 40 MG/4 ML INJECTABLE VIAL IVPUSH SCH ×3 (01:51→18:04)
[2018-06-11] MEDS: ALBUMIN HUMAN 25% 12.5 GM/50 ML VIAL IVPB SCH (06:13)
[2018-06-11] MEDS: AMOXICILLIN 500 MG CAPSULE (FP) PO SCH ×3 (06:13→21:25)
[2018-06-11 09:24] LABS: BASO % 1.2 % (0-2.0); EOS % 5.8 % (0-4.5); HEMATOCRIT 28.8 % (35.4-49); HEMOGLOBIN 9.4 GM/dL (11.7-16.9); LYMPH % 21.8 % (8-40); MCH 28.1 pg (25.7-33.7); MCHC 32.6 g/dl (32.0-35.9); MEAN CELL VOLUME 86.1 fl (80-96); MEAN PLT VOLUME 8.3 fl (7.5-11.1); MONO % 15.1 % (3.8-10.2); NEUT % 56.1 % (42.8-82.8); PLATELET COUNT 95 K/MM3 (134-434); RBC 3.35 M/mm3 (4.00-5.60); RDW 17.1 % (11.9-15.9); WHITE BLOOD COUNT 2.5 K/mm3 (4.0-10.0)
[2018-06-11 09:37] LABS: ALBUMIN 2.7 g/dl (3.4-5.0); BLOOD UREA NITROGEN 21 mg/dL (7-18); CALCIUM 8.3 mg/dL (8.5-10.1); CHLORIDE 103 mmol/L (98-107); POTASSIUM 3.8 mmol/L (3.5-5.1); SODIUM 140 mmol/L (136-145)
--- NOTE | 2018-06-11 09:39 | PN ---
Progress Note (short form) - Note Progress Note: CBC, BMP 06/11/18 08:40 Vital Signs Period Temp Pulse Resp BP Sys/Brothers Pulse Ox Last 24 Hr 97.5 F-98.4 F 51-60 18-20 117-144/51-74 100 s1s2 rrr lungs cta abd soft +bs ++lower ext edema-better aaox3 hip drainage edema, peripheral with cirrhosis aortic insuff cad/chr syst+diast. chf afib persistent iron def. anemia pancytopenia finishing albumin this am cont iv diuresis for one more day blood count much better after transfusion dressing change ongoing twice daily needs social work supervisor for VN upon dc Problem List - Problems (1) Fistula of left hip Code(s): M25.152 - FISTULA, LEFT HIP (2) Acute on chronic diastolic (congestive) heart failure Code(s): I50.33 - ACUTE ON CHRONIC DIASTOLIC (CONGESTIVE) HEART FAILURE (3) Anasarca Code(s): R60.1 - GENERALIZED EDEMA (4) Anemia Code(s): D64.9 - ANEMIA, UNSPECIFIED Qualifiers: Anemia type: iron deficiency Iron deficiency anemia type: other iron deficiency Qualified Code(s): D50.8 - Other iron deficiency anemias (5) Atrial fibrillation Code(s): I48.91 - UNSPECIFIED ATRIAL FIBRILLATION Qualifiers: Atrial fibrillation type: chronic Qualified Code(s): I48.2 - Chronic atrial fibrillation (6) CAD (coronary artery disease) Code(s): I25.10 - ATHSCL HEART DISEASE OF [place] CORONARY ARTERY W/O ANG PCTRS Qualifiers: Coronary Disease-Associated Artery/Lesion type: [place] artery [place] vs. 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
[2018-06-11 09:42] LABS: ALK PHOS 105 U/L (45-117); ANION GAP 8 MMOL/L (8-16); BILIRUBIN,TOTAL 1.5 mg/dL (0.2-1.0); CO2 29 mmol/L (21-32); CREATININE 0.9 mg/dL (0.7-1.3); GLUCOSE,RANDOM 132 mg/dL (74-106); SGOT/AST 34 U/L (15-37); SGPT/ALT 22 U/L (12-78); TOT PROT 6.1 g/dl (6.4-8.2)
[2018-06-11] MEDS ORDERED: PT OWN MED DRAWER 7, Y5N ONE ×4 (10:35→21:07)
[2018-06-11] MEDS: PANTOPRAZOLE 40 MG TABLET (FP) PO SCH (11:48)
[2018-06-11] MEDS: ISOSORBIDE MONONITRATE 30 MG TAB.SR.24H (FP) PO SCH (11:48)
[2018-06-11] MEDS: NADOLOL 20 MG TABLET (FP) PO SCH (11:48)
[2018-06-11] MEDS: SPIRONOLACTONE 25 MG TABLET (FP) PO SCH (11:49)
--- NOTE | 2018-06-11 12:42 | PN ---
Progress Note, Physician Chief Complaint: Pt is alert and oriented; wanted to go home, but still with LE edema. History of Present Illness: The patient is an 83 year old white male with PMHx of alcohol cirrhosis, afib, obesity, prostate ca, colon polyps, hypertension, hypercholesterolemia, left hip replacement, left knee arthroscopy, CAD,CHF (mildl systolic LV dysfunction) , CHB, [place], and anemia , who presents with left hip wound w/ drainage, worsening LE edema, and sob. Patient has chief complaint of left hip wound w/ drainage over the past 4-[address] Luna Stern sent her here because of fluid overload to be admitted. Cardio/Vascular: AFIB (paroxysmal), Aortic Insufficiency, CAD (STEMI 2012 after THR, s/p card.cath.), HTN, Hyperlipdemia, [place] (STEMI 2012); PPM; PAFib-not on AC due to thrombocytopenia and anemia) Pulmonary: Bronchitis - Current Medication List Current Medications: Active Medications Acetaminophen (Tylenol -) 650 mg PO Q6H PRN PRN Reason: FEVER Last Admin: 06/10/18 21:42 Dose: 650 mg Amoxicillin (Amoxicillin -) 500 mg PO TID [facility]IA[facility] Last Admin: 06/11/18 06:13 Dose: 500 mg Atorvastatin Calcium (Lipitor -) 10 mg PO HS [facility] Last Admin: 06/10/18 21:42 Dose: 10 mg Furosemide (Lasix Injection -) 40 mg IVPUSH Q8H-IV [facility] Last Admin: 06/11/18 11:49 Dose: 40 mg Isosorbide Mononitrate (Imdur -) 30 mg PO DAILY [facility] Last Admin: 06/11/18 11:48 Dose: 30 mg Nadolol (Corgard -) 20 mg PO DAILY [facility] Last Admin: 06/11/18 11:48 Dose: 20 mg Pantoprazole Sodium (Protonix -) 40 mg PO DAILY [facility] Last Admin: 06/11/18 11:48 Dose: 40 mg Spironolactone (Aldactone -) 25 mg PO DAILY [facility] Last Admin: 06/11/18 11:49 Dose: 25 mg Zolpidem Tartrate (Ambien -) 5 mg PO HS PRN PRN Reason: INSOMNIA Last Admin: 06/10/18 21:43 Dose: 5 mg - Objective Vital Signs: Vital Signs Temperature 98.0 F 06/11/18 09:00 Pulse Rate 57 L 06/11/18 09:00 Respiratory Rate 18 06/11/18 09:00 Blood Pressure 115/48 06/11/18 09:00 O2 Sat by Pulse Oximetry (%) 98 06/11/18 12:00 Constitutional: Yes: Anxious Eyes: Yes: WNL HENT: Yes: WNL Neck: Yes: Supple Cardiovascular: Yes: S2 (split) Labs: CBC, BMP 06/11/18 08:40 06/11/18 08:40 INR, PTT INR 1.18 (0.83-1.09) H 06/09/18 15:15 Problem List - Problems (1) Alcoholic cirrhosis of liver with ascites Code(s): K70.31 - ALCOHOLIC CIRRHOSIS OF LIVER WITH ASCITES (2) Anasarca Code(s): R60.1 - GENERALIZED EDEMA (3) Acute on chronic combined systolic and diastolic CHF (congestive heart failure) Assessment/Plan: On nadolol. Continue IV furosemideq 8h; spironolatone PO. F/u BUN/Cr, electrolyte, Is ans Os, daily weight. Code(s): I50.43 - ACUTE ON CHRONIC COMBINED SYSTOLIC AND DIASTOLIC HRT FAIL (4) Pancytopenia Assessment/Plan: improved Hb after PRBCs. Code(s): D61.818 - OTHER PANCYTOPENIA (5) Fistula of hip Code(s): M25.159 - FISTULA, UNSPECIFIED HIP
[2018-06-11] MEDS: ACETAMINOPHEN 325 MG TABLET (FP) PO PRN (19:07)
[2018-06-11] MEDS: ZOLPIDEM TARTRATE 5 MG TABLET PO PRN (20:30)
[2018-06-11] MEDS: ATORVASTATIN CA 10 MG TABLET (FP) PO SCH (21:25)
[2018-06-12] MEDS ORDERED: PT OWN MED DRAWER 7, Y5N ONE ×2 (02:04→10:07)
[2018-06-12] MEDS: FUROSEMIDE 40 MG/4 ML INJECTABLE VIAL IVPUSH SCH (02:07)
[2018-06-12] MEDS: AMOXICILLIN 500 MG CAPSULE (FP) PO SCH (05:25)
[2018-06-12 07:48] LABS: BASO % 1.1 % (0-2.0); HEMATOCRIT 28.8 % (35.4-49); HEMOGLOBIN 9.3 GM/dL (11.7-16.9); LYMPH % 20.9 % (8-40); MCH 27.9 pg (25.7-33.7); MCHC 32.4 g/dl (32.0-35.9); MEAN CELL VOLUME 85.9 fl (80-96); MEAN PLT VOLUME 8.4 fl (7.5-11.1); MONO % 17.9 % (3.8-10.2); NEUT % 54.1 % (42.8-82.8); PLATELET COUNT 90 K/MM3 (134-434); RBC 3.35 M/mm3 (4.00-5.60); RDW 16.9 % (11.9-15.9); WHITE BLOOD COUNT 2.7 K/mm3 (4.0-10.0)
[2018-06-12 08:21] LABS: CHLORIDE 102 mmol/L (98-107); POTASSIUM 3.6 mmol/L (3.5-5.1); SODIUM 139 mmol/L (136-145)
[2018-06-12 08:28] LABS: ALBUMIN 2.5 g/dl (3.4-5.0); ALK PHOS 107 U/L (45-117); ANION GAP 5 MMOL/L (8-16); BILIRUBIN,TOTAL 1.1 mg/dL (0.2-1.0); BLOOD UREA NITROGEN 19 mg/dL (7-18); CALCIUM 7.9 mg/dL (8.5-10.1); CO2 32 mmol/L (21-32); CREATININE 0.8 mg/dL (0.7-1.3); GLUCOSE,RANDOM 100 mg/dL (74-106); SGOT/AST 31 U/L (15-37); SGPT/ALT 20 U/L (12-78)
[2018-06-12 09:02] LABS: CHOLESTEROL 84 mg/dL (50-200); HDL CHOLESTEROL 39 mg/dL (40-60); TRIGLYCERIDES 81 mg/dL (35-160)
--- NOTE | 2018-06-12 09:22 | PN ---
Progress Note, Physician Chief Complaint: Pt sitting up on bed; wants his left hip "fixed". History of Present Illness: The patient is an 83 year old white male with PMHx of alcohol cirrhosis, afib, obesity, prostate ca, colon polyps, hypertension, hypercholesterolemia, left hip replacement, left knee arthroscopy, CAD,CHF (mildl systolic LV dysfunction) , CHB, [place], and anemia , who presents with left hip wound w/ drainage, worsening LE edema, and sob. Patient has chief complaint of left hip wound w/ drainage over the past 4-[address] Luna Stern sent her here because of fluid overload to be admitted. Cardio/Vascular: AFIB (paroxysmal), Aortic Insufficiency, CAD (STEMI 2012 after THR, s/p card.cath.), HTN, Hyperlipdemia, [place] (STEMI 2012); PPM; PAFib-not on AC due to thrombocytopenia and anemia) Pulmonary: Bronchitis - Current Medication List Current Medications: Active Medications Acetaminophen (Tylenol -) 650 mg PO Q6H PRN PRN Reason: FEVER Last Admin: 06/11/18 19:07 Dose: 650 mg Amoxicillin (Amoxicillin -) 500 mg PO TID [facility] Last Admin: 06/12/18 05:25 Dose: 500 mg Atorvastatin Calcium (Lipitor -) 10 mg PO HS MARIAH Last Admin: 06/11/18 21:25 Dose: 10 mg Furosemide (Lasix Injection -) 40 mg IVPUSH Q8H-IV [facility]IA[facility] Last Admin: 06/12/18 02:07 Dose: 40 mg Isosorbide Mononitrate (Imdur -) 30 mg PO DAILY [facility] Last Admin: 06/11/18 11:48 Dose: 30 mg Nadolol (Corgard -) 20 mg PO DAILY [facility] Last Admin: 06/11/18 11:48 Dose: 20 mg Pantoprazole Sodium (Protonix -) 40 mg PO DAILY [facility] Last Admin: 06/11/18 11:48 Dose: 40 mg Spironolactone (Aldactone -) 25 mg PO DAILY [facility] Last Admin: 06/11/18 11:49 Dose: 25 mg Zolpidem Tartrate (Ambien -) 5 mg PO HS PRN PRN Reason: INSOMNIA Last Admin: 06/11/18 20:30 Dose: 5 mg - Objective Vital Signs: Vital Signs Temperature 97.3 F L 06/12/18 08:01 Pulse Rate 51 L 06/12/18 08:01 Respiratory Rate 20 06/12/18 08:01 Blood Pressure 133/66 06/12/18 08:01 O2 Sat by Pulse Oximetry (%) 98 06/11/18 21:00 Labs: CBC, BMP 06/12/18 07:10 06/12/18 07:10 INR, PTT INR 1.18 (0.83-1.09) H 06/09/18 15:15 Problem List - Problems (1) Alcoholic cirrhosis of liver with ascites Code(s): K70.31 - ALCOHOLIC CIRRHOSIS OF LIVER WITH ASCITES (2) Anasarca Code(s): R60.1 - GENERALIZED EDEMA (3) Acute on chronic combined systolic and diastolic CHF (congestive heart failure) Assessment/Plan: On nadolol. Continue furosemideq q8 or 12 h; may change to PO ; spironolatone PO. F/u BUN/Cr, electrolyte, Is ans Os, daily weight. Code(s): I50.43 - ACUTE ON CHRONIC COMBINED SYSTOLIC AND DIASTOLIC HRT FAIL (4) Pancytopenia Code(s): D61.818 - OTHER PANCYTOPENIA (5) Fistula of hip Code(s): M25.159 - FISTULA, UNSPECIFIED HIP
[2018-06-12] MEDS ORDERED: FUROSEMIDE 40 MG TABLET (FP) PO SCH (09:45)
[2018-06-12 09:47] VITALS: BP 131/59; PULSE 57; TEMP 98.3
[2018-06-12] MEDS: SPIRONOLACTONE 25 MG TABLET (FP) PO SCH (10:06)
[2018-06-12] MEDS: PANTOPRAZOLE 40 MG TABLET (FP) PO SCH (10:06)
[2018-06-12] MEDS: ISOSORBIDE MONONITRATE 30 MG TAB.SR.24H (FP) PO SCH (10:06)
[2018-06-12] MEDS: NADOLOL 20 MG TABLET (FP) PO SCH (10:08)
--- NOTE | 2018-06-12 10:21 | HP ---
Admitting History and Physical - Primary Care Physician PCP: Luna Mera - Past Medical History Cardiovascular: Yes: AFIB (paroxysmal), Aortic Insufficiency, CAD (STEMI 2012 after THR, s/p card.cath.), HTN, Hyperlipdemia, [place] (STEMI 2012), Other (PPM, PAFib-not on AC due to thrombocytopenia and anemia) Pulmonary: Yes: Bronchitis Gastrointestinal: Yes: Gastritis (gastric antrum varices and portal gastopathy) , GERD, GI Bleed (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), Other (EGD 03/03 gastric and duodenal varices, portal gastropathy, Colonoscopy 2016: rignt an tx colon adenomas were removed, small angiodysplastic lesion at cecum, internal hemorrhoids.) Hepatobiliary: Yes: Cirrhosis (Alcoholic cirrhosis) Renal/: Yes: Cancer (h/o prostate ca treated with RT), Other (prostate cancer treated with RT) Heme/Onc: Yes: Anemia (pancytopenia) Infectious Disease: Yes: Other (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) Musculoskeletal: Yes: Osteoarthritis Endocrine: Yes: Diabetes Mellitus - Past Surgical History Past Surgical History: Yes: Amputation (accidental distal left hand 2nd digit), Arthrosocopy (left knee), Colonoscopy, Joint Replacement (L THR 2012 with subsequent removal of hardware), Permanent Pacemaker (leadless placed in ) , Upper Endoscopy - Smoking History Smoking history: Former smoker Have you smoked in the past 12 months: No Aproximately how many cigarettes per day: 0 If you are a former smoker, when did you quit?: many years - Alcohol/Substance Use Hx Alcohol Use: No History of Substance Use: reports: None Date of Last Use: 02/24/17 - Social History ADL: Independent 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 History of Recent Travel: No Home Medications - Allergies Allergies/Adverse Reactions: Allergies Allergy/AdvReac Type Severity Reaction Status Date / Time cephalexin Allergy Verified 06/09/18 14:22 - Home Medications Home Medications: Ambulatory Orders Isosorbide Mononitrate [Isosorbide Mononitrate ER] 30 mg PO DAILY 03/04/18 Nadolol 20 mg PO DAILY 03/04/18 Simvastatin 20 mg PO DAILY 03/04/18 Spironolactone 25 mg PO DAILY 03/04/18 Acetaminophen [Tylenol .Regular Strength -] 650 mg PO Q6H PRN tablet 05/09/18 Amoxicillin - [Amoxicillin 875mg Tablet -] 875 mg PO BID #60 tab 05/09/18 Pantoprazole Sodium [Protonix -] 40 mg PO DAILY tablet.ec 05/09/18 Torsemide [Demadex -] 10 mg PO DAILY tablet 05/09/18 Zolpidem Tartrate [Ambien] 5 mg PO HS 06/09/18 Family Disease History - Family Disease History Family Disease History: Diabetes: Mother ( 98 pancreatic cancer), CA: Mother , Brother (colon cancer,prostate cancer, alcoholic cirrhosis), Respiratory: Father ( age 54 pneumonia) Physical Examination Vital Signs: Vital Signs Temperature 98.3 F 06/12/18 09:00 Pulse Rate 57 L 06/12/18 09:00 Respiratory Rate 18 06/12/18 09:00 Blood Pressure 131/59 06/12/18 09:00 O2 Sat by Pulse Oximetry (%) 98 06/11/18 21:00 Labs: CBC, BMP 06/12/18 07:10 06/12/18 07:10 Problem List - Problems (1) Fistula of left hip Code(s): M25.152 - FISTULA, LEFT HIP (2) Acute on chronic diastolic (congestive) heart failure Code(s): I50.33 - ACUTE ON CHRONIC DIASTOLIC (CONGESTIVE) HEART FAILURE (3) Anasarca Code(s): R60.1 - GENERALIZED EDEMA (4) Anemia Code(s): D64.9 - ANEMIA, UNSPECIFIED Qualifiers: Anemia type: iron deficiency Iron deficiency anemia type: other iron deficiency Qualified Code(s): D50.8 - Other iron deficiency anemias (5) Atrial fibrillation Code(s): I48.91 - UNSPECIFIED ATRIAL FIBRILLATION Qualifiers: Atrial fibrillation type: chronic Qualified Code(s): I48.2 - Chronic atrial fibrillation (6) CAD (coronary artery disease) Code(s): I25.10 - ATHSCL HEART DISEASE OF [place] CORONARY ARTERY W/O ANG PCTRS Qualifiers: Coronary Disease-Associated Artery/Lesion type: [place] artery [place] vs. transplanted heart: [place] heart Associated angina: without angina Qualified Code(s): I25.10 - Atherosclerotic heart disease of [place] coronary artery without angina pectoris (7) Cirrhosis, alcoholic Code(s): K70.30 - ALCOHOLIC CIRRHOSIS OF LIVER WITHOUT ASCITES Qualifiers: Ascites presence: with ascites Qualified Code(s): K70.31 - Alcoholic cirrhosis of liver with ascites (8) 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 (9) Hypersplenism Code(s): D73.1 - HYPERSPLENISM (10) Hypertension Code(s): I10 - ESSENTIAL (PRIMARY) HYPERTENSION Qualifiers: Hypertension type: essential hypertension Qualified Code(s): I10 - Essential (primary) hypertension (11) Pancytopenia Code(s): D61.818 - OTHER PANCYTOPENIA (12) Presence of permanent cardiac pacemaker Code(s): Z95.0 - PRESENCE OF CARDIAC PACEMAKER (13) Septic arthritis Code(s): M00.9 - PYOGENIC ARTHRITIS, UNSPECIFIED Qualifiers: Septic arthritis location: hip Laterality: left
--- NOTE | 2018-06-12 10:23 | DS ---
Physical Examination Vital Signs: Vital Signs Temperature 98.3 F 06/12/18 09:00 Pulse Rate 57 L 06/12/18 09:00 Respiratory Rate 18 06/12/18 09:00 Blood Pressure 131/59 06/12/18 09:00 O2 Sat by Pulse Oximetry (%) 98 06/11/18 21:00 Constitutional: Yes: No Distress, Calm Eyes: Yes: Conjunctiva Clear HENT: Yes: Normocephalic Neck: Yes: Trachea Midline Cardiovascular: Yes: Regular Rate and Rhythm Respiratory: Yes: Regular, CTA Bilaterally Gastrointestinal: Yes: Normal Bowel Sounds, Soft Musculoskeletal: Yes: Back Pain, Other (left hip pain better) Edema: Yes Edema: LLE: 2+ (up to mid [place]), RLE: 2+ (up to mid [place]) Peripheral Pulses WNL: Yes Wound/Incision: Yes: Dressing Dry and Intact, Other (still has serosanguinous discharge from left hip, needs dressing change once daily) Neurological: Yes: WNL ...Motor Strength: WNL Psychiatric: Yes: WNL Labs: CBC, BMP 06/12/18 07:10 06/12/18 07:10 Discharge Summary Reason For Visit: HEPATIC CIRRHOSIS; WOUND DRAINAGE Current Active Problems Acute on chronic combined systolic and diastolic CHF (congestive heart failure) (Acute) Alcoholic cirrhosis of liver with ascites (Acute) Anasarca (Acute) Cirrhosis, alcoholic (Acute) Family history of malignant neoplasm of colon in first degree relative diagnosed when younger than 60 years of age (Acute) Fistula of hip (Acute) Fistula of left hip (Acute) Peripheral edema (Acute) Shortness of breath (Acute) Hospital Course: admitted for copious amount left hip drainage, h/o septic arthritis, edema, peripheral with cirrhosis aortic insuff cad/chr syst+diast. chf afib persistent iron def. anemia pancytopenia was given iv albumin and iv lasix to decrease third spacing and help decrease hip drainage output. also was noted worsening pancytopenia, improved after 2 unit PRBC transfusion currently edema and hip drainage much improved, medically stable to dc home with vns plan is for vns dressing change and pt will/can also come to the office daily mo -fri for dressing change. Condition: Stable - Instructions Diet, Activity, Other Instructions: daily dressing change with rosalindad dr arevalo next week Disposition: VNS/HOME HEALTH CARE - Home Medications Comprehensive Discharge Medication List: Ambulatory Orders Current Medications Acetaminophen (Tylenol -) 650 mg PO Q6H PRN PRN Reason: FEVER Last Admin: 06/11/18 19:07 Dose: 650 mg Amoxicillin (Amoxicillin -) 875 BID Atorvastatin Calcium (Lipitor -) 10 mg PO HS [facility] Last Admin: 06/11/18 21:25 Dose: 10 mg Furosemide (Lasix -) 40 mg PO TID@0600,1200,1800 [facility] Last Admin: 06/12/18 10:06 Dose: 40 mg Isosorbide Mononitrate (Imdur -) 30 mg PO DAILY [facility] Last Admin: 06/12/18 10:06 Dose: 30 mg Nadolol (Corgard -) 20 mg PO DAILY [facility] Last Admin: 06/12/18 10:08 Dose: 20 mg Pantoprazole Sodium (Protonix -) 40 mg PO DAILY [facility] Last Admin: 06/12/18 10:06 Dose: 40 mg Spironolactone (Aldactone -) 25 mg PO DAILY [facility] Last Admin: 06/12/18 10:06 Dose: 25 mg Zolpidem Tartrate (Ambien -) 5 mg PO HS PRN PRN Reason: INSOMNIA Last Admin: 06/11/18 20:30 Dose: 5 mg
== END 2018-06-12 10:58 | disposition home health service (06) | DRG 555 ==
LOC: JER 14:15 → JERBED 16:21 → J5S 20:21
PROVIDERS: ADMIT Internal Medicine; ATTEND Internal Medicine
PROC: 30233N1 Transfusion of Nonautologous Red Blood Cells into Peripheral Vein, Percutaneous Approach (ICD-10-PCS; principal; 2018-06-10)
DX: M25.152 Fistula, left hip (principal); I50.43 Acute on chronic combined systolic (congestive) and diastolic (congestive) heart failure; D61.818 Other pancytopenia; D50.8 Other iron deficiency anemias; I11.0 Hypertensive heart disease with heart failure; K70.31 Alcoholic cirrhosis of liver with ascites; R60.1 Generalized edema; I10 Essential (primary) hypertension; E78.00 Pure hypercholesterolemia, unspecified; K63.5 Polyp of colon; E66.9 Obesity, unspecified; Z68.29 Body mass index [BMI] 29.0-29.9, adult; I25.10 Atherosclerotic heart disease of native coronary artery without angina pectoris; I25.2 Old myocardial infarction; D64.9 Anemia, unspecified; R60.9 Edema, unspecified; K42.9 Umbilical hernia without obstruction or gangrene; M00.9 Pyogenic arthritis, unspecified; I86.4 Gastric varices; D12.6 Benign neoplasm of colon, unspecified; I48.2 Chronic atrial fibrillation; D73.1 Hypersplenism; K29.70 Gastritis, unspecified, without bleeding; E11.9 Type 2 diabetes mellitus without complications; K21.9 Gastro-esophageal reflux disease without esophagitis; Z95.0 Presence of cardiac pacemaker; Z89.422 Acquired absence of other left toe(s); Z87.891 Personal history of nicotine dependence; Z96.642 Presence of left artificial hip joint; Z85.46 Personal history of malignant neoplasm of prostate; Z80.0 Family history of malignant neoplasm of digestive organs; Z95.5 Presence of coronary angioplasty implant and graft
CPT/HCPCS: 36415; 36430; 36511; 71045-TC-FY; 76705-TC; 80053; 80061; 81003; 82105; 83721; 85025; 85610; 86850; 86900; 86901; 86922; 87040; 87070; 87086; 87186; 87205; 93005; 93010; 99284-25; A6213; G0463-25; P9038; P9047; P9058